=== PATIENT | female | born 1955 | race African-American/Black ===

== ENCOUNTER 2016-10-31 12:36 | Emergency (ER) | payer OTHER ==
[~2016-10-31] VITALS: Ht 162.6 cm; Wt 81.6 kg
[~2016-10-31 12:36] MED LIST: ALPRAZOLAM0.5 MG PO; AMLODIPINE BESY10 MG ORAL; ASPIR 8181 MG ORAL; AZITHROMYCIN250 MG ORAL; BACTRIM-DS1 EA ORAL; BENADRYL25 MG ORAL; BENAZEPRIL HCL20 MG ORAL; GLIMEPIRIDE2 MG ORAL; IBUPROFEN600 MG ORAL; LACTULOSE20 GM/301 ORAL; LEVAQUIN500 MG ORAL; METFORMIN HCL850 M1 ORAL; PHENERGAN6.25 MG/5 ORAL; PROAIR HFA8.5 GM INH; PROMETHAZINE-C118 M1 ORAL; ROBITUSSIN COU118 M4 PO; TENORMIN25 MG ORAL; XANAX0.5 MG ORAL; ZITHROMAX250 MG ORAL
[2016-10-31 13:05] VITALS: BP 123/78
[2016-10-31] MEDS ORDERED: FLONASE ALLERG9.9 ML NS (13:19)
[2016-10-31] MEDS ORDERED: CLARITIN-D 241 EACH PO (13:19)
[2016-10-31 13:26] VITALS: BP 123/78
--- NOTE | 2016-10-31 14:44 | Emergency Room Report ---
History of Present Illness General Chief Complaint: Upper Respiratory Illness Source: Patient Present Illness [facility] The patient is a 60 yo F presenting for cough and congestion x 1 week. The patient describes the cough as producing a white sputum. The patient admits to sneezing and watery eyes. The patient denies any fever, chills, SOB, CP, IBANEZ, N, V, abd pain. The patient denies sick contacts or recent travel. The patient states that she does have a history of allergies and this feels similar. The patient has been using nyquil which does not help. Allergies: Coded Allergies: No Known Allergies (Unverified , 01/02/15) Patient History Past Medical History: see triage record Pertinent Family History: none Reviewed Nursing Documentation: PMH: Agreed, PSxH: Agreed Nursing Documentation-PMH Past Medical History: No History, Except For Hx Cardiac Problems: No Hx Hypertension: Yes Hx Pacemaker: No Hx Asthma: Yes - Bronchitis Hx COPD: No Hx Diabetes: Yes Hx Cancer: No Hx Gastrointestinal Problems: No Hx Dialysis: No Hx Neurological Problems: No Hx Cerebrovascular Accident: No Hx Seizures: No Review of Systems All Other Systems: negative except mentioned in HPI Physical Exam Vital Signs Date Time Temp Pulse Resp B/P Pulse Ox O2 Delivery O2 Flow Rate FiO2 10/31/16 12:58 99.5 108 18 123/78 94 Room Air Sp02 EP Interpretation: reviewed, normal General Appearance: no apparent distress, alert, GCS 15, non-toxic Head: normocephalic, atraumatic Eyes: bilateral eye PERRL, bilateral eye normal inspection ENT: hearing grossly normal, normal pharynx, no angioedema, normal voice, uvula midline, moist mucus membranes, nasal congestion Neck: full range of motion, supple/symm/no masses Respiratory: chest non-tender, lungs clear, normal breath sounds, speaking full sentences Cardiovascular #1: regular rate, rhythm, no edema Musculoskeletal: back normal, gait/station normal, normal range of motion, non- tender Neurologic: alert, oriented x3, responsive, motor strength/tone normal, sensory intact, speech normal Psychiatric: judgement/insight normal, memory normal, mood/affect normal, no suicidal/homicidal ideation Skin: normal color, no rash, warm/dry, well hydrated Lymphatic: no adenopathy Medical Decision Making PA Attestation Dr. Cordova is my supervising physician. Patient management was discussed with my supervising physician Diagnostic Impression: Primary Impression: Rhinitis, allergic ER Course The patient is a 60 yo F presenting for cough and congestion x 1 week. DDx: allergic rhinitis, sinusitis, bronchitis, PNA, pharyngitis PE: afebrile. NAD HEENT: + bilat nasal congestion. Otherwise exam unremarkable. Lungs CTA bilat. The pt is ND'ed home with prescription for flonase and claritin. ER precautions given Last Vital Signs Date Time Temp Pulse Resp B/P Pulse Ox O2 Delivery O2 Flow Rate FiO2 10/31/16 12:58 99.5 108 18 123/78 94 Room Air Status: improved Disposition: HOME, SELF-CARE Condition: Improved Scripts Loratadine/Pseudoephedrine (CLARITIN-D 24 HOUR TABLET) 1 Each Tab.er.24h 1 TAB PO DAILY, #30 TAB Prov: RACH GERMAIN.A. 10/31/16 Fluticasone Propionate (Flonase Allergy Relief) 9.9 Ml Cement.susp 1 SPRAYS NS DAILY, #10 ML Prov: RACH GERMAIN.A. 10/31/16 Referrals: YENIFER DAIGLE (PCP) Patient Instructions: Allergies, Allergic Rhinitis Additional Instructions: I discussed my findings with the patient. All questions and concerns have been answered. Treatment and medication compliance have been addressed. I advised the patient that they need to follow up with PMD in 3-5 days. Return to ED if symptoms worsen, new symptoms arise, or if needed for any reason. Patient verbalized understanding of discharge instructions. RACH GERMAIN Oct 31, 2016 14:44
== END 2016-10-31 13:26 | disposition home or self-care (01) ==
LOC: EMR 13:17
DX: J30.9 Allergic rhinitis, unspecified (principal); I10 Essential (primary) hypertension; E11.9 Type 2 diabetes mellitus without complications
CPT/HCPCS: 99284

== ENCOUNTER 2016-11-17 14:52 | Emergency (ER) | payer OTHER ==
[~2016-11-17] VITALS: Ht 162.6 cm; Wt 81.6 kg
[~2016-11-17 14:52] MED LIST changes: +CLARITIN-D 241 EACH PO; +FLONASE ALLERG9.9 ML NS
[2016-11-17] MEDS ORDERED: ZITHROMAX250 MG ORAL (15:30)
[2016-11-17] MEDS ORDERED: PROMETHAZINE-D118 ML ORAL (15:30)
[2016-11-17 15:31] VITALS: BP 122/84
--- NOTE | 2016-11-17 15:46 | Emergency Room Report ---
History of Present Illness General Chief Complaint: Upper Respiratory Illness Source: Patient Present Illness [facility] The patient is a 60-year-old female presenting with sore throat, subjective fevers, and productive cough for the past 2 weeks. The patient was seen in this emergency department and diagnosed and treated for allergic rhinitis 2 weeks prior. The patient then developed sore throat and subjective fevers. The patient states that the treatment did not help. The patient denies any sick contacts or recent travel. Sore throat as described as an 8/10 dull ache and does not radiate from the throat. Pain worse with swallowing. The patient states the cough is keeping her up at night.Patient denies any other symptoms including headache, neck pain or stiffness, chest pain, shortness of breath, night sweats, hemoptysis Allergies: Coded Allergies: No Known Allergies (Unverified , 01/02/15) Patient History Past Medical History: see triage record Pertinent Family History: none Reviewed Nursing Documentation: PMH: Agreed, PSxH: Agreed Nursing Documentation-PMH Past Medical History: No History, Except For Hx Cardiac Problems: No Hx Hypertension: Yes Hx Pacemaker: No Hx Asthma: Yes - Bronchitis Hx COPD: No Hx Diabetes: Yes Hx Cancer: No Hx Gastrointestinal Problems: No Hx Dialysis: No Hx Neurological Problems: No Hx Cerebrovascular Accident: No Hx Seizures: No Review of Systems All Other Systems: negative except mentioned in HPI Physical Exam Vital Signs Date Time Temp Pulse Resp B/P Pulse Ox O2 Delivery O2 Flow Rate FiO2 11/17/16 15:11 99.0 100 16 122/84 95 Room Air Sp02 EP Interpretation: reviewed, normal General Appearance: no apparent distress, alert, GCS 15, non-toxic Head: normocephalic, atraumatic Eyes: bilateral eye PERRL, bilateral eye normal inspection ENT: hearing grossly normal, no angioedema, normal voice, uvula midline, tonsillar swelling, pharyngeal erythema Neck: full range of motion, supple/symm/no masses Respiratory: chest non-tender, lungs clear, normal breath sounds, no respiratory distress, no accessory muscle use, no wheezing, speaking full sentences Cardiovascular #1: regular rate, rhythm, no edema Genitourinary: normal inspection, no CVA tenderness Musculoskeletal: back normal, gait/station normal, normal range of motion, non- tender Neurologic: alert, oriented x3, responsive, motor strength/tone normal, sensory intact, speech normal Psychiatric: judgement/insight normal, memory normal, mood/affect normal, no suicidal/homicidal ideation Skin: normal color, no rash, warm/dry, well hydrated Lymphatic: no adenopathy Medical Decision Making PA Attestation Dr. Michaels is my supervising physician. Patient management was discussed with my supervising physician Diagnostic Impression: Primary Impression: Pharyngitis, acute ER Course The patient is a 60-year-old female presenting with sore throat, subjective fevers, and productive cough for the past 2 weeks Differential diagnosis include but not limited to pharyngitis, sinusitis, AOM, bronchitis, PNA Physical exam: Vitals within normal limits. Afebrile. No apparent distress HEENT exam: There is bilateral tonsillar edema, erythema. No exudate. Uvula midline. Moist mucous membranes. Lungs are clear to auscultation bilaterally Skin is warm and dry. No rash The patient will be discharged home with a prescription for azithromycin and cough medication and is given ER precautions. Patient will followup with primary care Last Vital Signs Date Time Temp Pulse Resp B/P Pulse Ox O2 Delivery O2 Flow Rate FiO2 11/17/16 15:31 99.0 16 122/84 95 Room Air 11/17/16 15:31 100 Status: improved Disposition: HOME, SELF-CARE Condition: Improved Scripts D-Methorphan Hb/Prometh Hcl* (PROMETHAZINE-DM SYRUP*) 118 Ml Syrup 5 ML ORAL Q6H Y for For Cough, #118 ML 0 Refills Prov: TERZIAN,RACH P.A. 11/17/16 Azithromycin* (ZITHROMAX*) 250 Mg Tablet 250 MG ORAL DAILY, #6 TAB 0 Refills Take two tables once daily for 1 day, then one tablet once daily for 4 days. Prov: TERZIAN,RACH P.A. 11/17/16 Patient Instructions: Upper Respiratory Infection, Adult Additional Instructions: I discussed my findings with the patient. All questions and concerns have been answered. Treatment and medication compliance have been addressed. I advised the patient that they need to follow up with PMD in 3-5 days. Return to ED if pain remains or worsens, cough worsens or remains, you notice blood in your sputum, you notice wheezing, you experience a fever, or if needed for any reason. Patient verbalized understanding of discharge instructions. RACH GERMAIN Nov 17, 2016 15:46
== END 2016-11-17 15:40 | disposition home or self-care (01) ==
LOC: EMR 15:37
DX: J02.9 Acute pharyngitis, unspecified (principal); I10 Essential (primary) hypertension; E11.9 Type 2 diabetes mellitus without complications
CPT/HCPCS: 99284

== ENCOUNTER 2016-12-28 11:23 | Emergency (ER) | payer OTHER ==
[~2016-12-28] VITALS: Ht 162.6 cm; Wt 81.6 kg
[~2016-12-28 11:23] MED LIST changes: +PROMETHAZINE-D118 ML ORAL
--- NOTE | 2016-12-28 12:22 | Emergency Room Report ---
History of Present Illness General Chief Complaint: Upper Respiratory Illness Source: Patient Present Illness [facility] The patient is a 61-year-old female presenting for one month of productive cough and fevers. The patient was seen in this emergency department at the onset of her symptoms and given a prescription for azithromycin. Patient states that this did initially help her symptoms have now returned. She denies any recent travel but does admit to a family member being diagnosed with pneumonia. The patient denies any other symptoms including N, V, IBANEZ, neck pain/ stiffness, rash, CP, SOB Allergies: Coded Allergies: No Known Allergies (Unverified , 01/02/15) Patient History Past Medical History: see triage record Pertinent Family History: none Social History: Reports: drug use - PCP Reviewed Nursing Documentation: PMH: Agreed, PSxH: Agreed Nursing Documentation-PMH Past Medical History: No Stated History Hx Cardiac Problems: No Hx Hypertension: Yes Hx Pacemaker: No Hx Asthma: Yes - Bronchitis Hx COPD: No Hx Diabetes: Yes Hx Cancer: No Hx Gastrointestinal Problems: No Hx Dialysis: No Hx Neurological Problems: No Hx Cerebrovascular Accident: No Hx Seizures: No Review of Systems All Other Systems: negative except mentioned in HPI Physical Exam Vital Signs Date Time Temp Pulse Resp B/P Pulse Ox O2 Delivery O2 Flow Rate FiO2 12/28/16 11:32 99.1 111 18 123/73 93 Room Air Sp02 EP Interpretation: reviewed, normal General Appearance: no apparent distress, alert, GCS 15, non-toxic Head: normocephalic, atraumatic Eyes: bilateral eye PERRL, bilateral eye normal inspection ENT: hearing grossly normal, normal pharynx, no angioedema, normal voice, uvula midline Respiratory: normal breath sounds, no accessory muscle use, crackles - LL lobe Cardiovascular #1: regular rate, rhythm, no edema Musculoskeletal: back normal, gait/station normal, normal range of motion, non- tender Neurologic: alert, oriented x3, responsive, motor strength/tone normal, sensory intact, normal gait, speech normal Psychiatric: judgement/insight normal, memory normal, mood/affect normal, no suicidal/homicidal ideation Skin: normal color, no rash, warm/dry, well hydrated Lymphatic: no adenopathy Medical Decision Making PA Attestation Dr. Lee is my supervising physician. Patient management was discussed with my supervising physician Diagnostic Impression: Primary Impression: Atypical pneumonia ER Course The patient is a 61-year-old female presenting for one month of productive cough and fevers. Differential diagnosis include but not limited to pharyngitis, sinusitis, AOM, bronchitis, PNA PE: afebrile. No tachypnea. No apparent distress. No TTP over maxillary or frontal sinuses. Lungs: LLL crackles. No accessory muscle use. No resp distress Heart: RRR, no abnormal heart sounds Ears: external auditory canal clear. Non erythematous. Bilat TM intact. Cone of light present bilat. No bulging of TM. No serous fluid seen. no nasal D/C Nor cervical lymphad No tonsillar exudate. Uvula midline.Oropharynx non erythematous The patient will be discharged home with a prescription for Levaquin, tylenol # 3 for cough, and prednisone. ER precautions given . Chest X-Ray Diagnostic Results EP Interpretation: Yes Findings: no consolidation, no effusion, no pneumothorax, no acute cardiopulmonary disease Number of Views: 1 PA Scribe Text I am acting as scribe for my supervising physician. My supervising physician's interpretation of the chest xrays are there is no consolidation, no effusion, no acute cardiopulmonary disease, no pneumothorax Last Vital Signs Date Time Temp Pulse Resp B/P Pulse Ox O2 Delivery O2 Flow Rate FiO2 12/28/16 11:59 111 18 Room Air 12/28/16 11:32 99.1 123/73 93 Status: improved Disposition: HOME, SELF-CARE Condition: Improved Scripts Levofloxacin* (LEVAQUIN*) 500 Mg Tablet 500 MG ORAL DAILY, #14 TAB Prov: TERZIAN,RACH P.A. 12/28/16 Prednisone* (PREDNISONE*) 20 Mg Tablet 40 MG ORAL DAILY for 5 Days, TAB Prov: TERZIAN,RACH P.A. 12/28/16 Acetaminophen With Codeine (T#3) (TYLENOL #3 TAB*) Y Tab 1 TAB ORAL Q6HR Y for For Pain, #15 TAB Prov: TERZIAN,RACH P.A. 12/28/16 TERZIAN,RACH P.A. Dec 28, 2016 12:22
[2016-12-28 13:00] VITALS: BP 123/73
[2016-12-28] MEDS ORDERED: PREDNISONE20 MG ORAL (13:03)
[2016-12-28] MEDS ORDERED: ACETAMINOPHEN-1 EAC1 ORAL (13:03)
[2016-12-28] MEDS ORDERED: LEVAQUIN500 MG ORAL (13:03)
[2016-12-28 13:15] VITALS: BP 123/73
--- NOTE | 2016-12-28 13:47 | Diagnostic Imaging Report ---
Indication: COUGH Technique: One view of the chest Comparison: none Findings: Lungs and pleural spaces are clear. Heart size is normal. Impression: No acute process
== END 2016-12-28 13:15 | disposition home or self-care (01) ==
LOC: EMR 12:20
DX: J18.9 Pneumonia, unspecified organism (principal); I10 Essential (primary) hypertension; E11.9 Type 2 diabetes mellitus without complications
CPT/HCPCS: 71010; 99284

== ENCOUNTER 2017-01-09 12:32 | Emergency (ER) | payer OTHER ==
[~2017-01-09] VITALS: Ht 162.6 cm; Wt 81.6 kg
[~2017-01-09 12:32] MED LIST changes: +ACETAMINOPHEN-1 EAC1 ORAL; +PREDNISONE20 MG ORAL
[2017-01-09 12:42] VITALS: BP 123/78
--- NOTE | 2017-01-09 13:29 | Emergency Room Report ---
History of Present Illness General Chief Complaint: Upper Respiratory Illness Source: Patient Present Illness HPI 61-year-old female presents emergency department complaining of cough with intermittent clear phlegm x3 days. Patient denies fevers chills nausea vomiting neck pain or stiffness. Patient states that her work is requiring her to be evaluated for her cough and to receive a return to work note. She denies abdominal pain, rashes, or recent travel. 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 Denies sore throat. Denies CP, Palpitations, SOB, Wheezing, LOC, AMS, dizziness, Changes in Vision, Sensation, paresthesias, or a sudden severe headache. Allergies: Coded Allergies: No Known Allergies (Unverified , 01/02/15) Patient History Past Medical History: see triage record Past Surgical History: none Pertinent Family History: none Social History: Reports: smoking Now: No Immunizations: UTD Reviewed Nursing Documentation: PMH: Agreed, PSxH: Agreed Nursing Documentation-PMH Past Medical History: No History, Except For Hx Cardiac Problems: No Hx Hypertension: Yes Hx Pacemaker: No Hx Asthma: Yes - Bronchitis Hx COPD: No Hx Diabetes: Yes Hx Cancer: No Hx Gastrointestinal Problems: No Hx Dialysis: No Hx Neurological Problems: No Hx Cerebrovascular Accident: No Hx Seizures: No Review of Systems All Other Systems: negative except mentioned in HPI Physical Exam Vital Signs Date Time Temp Pulse Resp B/P Pulse Ox O2 Delivery O2 Flow Rate FiO2 01/09/17 12:42 97.5 19 123/78 94 Room Air 01/09/17 12:42 102 Sp02 EP Interpretation: reviewed, normal, abnormal - mild tachycardia at 101- 102 bpm General Appearance: no apparent distress, alert, GCS 15, non-toxic Head: normocephalic, atraumatic Eyes: bilateral eye PERRL, bilateral eye normal inspection ENT: hearing grossly normal, normal pharynx, no angioedema, normal voice, TMs + canals normal, uvula midline, moist mucus membranes Neck: full range of motion, no meningismus, no bony tend, supple/symm/no masses Respiratory: chest non-tender, lungs clear, normal breath sounds, speaking full sentences Cardiovascular #1: regular rate, rhythm, no edema Musculoskeletal: back normal, gait/station normal, normal range of motion, non- tender Neurologic: alert, oriented x3, responsive, motor strength/tone normal, sensory intact, speech normal Psychiatric: judgement/insight normal, memory normal, mood/affect normal Skin: normal color, no rash, warm/dry, well hydrated Lymphatic: no adenopathy Medical Decision Making PA Attestation Dr. Vinson is my supervising Physician whom patient management has been discussed with. Diagnostic Impression: Primary Impression: Bronchitis Additional Impression: Cough in adult patient ER Course 61-year-old female presents emergency department complaining of cough with intermittent clear phlegm x3 days. Patient denies fevers chills nausea vomiting neck pain or stiffness. Patient states that her work is requiring her to be evaluated for her cough and to receive a return to work note. She denies abdominal pain, rashes, or recent travel. 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 Denies CP, Palpitations, SOB, Wheezing, LOC, AMS, dizziness, Changes in Vision, Sensation, paresthesias, or a sudden severe headache. Ddx considered but are not limited to URI, pneumonia, PE, strep pharyngitis, meningitis, bronchitis, COPD/ASTHMA Vital signs: Pt.is afebrile VS are WNL other than mild tachycardia at 101 BPM. H&PE are most consistent with bronchitis. ORDERS: none required at this time, the diagnosis is clinical ED INTERVENTIONS: None required at this time. DISCHARGE: At this time pt. is stable for d/c to home. Will provide printed patient care instructions, and any necessary prescriptions. Care plan and follow up instructions have been discussed with the patient prior to discharge. Last Vital Signs Date Time Temp Pulse Resp B/P Pulse Ox O2 Delivery O2 Flow Rate FiO2 01/09/17 12:45 100 16 Room Air 01/09/17 12:42 97.5 123/78 94 Disposition: HOME, SELF-CARE Condition: Stable Scripts Guaifenesin/Dextromethorphan (ROBITUSSIN COUGH-CHEST DM LIQ) 237 Ml Liquid 10 ML PO Q6HR, #118 ML Prov: Xiomara Bacon 01/09/17 Referrals: YENIFER DAIGLE (PCP) Departure Forms: Return to Work Return to Work Date: Jan 10, 2017 Work Restrictions: None Return to Full Activity: Jan 10, 2017 Patient Instructions: Cough, Adult Additional Instructions: Take medications as directed. Follow up with PCP in 3-5 days Return sooner to ED if new symptoms occur, or current symptoms become worse. - Please note that this Emergency Department Report was dictated using [employer] software, occasionally this can lead to erroneous entry secondary to interpretation by the dictation equipment. Xiomara Bacon Jan 09, 2017 13:29
[2017-01-09] MEDS ORDERED: ROBITUSSIN COU237 M1 PO (13:31)
[2017-01-09 13:45] VITALS: BP 133/82
== END 2017-01-09 13:50 | disposition home or self-care (01) ==
LOC: EMR 13:22
DX: J20.9 Acute bronchitis, unspecified (principal); I10 Essential (primary) hypertension; J45.909 Unspecified asthma, uncomplicated; E11.9 Type 2 diabetes mellitus without complications; R00.0 Tachycardia, unspecified
CPT/HCPCS: 99283

== ENCOUNTER 2017-05-05 22:40 | Emergency (ER) | payer SELFPAY ==
[~2017-05-05] VITALS: Ht 162.6 cm; Wt 72.6 kg
[~2017-05-05 22:40] MED LIST changes: +ROBITUSSIN COU237 M1 PO
[2017-05-05] MEDS ORDERED: VENTOLIN HFA18 GM INH (23:20)
[2017-05-05] MEDS ORDERED: ROBITUSSIN COU237 M1 PO (23:20)
[2017-05-05 23:38] VITALS: BP 125/75
[2017-05-05 23:39] VITALS: BP 132/78
--- NOTE | 2017-05-06 00:50 | Emergency Room Report ---
History of Present Illness General Chief Complaint: Medication Refill Source: Patient Present Illness HPI [id number] here for refill of albuterol pump and cough syrup ?COPD/asthma C/o dry cough for 2-3 days Denies fever/chills, chest pain, SOB No sick contacts URI symptoms Allergies: Coded Allergies: No Known Allergies (Unverified , 01/02/15) Patient History Past Medical History: other - COPD/asthma? Past Surgical History: none Pertinent Family History: none Social History: Reports: drug use Now: No Immunizations: UTD Reviewed Nursing Documentation: PMH: Agreed, PSxH: Agreed Nursing Documentation-PMH Hx Cardiac Problems: No Hx Hypertension: Yes Hx Pacemaker: No Hx Asthma: Yes - Bronchitis Hx COPD: No Hx Diabetes: Yes Hx Cancer: No Hx Gastrointestinal Problems: No Hx Dialysis: No Hx Neurological Problems: No Hx Cerebrovascular Accident: No Hx Seizures: No Review of Systems All Other Systems: negative except mentioned in HPI Physical Exam Vital Signs Date Time Temp Pulse Resp B/P Pulse Ox O2 Delivery O2 Flow Rate FiO2 05/05/17 23:09 98.4 100 18 125/75 96 Room Air Sp02 EP Interpretation: reviewed, normal General Appearance: normal inspection, well appearing, no apparent distress, alert, GCS 15, non-toxic, other - dry hacking cough Head: normocephalic, atraumatic Eyes: bilateral eye EOMI, bilateral eye PERRL ENT: normal ENT inspection, hearing grossly normal, normal voice Neck: normal inspection, full range of motion, supple, no bony tend Respiratory: normal inspection, lungs clear, normal breath sounds, no respiratory distress, no retraction, no accessory muscle use, no wheezing, speaking full sentences Cardiovascular #1: regular rate, rhythm, no edema Gastrointestinal: normal inspection, normal bowel sounds, non tender, soft, no guarding, no hernia Genitourinary: no CVA tenderness Musculoskeletal: normal inspection, back normal, normal range of motion, Emmanuelle' s Sign negative Neurologic: normal inspection, alert, oriented x3, responsive, cot assembler III-XII nml as tested, motor strength/tone normal, speech normal Psychiatric: normal inspection, judgement/insight normal, mood/affect normal Skin: normal inspection, normal color, no rash Medical Decision Making Diagnostic Impression: Primary Impression: Encounter for medication refill Additional Impression: Bronchitis ER Course Acute bronchitis VSS. Afebrile Lungs CTAB - no clinical signs of PNA Otherwise well-appearing Patient actually came to ER to accompany sister who fell/hurt leg, "Wanted to get checked out" Ran out of home albuterol/ cough syrup Rx provided PMD followup as needed Last Vital Signs Date Time Temp Pulse Resp B/P Pulse Ox O2 Delivery O2 Flow Rate FiO2 05/05/17 23:39 76 18 132/78 97 Room Air 05/05/17 23:38 98.4 Status: improved Disposition: HOME, SELF-CARE Condition: Improved Scripts Albuterol Sulfate (VENTOLIN HFA) 18 Gm Hfa.aer.ad 1 PUFF INH EVERY 6 HOURS, #18 GM 0 Refills Prov: IKE RAHMAN M.D. 05/05/17 Guaifenesin/Dextromethorphan (ROBITUSSIN COUGH-CHEST DM LIQ) 237 Ml Liquid 10 ML PO Q6HR, #118 ML Prov: IKE RAHMAN M.D. 05/05/17 Patient Instructions: Medicine Refill at the Emergency Department IKE RAHMAN M.D. May 06, 2017 00:50
== END 2017-05-05 23:46 | disposition home or self-care (01) ==
LOC: EMR 22:54
DX: Z76.0 Encounter for issue of repeat prescription (principal); J45.909 Unspecified asthma, uncomplicated; E11.9 Type 2 diabetes mellitus without complications; I10 Essential (primary) hypertension
CPT/HCPCS: 99284

== ENCOUNTER 2017-06-22 14:06 | Emergency (ER) | payer SELFPAY ==
[~2017-06-22] VITALS: Ht 162.6 cm; Wt 77.1 kg
[~2017-06-22 14:06] MED LIST changes: +VENTOLIN HFA18 GM INH
[2017-06-22 14:45] VITALS: BP 135/81
[2017-06-22 15:05] VITALS: BP 135/81
[2017-06-22] MEDS ORDERED: PROMETHAZI6.25 MG/1 ORAL (15:13)
[2017-06-22] MEDS ORDERED: PROAIR HFA8.5 GM INH (15:13)
[2017-06-22] MEDS ORDERED: METFORMIN HCL500 M1 ORAL (15:13)
[2017-06-22] MEDS ORDERED: ZITHROMAX250 MG ORAL (15:13)
--- NOTE | 2017-06-22 17:08 | Diagnostic Imaging Report ---
Indication: Cough Comparison: 12/28/16 A single view chest radiograph was obtained. Findings: Interstitial edema may be present. Pulmonary vascularity is prominent and heart size is prominent. Bones are remarkable. Impression: Mild CHF/interstitial edema suspected
--- NOTE | 2017-06-22 19:58 | Emergency Room Report ---
History of Present Illness General Chief Complaint: Upper Respiratory Illness Source: Patient Present Illness [facility] The patient is a 61-year-old female presenting for cough and metformin refill. She states that she has had cough for the past 2 days. She states that it produces a green sputum. She also admits to subjective fever and chills. She denies any pain. He states that she ran out of her diabetic medications yesterday and has been unable to get appointment with primary doctor. She denies any other symptoms including nausea, vomiting, shortness of breath, chest pain, abdominal pain, Allergies: Coded Allergies: No Known Allergies (Unverified , 01/02/15) Patient History Past Medical History: see triage record Pertinent Family History: none Reviewed Nursing Documentation: PMH: Agreed, PSxH: Agreed Nursing Documentation-PMH Past Medical History: No History, Except For Hx Cardiac Problems: No Hx Hypertension: Yes Hx Pacemaker: No Hx Asthma: Yes - Bronchitis Hx COPD: No Hx Diabetes: Yes Hx Cancer: No Hx Gastrointestinal Problems: No Hx Dialysis: No Hx Neurological Problems: No Hx Cerebrovascular Accident: No Hx Seizures: No Review of Systems All Other Systems: negative except mentioned in HPI Physical Exam Vital Signs Date Time Temp Pulse Resp B/P (MAP) Pulse Ox O2 Delivery O2 Flow Rate FiO2 06/22/17 14:09 98.1 106 18 157/98 96 Room Air Sp02 EP Interpretation: reviewed, normal General Appearance: no apparent distress, alert, GCS 15, non-toxic Head: normocephalic, atraumatic Eyes: bilateral eye normal inspection, bilateral eye PERRL ENT: hearing grossly normal, normal pharynx, no angioedema, normal voice Neck: full range of motion, supple/symm/no masses Respiratory: normal inspection, chest non-tender, no accessory muscle use, speaking full sentences, wheezing - RLL Cardiovascular #1: regular rate, rhythm, no edema Cardiovascular #2: 2+ carotid (R), 2+ carotid (L), 2+ radial (R), 2+ radial (L) , 2+ dorsalis pedis (R), 2+ dorsalis pedis (L) Genitourinary: normal inspection, no CVA tenderness Musculoskeletal: back normal, gait/station normal, normal range of motion, non- tender Neurologic: alert, oriented x3, responsive, motor strength/tone normal, sensory intact, speech normal Psychiatric: judgement/insight normal, memory normal, mood/affect normal, no suicidal/homicidal ideation Skin: normal color, no rash, warm/dry, well hydrated Lymphatic: no adenopathy Medical Decision Making PA Attestation Dr. Hinton is my supervising physician. Patient management was discussed with my supervising physician Diagnostic Impression: Primary Impression: Atypical pneumonia Additional Impression: Diabetes mellitus Qualified Codes: E11.8 - Type 2 diabetes mellitus with unspecified complications ER Course The patient is a 61-year-old female presenting for cough and metformin refill Differential diagnosis include but not limited to pharyngitis, sinusitis, bronchitis, PNA PE: afebrile. NAD RRR Lungs: Wheezing to RLL. No resp distress Oropharynx is unremarkable. No lymphadenopathy Chest x-ray shows interstitial edema. No pleural effusion The patient is given a refill of metformin and will also be treated for atypical pneumonia due to symptoms. She is to followup with her primary doctor as soon as possible. ER precautions are given Chest X-Ray Diagnostic Results Chest X-Ray Diagnostic Results : Chest X-Ray Ordered: Yes # of Views/Limited/Complete: 1 View Indication: Other - cough EP Interpretation: Yes Interpretation: no effusion, no pneumothorax, other - edema Impression: Other - interstitial edema Electronically Signed by: Eugene Germain PA-C PA Scribe Text My and my supervising physician's interpretation of the chest xrays are there appears to be interstitial edema. Last Vital Signs Date Time Temp Pulse Resp B/P (MAP) Pulse Ox O2 Delivery O2 Flow Rate FiO2 06/22/17 15:05 99.0 104 18 135/81 99 Room Air Status: improved Disposition: HOME, SELF-CARE Condition: Improved Scripts Azithromycin* (ZITHROMAX*) 250 Mg Tablet 250 MG ORAL DAILY, #6 TAB 0 Refills Take two tables once daily for 1 day, then one tablet once daily for 4 days. Prov: YASMANIZIAN,EUGENE P.A. 06/22/17 Promethazine Hcl (PROMETHAZINE HCL*) 6.25 Mg/5 Ml Syrup 5 ML ORAL Q6H, #120 ML 0 Refills Prov: TERZIAN,EUGENE P.A. 06/22/17 Metformin Hcl* (METFORMIN HCL*) 500 Mg Tablet 500 MG ORAL TWICE A DAY, #30 TAB Prov: TERZIAN,EUGENE P.A. 06/22/17 Albuterol Sulfate* (PROAIR HFA*) 8.5 Gm Hfa.aer.ad 2 PUFFS INH Q6H, #8.5 GM 0 Refills Prov: EUGENE GERMAIN 06/22/17 Referrals: YENIFER DAIGLE (PCP) Patient Instructions: Type 2 Diabetes Mellitus, Adult, Cough, Adult, Community- Acquired Pneumonia, Adult Additional Instructions: I discussed my findings with the patient. All questions and concerns have been answered. Treatment and medication compliance have been addressed. I advised the patient that they need to follow up with PMD in 3-5 days. Return to ED if symptoms worsen, new symptoms arise, or if needed for any reason. Patient verbalized understanding of discharge instructions. EUGENE GERMAIN Jun 22, 2017 19:58
== END 2017-06-22 15:05 | disposition home or self-care (01) ==
LOC: EMR 14:45
DX: J18.9 Pneumonia, unspecified organism (principal); E11.9 Type 2 diabetes mellitus without complications; I10 Essential (primary) hypertension; J44.9 Chronic obstructive pulmonary disease, unspecified
CPT/HCPCS: 71010; 99284

== ENCOUNTER 2017-07-30 19:25 | Emergency (ER) | payer MEDICAID ==
[~2017-07-30] VITALS: Ht 162.6 cm; Wt 84.8 kg
[~2017-07-30 19:25] MED LIST changes: +METFORMIN HCL500 M1 ORAL; +PROMETHAZI6.25 MG/1 ORAL
[2017-07-30 19:30] VITALS: BP 155/109
[2017-07-30] MEDS ORDERED: Azithromycin 500 MG in NS 275 ML IV ONE (19:45)
[2017-07-30] MEDS ORDERED: Solu-MEDROL 125mg Inj IVP ONE (19:45)
[2017-07-30] MEDS ORDERED: Ipratropium 0.02% Inh Soln 2.5ml UD HHN ONE (19:45)
[2017-07-30] MEDS ORDERED: Azithromycin 500mg Inj IV ONE (19:58)
[2017-07-30 20:14] LABS: BASOPHILS % (AUTO) 1.1 % (0.0-2.0); EOSINOPHILS % (AUTO) 0.9 % (0.0-3.0); LYMPHOCYTES % (AUTO) 31.3 % (20.0-45.0); MEAN CORPUSCULAR HEMOGLOBIN 30.9 PG (27.0-31.0); MEAN CORPUSCULAR HGB CONC 31.3 G/DL (32.0-36.0); MEAN CORPUSCULAR VOLUME 99 FL (80-99); MEAN PLATELET VOLUME 7.1 FL (6.5-10.1); MONOCYTES % (AUTO) 5.9 % (1.0-10.0); NEUTROPHILS % (AUTO) 60.7 % (45.0-75.0); PLATELET COUNT 280 K/UL (150-450); RED BLOOD COUNT 5.21 M/UL (4.20-5.40); WHITE BLOOD COUNT 9.2 K/UL (4.8-10.8)
[2017-07-30] MEDS: Albuterol ud Inhalation HHN SCH ×2 (20:14→21:08)
[2017-07-30 20:21] LABS: PROTHROMBIN TIME 10.7 SEC (9.30-11.50)
[2017-07-30 20:26] LABS: ANION GAP 10 mmol/L (5-15); CALCIUM 8.6 MG/DL (8.5-10.1); CARBON DIOXIDE 24 MMOL/L (21-32); CHLORIDE 108 MMOL/L (98-107); GLOMERULAR FILTRATION RATE > 60 mL/min (>60); POTASSIUM 4.2 MMOL/L (3.5-5.1); SODIUM 142 MMOL/L (136-145)
--- NOTE | 2017-07-30 20:29 | Emergency Room Report ---
History of Present Illness General Chief Complaint: Dyspnea/Respdistress Source: Patient Present Illness HPI Patient presents with several days of cough and shortness of breath. She feels she is worse because of breathing chemicals her sister has used to clean. She does smoke. No fever. Phlegm is moderately productive with green color. Some discomfort (mild - reported 0/10) in chest with cough. She hears herself wheezing and has run out of her inhaler. She doesn't recognize "prednisone" and is uncertain if she ever has taken. According to our records she has had some CHF in the past. Not taking diuretics. Never intubated and this is not her worst attack. She has been treated for pneumonia and atypical pneumonia twice this year ( azithro and levaquin). She has anxiety and depression over recent move into her sister's home. No SI. No rashes, dysuria, NVD, joint pain, headache. She has diabetes on oral medication. No polies. Although she has a history of hypertension, no medications are seen or reported. Allergies: Coded Allergies: No Known Allergies (Unverified , 01/02/15) Patient History Past Medical History: see triage record Social History: Reports: smoking Social History Narrative at home Last Menstrual Period: None Now: No Reviewed Nursing Documentation: PMH: Agreed, PSxH: Agreed Nursing Documentation-PMH Hx Cardiac Problems: No Hx Hypertension: Yes Hx Pacemaker: No Hx Asthma: Yes - Bronchitis Hx COPD: No Hx Diabetes: Yes Hx Cancer: No Hx Gastrointestinal Problems: No Hx Dialysis: No Hx Neurological Problems: No Hx Cerebrovascular Accident: No Hx Seizures: No Review of Systems All Other Systems: negative except mentioned in HPI Physical Exam Vital Signs Date Time Temp Pulse Resp B/P (MAP) Pulse Ox O2 Delivery O2 Flow Rate FiO2 07/30/17 19:26 97.9 114 22 155/109 96 Room Air Sp02 EP Interpretation: reviewed, normal General Appearance: well appearing, no apparent distress, GCS 15 Head: normocephalic Eyes: bilateral eye normal inspection, bilateral eye PERRL ENT: moist mucus membranes Neck: supple Respiratory: lungs clear, normal breath sounds Cardiovascular #1: no edema, tachycardia Cardiovascular #2: 2+ radial (R) Gastrointestinal: normal inspection, normal bowel sounds, non tender, no mass, non-distended, overweight Musculoskeletal: back normal, gait/station normal, normal range of motion, no calf tenderness Neurologic: alert, oriented x3, grossly normal Psychiatric: depressed affect, anxious Skin: normal inspection, warm/dry Medical Decision Making Diagnostic Impression: Primary Impression: COPD exacerbation Additional Impressions: Polycythemia Tobacco abuse ER Course Patient presents with cough and wheezing. Ddx: asthma, COPD, bronchitis, pneumonia, CHF, PE, AMI others. Urgent evaluation with EKG, CXR, labs. Treatment with solumedron and breathing treatments. Patient focus on chemical exposure but also smokes. EKG without injury. CXR with in cor and vas congestion (mild) poor inspiration - this was compared to films 06/22/17 and slightly less interstitial srinivasan. Labs with normal WBC, elevated H/H, slightly elevated BNP, neg troponin. No prior labs on file. Antibiotics are begun as there is purulent sputum in asthmatic. Mixed picture with CXR and BNP, but this event appears more related to COPD and infection. Question whether component of CHF might contribute to symptoms. She is improved and this evaluation can be undertaken as outpatient. Consider echocardiogram. Without pain, this would be an atypical presentation for PE - also without tachycardia. If not improving, consider inpatient evaluation. Patient is improved. Quite concerned over elevated H/H - I gave labs for review with PMD. No medical emergency at this time. Anxiety and stress are components of this presentation. Suggested that she follow up for help with living situation. Patient stable for outpatient observation and treatment. Laboratory Tests Test 07/30/17 19:50 White Blood Count 9.2 K/UL (4.8-10.8) Red Blood Count 5.21 M/UL (4.20-5.40) Hemoglobin 16.1 G/DL (12.0-16.0) H Hematocrit 51.5 % (37.0-47.0) H Mean Corpuscular Volume 99 FL (80-99) Mean Corpuscular Hemoglobin 30.9 PG (27.0-31.0) Mean Corpuscular Hemoglobin Concent 31.3 G/DL (32.0-36.0) L Red Cell Distribution Width 15.0 % (11.6-14.8) H Platelet Count 280 K/UL (150-450) Mean Platelet Volume 7.1 FL (6.5-10.1) Neutrophils (%) (Auto) 60.7 % (45.0-75.0) Lymphocytes (%) (Auto) 31.3 % (20.0-45.0) Monocytes (%) (Auto) 5.9 % (1.0-10.0) Eosinophils (%) (Auto) 0.9 % (0.0-3.0) Basophils (%) (Auto) 1.1 % (0.0-2.0) Prothrombin Time 10.7 SEC (9.30-11.50) Prothrombin Time INR 1.0 (0.9-1.1) PTT 26 SEC (23-33) Sodium Level 142 MMOL/L (136-145) Potassium Level 4.2 MMOL/L (3.5-5.1) Chloride Level 108 MMOL/L (98-107) H Carbon Dioxide Level 24 MMOL/L (21-32) Anion Gap 10 mmol/L (5-15) Blood Urea Nitrogen 16 mg/dL (7-18) Creatinine 1.0 MG/DL (0.55-1.30) Estimate Glomerular Filtration Rate > 60 mL/min (>60) Glucose Level 113 MG/DL (74-106) H Calcium Level 8.6 MG/DL (8.5-10.1) Total Bilirubin 0.4 MG/DL (0.2-1.0) Aspartate Amino Transferase (AST) 78 U/L (15-37) H Alanine Aminotransferase (ALT) 112 U/L (12-78) H Alkaline Phosphatase 88 U/L (46-116) Total Creatine Kinase 156 U/L (26-308) Troponin I 0.037 ng/mL (0.000-0.056) Pro-B-Type Natriuretic Peptide 3192 pg/mL (0-125) H Total Protein 8.0 G/DL (6.4-8.2) Albumin 3.5 G/DL (3.4-5.0) Globulin 4.5 g/dL Albumin/Globulin Ratio 0.8 (1.0-2.7) L EKG Diagnostic Results Rate: tachycardiac ST Segments: no acute changes - biatrial enlargement LAD, pulmonary disease pattern Rhythm Strip Diag. Results EP Interpretation: yes Rhythm: no PVC's, no ectopy, other - ST Chest X-Ray Diagnostic Results Chest X-Ray Diagnostic Results : Chest X-Ray Ordered: Yes # of Views/Limited/Complete: 1 View Indication: Shortness of Breath Interpretation: no effusion, no pneumothorax, other - cardiomegally, mild CHF Impression: Other Electronically Signed by: Electronically signed by Chad Michaels MD Last Vital Signs Date Time Temp Pulse Resp B/P (MAP) Pulse Ox O2 Delivery O2 Flow Rate FiO2 07/30/17 22:39 76 22 137/92 96 07/30/17 21:08 Room Air 07/30/17 19:30 97.9 Status: improved Disposition: HOME, SELF-CARE Condition: Improved Scripts Prednisone* (PREDNISONE*) 20 Mg Tablet 20 MG ORAL DAILY, #5 TAB Prov: Chad Michaels M.D. 07/30/17 Albuterol Sulfate* (ALBUTEROL SULFATE MDI*) 8.5 Gm Hfa.aer.ad 2 PUFF INH Q6H, #1 EA 1 Refill Prov: Chad Michaels M.D. 07/30/17 Levofloxacin* (LEVAQUIN*) 500 Mg Tablet 500 MG ORAL DAILY, #7 TAB Prov: Chad Michaels M.D. 07/30/17 Chad Michaels M.D. Jul 30, 2017 20:29
[2017-07-30 20:36] LABS: ALANINE AMINOTRANSFERASE 112 U/L (12-78); ALBUMIN/GLOBULIN RATIO 0.8 (1.0-2.7); ASPARTATE AMINO TRANSFERASE 78 U/L (15-37)
[2017-07-30] MEDS ORDERED: ALBUTEROL SULF8.5 GM INH (21:48)
[2017-07-30] MEDS ORDERED: LEVAQUIN500 MG ORAL (21:48)
[2017-07-30] MEDS ORDERED: PREDNISONE20 MG ORAL (21:48)
[2017-07-30 22:39] VITALS: BP 137/92
--- NOTE | 2017-07-31 11:37 | Diagnostic Imaging Report ---
Indication: DYSPNEA Technique: One view of the chest Comparison: 06/22/2017 Findings: Less optimal inspiration currently. The heart is enlarged. Again demonstrated is equivocal mild interstitial congestive change. The pleural spaces are clear. Impression: Cardiomegaly. Equivocal mild interstitial congestion, similar to previous study of 02/04/70
--- NOTE | 2017-08-02 08:40 | Cardiology Report ---
APPROVED REPORT EKG Measurement Heart [id number] Sinus tachycardia Biatrial enlargement Left axis deviation Pulmonary disease pattern Abnormal ECG
== END 2017-07-30 22:03 | disposition home or self-care (01) ==
LOC: EMR 20:47
DX: J44.1 Chronic obstructive pulmonary disease with (acute) exacerbation (principal); D75.1 Secondary polycythemia; Z72.0 Tobacco use; I10 Essential (primary) hypertension
CPT/HCPCS: 36415; 71010; 80053; 82550; 83880; 84484; 85025; 85610; 85730; 93005; 94640; 94664; 96361; 96365; 96375; 99284; J0456; J2930; J7050

== ENCOUNTER 2017-08-24 18:28 | Emergency (ER) | payer MEDICAID ==
[~2017-08-24] VITALS: Ht 162.6 cm; Wt 79.8 kg
[~2017-08-24 18:28] MED LIST changes: +ALBUTEROL SULF8.5 GM INH
[2017-08-24 18:48] VITALS: BP 123/73
[2017-08-24] MEDS ORDERED: Albuterol ud Inhalation HHN ONE (20:00)
[2017-08-24] MEDS ORDERED: Ipratropium 0.02% Inh Soln 2.5ml UD HHN ONE (20:00)
[2017-08-24] MEDS ORDERED: PROAIR HFA8.5 GM INH (20:36)
[2017-08-24] MEDS ORDERED: PROMETHAZINE-C118 M1 ORAL (20:36)
[2017-08-24 20:56] VITALS: BP 126/74
--- NOTE | 2017-08-24 21:50 | Emergency Room Report ---
History of Present Illness General Chief Complaint: Upper Respiratory Illness Source: Patient Present Illness [facility] The patient is a 61-year-old female with a history of bronchitis and asthma presenting for cough. Symptoms began approximately 1 month prior. The cough is described as dry. She denies any known sick contacts recent travel. She denies fever or chills. Pain is a 5/10 dull ache to the chest and occurs with coughing only. She denies any other symptoms Allergies: Coded Allergies: No Known Allergies (Unverified , 01/02/15) Patient History Past Medical History: see triage record Pertinent Family History: none Reviewed Nursing Documentation: PMH: Agreed, PSxH: Agreed Nursing Documentation-PMH Hx Cardiac Problems: No Hx Hypertension: Yes Hx Pacemaker: No Hx Asthma: Yes - Bronchitis Hx COPD: No Hx Diabetes: Yes Hx Cancer: No Hx Gastrointestinal Problems: No Hx Dialysis: No Hx Neurological Problems: No Hx Cerebrovascular Accident: No Hx Seizures: No Review of Systems All Other Systems: negative except mentioned in HPI Physical Exam Vital Signs Date Time Temp Pulse Resp B/P (MAP) Pulse Ox O2 Delivery O2 Flow Rate FiO2 08/24/17 18:40 97.5 104 14 123/73 95 08/24/17 18:48 Room Air 08/24/17 20:22 21 Sp02 EP Interpretation: reviewed, normal General Appearance: no apparent distress, alert, GCS 15, non-toxic Head: normocephalic, atraumatic Eyes: bilateral eye normal inspection, bilateral eye PERRL ENT: hearing grossly normal, normal pharynx, no angioedema, normal voice Neck: full range of motion, supple/symm/no masses Respiratory: chest non-tender, no rhonchi - bilat, speaking full sentences, wheezing - bilat Cardiovascular #1: regular rate, rhythm, no edema Genitourinary: normal inspection, no CVA tenderness Musculoskeletal: back normal, gait/station normal, normal range of motion, non- tender Neurologic: alert, oriented x3, responsive, motor strength/tone normal, sensory intact, speech normal Psychiatric: judgement/insight normal, memory normal, mood/affect normal, no suicidal/homicidal ideation Skin: normal color, no rash, warm/dry, well hydrated Medical Decision Making PA Attestation Dr. Cordova is my supervising physician. Patient management was discussed with my supervising physician Diagnostic Impression: Primary Impression: Bronchitis ER Course The patient is a 61-year-old female with a history of bronchitis and asthma presenting for cough Differential diagnosis include but not limited to pharyngitis, sinusitis, AOM, bronchitis, PNA PE: afebrile. No tachypnea. No apparent distress. No TTP over maxillary or frontal sinuses. Lungs: diffuse wheezing. No accessory muscle use. No resp distress Heart: RRR, no abnormal heart sounds Ears: external auditory canal clear. Non erythematous. Bilat TM intact. Cone of light present bilat. No bulging of TM. No serous fluid seen. no nasal D/C Nor cervical lymphad No tonsillar exudate. Uvula midline.Oropharynx non erythematous the patient is given a breathing treatment and felt significantly better. Lung sounds have improved The patient will be discharged home with a prescription for Albuterol and cough medication. She will follow up with her primary doctor. ER precautions given Chest X-Ray Diagnostic Results Chest X-Ray Diagnostic Results : Chest X-Ray Ordered: Yes # of Views/Limited/Complete: 1 View Indication: Other - cough EP Interpretation: Yes JUAN DANIEL Xray: Interpretation reviewed, by supervising MD, and agrees with findings. Interpretation: no consolidation, no effusion, no pneumothorax, other - cardiomegaly Impression: No acute disease Electronically Signed by: Eugene Germain PA-C Last Vital Signs Date Time Temp Pulse Resp B/P (MAP) Pulse Ox O2 Delivery O2 Flow Rate FiO2 08/24/17 20:56 97.5 74 20 126/74 99 Room Air 21 Status: improved Disposition: HOME, SELF-CARE Condition: Improved Scripts Codeine/Promethazine Hcl* (PROMETHAZINE-CODEINE SYRUP*) 118 Ml Syrup 5 ML ORAL Q6H Y for For Cough, #118 ML 0 Refills Prov: TERZIAN,EUGENE P.A. 08/24/17 Albuterol Sulfate* (PROAIR HFA*) 8.5 Gm Hfa.aer.ad 2 PUFFS INH Q6H, #8.5 GM 0 Refills Prov: TERZIAN,EUGENE P.A. 08/24/17 Patient Instructions: Acute Bronchitis Additional Instructions: I discussed my findings with the patient. All questions and concerns have been answered. Treatment and medication compliance have been addressed. I advised the patient that they need to follow up with PMD in 3-5 days. Return to ED if symptoms worsen, new symptoms arise, or if needed for any reason. Patient verbalized understanding of discharge instructions. EUGENE GERMAIN Aug 24, 2017 21:50
--- NOTE | 2017-08-25 14:58 | Diagnostic Imaging Report ---
Indication: COUGH Technique: One view of the chest Comparison: 07/30/17 Findings: The heart is enlarged but stable in size. Questionable mild interstitial edema. There is no large pleural effusion. No definite pneumothorax. No definite focal consolidation. No acute osseous abnormalities seen. Impression: Cardiomegaly. Question mild interstitial edema. No new focal consolidation.
== END 2017-08-24 20:52 | disposition home or self-care (01) ==
LOC: EMR 19:20
DX: J45.909 Unspecified asthma, uncomplicated (principal); E11.9 Type 2 diabetes mellitus without complications; I10 Essential (primary) hypertension
CPT/HCPCS: 71010; 94640; 94664; 99284

== ENCOUNTER 2017-09-08 08:42 | Inpatient (IN) | payer MEDICAID ==
[~2017-09-08] VITALS: Ht 162.6 cm; Wt 88.5 kg
[2017-09-08 09:26] VITALS: BP 146/79
[2017-09-08] MEDS ORDERED: Ipratropium 0.02% Inh Soln 2.5ml UD HHN ONE (09:30)
[2017-09-08] MEDS ORDERED: Solu-MEDROL 125mg Inj IVP ONE (09:30)
[2017-09-08 09:46] LABS: ABG PCO2 30.8 mmHg (35.0-45.0)
[2017-09-08 09:47] LABS: ABG ALLEN TEST POSITIVE; ABG BASE EXCESS -2.2
[2017-09-08] MEDS: Albuterol ud Inhalation HHN SCH ×2 (09:57→10:09)
[2017-09-08 10:03] LABS: MEAN CORPUSCULAR HEMOGLOBIN 30.2 PG (27.0-31.0); MEAN CORPUSCULAR HGB CONC 30.5 G/DL (32.0-36.0); MEAN CORPUSCULAR VOLUME 99 FL (80-99); MEAN PLATELET VOLUME 6.5 FL (6.5-10.1); PLATELET COUNT 271 K/UL (150-450); RED CELL DISTRIBUTION WIDTH 15.6 % (11.6-14.8)
[2017-09-08 10:04] LABS: WHITE BLOOD COUNT 23.3 K/UL (4.8-10.8)
[2017-09-08 10:05] LABS: APPEARANCE,URINE CLEAR; KETONES,URINE NEGATIVE (NEGATIVE); LEUKOCYTE ESTERASE ,URINE 2+ (NEGATIVE); NITRITE,URINE POSITIVE (NEGATIVE); PH,URINE 5 (4.5-8.0); PROTEIN,URINE 3+ (NEGATIVE); UROBILINOGEN,URINE 8 MG/DL (0.0-1.0)
--- NOTE | 2017-09-08 10:05 | Emergency Room Report ---
History of Present Illness General Chief Complaint: Upper Respiratory Illness Source: Patient Present Illness HPI 61-year-old female, history of COPD, current smoker, p/w cough for 4 days. Pt states cough is productive, with clear non bloody sputum. + SOB at rest and on exertion. Denies fever chills or chest pain. Denies runny nose or myalgias. No sick contacts or recent travel. Patient states that she has been using her inhaler twice a day, minimal relief, states that her living situation is not good right now as she cannot get any rest as her niece has a new baby that keeps her up all night Allergies: Coded Allergies: No Known Allergies (Unverified , 01/02/15) Patient History Past Medical History: see triage record Past Surgical History: none Pertinent Family History: none Now: No Reviewed Nursing Documentation: PMH: Agreed, PSxH: Agreed Nursing Documentation-PMH Past Medical History: No History, Except For Hx Cardiac Problems: No Hx Hypertension: Yes Hx Pacemaker: No Hx Asthma: Yes - Bronchitis Hx COPD: No Hx Diabetes: Yes Hx Cancer: No Hx Gastrointestinal Problems: No Hx Dialysis: No Hx Neurological Problems: No Hx Cerebrovascular Accident: No Hx Seizures: No Review of Systems All Other Systems: negative except mentioned in HPI Physical Exam Vital Signs Date Time Temp Pulse Resp B/P (MAP) Pulse Ox O2 Delivery O2 Flow Rate FiO2 09/08/17 08:44 97.7 115 30 146/79 91 Room Air Sp02 EP Interpretation: reviewed, normal General Appearance: alert, GCS 15, moderate distress, other - sob but speaking in complete sentences Head: normocephalic, atraumatic Eyes: bilateral eye normal inspection, bilateral eye PERRL, bilateral eye EOMI ENT: normal ENT inspection, normal pharynx, normal voice, moist mucus membranes Neck: normal inspection, full range of motion, supple Respiratory: other - +tachypneic, wheezing b/l Cardiovascular #1: normal inspection, regular rate, rhythm, normal capillary refill Cardiovascular #2: 2+ radial (R), 2+ radial (L) Gastrointestinal: normal inspection, non tender, soft, non-distended, no guarding Musculoskeletal: normal inspection, back normal, normal range of motion, non- tender Neurologic: normal inspection, alert, oriented x3, responsive, motor strength/ tone normal, sensory intact, normal gait, speech normal Psychiatric: normal inspection, judgement/insight normal, memory normal Skin: normal inspection, normal color, no rash, warm/dry, well hydrated, normal turgor Procedures Critical Care Time Critical Care Time 40 minutes of CC time 61-year-old female, with COPD exacerbation VS: Tachycardia, tachypnea, hypoxic = PLAN: IV access, labs, lactate, troponin, Blood/Urine Cx, Abx, IVF Anticipate admission to Tele vs. ERIN CC time also includes review of labs, review of EMR, discussion with family and paperwork from SNF, d/w hospitalist CC could include dosing of pressors, additional Abx CC time does not include procedures Medical Decision Making Diagnostic Impression: Primary Impression: COPD exacerbation Additional Impressions: UTI (urinary tract infection) Severe sepsis ER Course 61-year-old female with pmhx of COPD p/w SOB for 4-5 days. DDX: COPD exacerbation, ACS, pneumonia Plan: IV access, cash posting specialist, O2 nasal cannula, EKG, CXR obtain basic labs including blood gas, troponin, Duonebs, steroids ER Course: Patient's respiratory status has been closely monitored in the ED. Patient has been treated with combivent x 3, steroids, antibiotics. Repeat lung auscultation reveals persistent wheezing. Patient with UTI on lab work, Levaquin was given both to cover both pneumonia and UTI Sepsis Re-examination Time: 11:31am VS: Temp 98 HR 100 BP 146/79 RR 20 CVS: RRR Respiratory: Mild wheezing bilaterally Peripheral pulses: 2+ radial Capillary refill: <2 seconds Skin exam: warm, dry, no rash, not mottled Disposition: Patient will be admitted to telemetry Patient requires close monitoring of respiratory status, and nebulizer treatment , IV abx D/W hospitalist.Dr Oscar who has accepted pt for admission Please note that this Emergency Department Report was dictated using [employer] video repairer technology software, occasionally this can lead to erroneous entry secondary to interpretation by the dictation equipment. EKG Diagnostic Results EP Interpretation: Yes Rate: Tachycardic Rhythm: NSR ST Segments: No acute ST-T changes ASA given to patient: no Rhythm Strip EP Interpretation: Yes Rate: 100 Rhythm: NSR, no PVCs, no ectopy Chest X-ray CXR: Ordered: Yes 1 view Indication: Shortness of breath EP interpretation: Yes Interpretation: Cardiomegaly, mild interstitial fluid, cannot rule out underlying infiltrate Impression: Cardiomegaly, mild interstitial fluid Electronically signed by Christian Weeks MD Laboratory Tests Test 09/08/17 09:28 09/08/17 09:50 09/08/17 10:05 Arterial Blood pH 7.440 (7.350-7.450) Arterial Blood Partial Pressure CO2 30.8 mmHg (35.0-45.0) L Arterial Blood Partial Pressure O2 70.8 mmHg (75.0-100.0) L Arterial Blood HCO3 20.7 mmol/L (22.0-26.0) L Arterial Blood Oxygen Saturation 94.0 % (92.0-98.0) Arterial Blood Base Excess -2.2 [place] Test Positive White Blood Count 23.3 K/UL (4.8-10.8) *H Red Blood Count 5.00 M/UL (4.20-5.40) Hemoglobin 15.1 G/DL (12.0-16.0) Hematocrit 49.4 % (37.0-47.0) H Mean Corpuscular Volume 99 FL (80-99) Mean Corpuscular Hemoglobin 30.2 PG (27.0-31.0) Mean Corpuscular Hemoglobin Concent 30.5 G/DL (32.0-36.0) L Red Cell Distribution Width 15.6 % (11.6-14.8) H Platelet Count 271 K/UL (150-450) Mean Platelet Volume 6.5 FL (6.5-10.1) Neutrophils (%) (Auto) % (45.0-75.0) Lymphocytes (%) (Auto) % (20.0-45.0) Monocytes (%) (Auto) % (1.0-10.0) Eosinophils (%) (Auto) % (0.0-3.0) Basophils (%) (Auto) % (0.0-2.0) Differential Total Cells Counted 100 Neutrophils % (Manual) 86 % (45-75) H Lymphocytes % (Manual) 3 % (20-45) L Monocytes % (Manual) 8 % (1-10) Eosinophils % (Manual) 0 % (0-3) Basophils % (Manual) 0 % (0-2) Band Neutrophils 3 % (0-8) Platelet Estimate Adequate Platelet Morphology Normal Hypochromasia 1+ Anisocytosis 1+ Urine Color Yellow Urine Appearance Clear Urine pH 5 (4.5-8.0) Urine Specific [place] 1.020 (1.005-1.035) Urine Protein 3+ (NEGATIVE) H Urine Glucose (UA) Negative (NEGATIVE) Urine Ketones Negative (NEGATIVE) Urine Occult Blood 3+ (NEGATIVE) H Urine Nitrite Positive (NEGATIVE) H Urine Bilirubin 1+ (NEGATIVE) H Urine Ictotest Negative Urine Urobilinogen 8 MG/DL (0.0-1.0) H Urine Leukocyte Esterase 2+ (NEGATIVE) H Urine RBC 2-4 /HPF (0 - 2) H Urine WBC 10-15 /HPF (0 - 2) H Urine Squamous Epithelial Cells Few /LPF (NONE/OCC) Urine Bacteria Few /HPF (NONE) Sodium Level 143 MMOL/L (136-145) Potassium Level 4.1 MMOL/L (3.5-5.1) Chloride Level 112 MMOL/L (98-107) H Carbon Dioxide Level 21 MMOL/L (21-32) Anion Gap 10 mmol/L (5-15) Blood Urea Nitrogen 10 mg/dL (7-18) Creatinine 0.7 MG/DL (0.55-1.30) Estimate Glomerular Filtration Rate > 60 mL/min (>60) Glucose Level 136 MG/DL (74-106) H Calcium Level 5.6 MG/DL (8.5-10.1) *L Total Bilirubin 1.3 MG/DL (0.2-1.0) H Direct Bilirubin 0.2 MG/DL (0.0-0.3) Aspartate Amino Transferase (AST) 34 U/L (15-37) Alanine Aminotransferase (ALT) 15 U/L (12-78) Alkaline Phosphatase 89 U/L (46-116) Pro-B-Type Natriuretic Peptide 6499 pg/mL (0-125) H Total Protein 5.8 G/DL (6.4-8.2) L Albumin 1.7 G/DL (3.4-5.0) L Globulin 4.1 g/dL Albumin/Globulin Ratio 0.4 (1.0-2.7) L Lactic Acid Level 2.40 mmol/L (0.66-2.22) H Last Vital Signs Date Time Temp Pulse Resp B/P (MAP) Pulse Ox O2 Delivery O2 Flow Rate FiO2 09/08/17 09:26 98.0 25 146/79 94 Room Air 09/08/17 09:07 108 Disposition: ADMITTED INPATIENT Condition: Serious Referrals: NOT CHOSEN IPA/,REFERRING (PCP) Christian Weeks M.D. Sep 08, 2017 10:05
[2017-09-08 10:15] LABS: BACTERIA,URINE FEW /HPF; ICTOTEST NEGATIVE; SQUAMOUS EPITHELIAL CELL,UR FEW /LPF (NONE/OCC)
[2017-09-08 10:21] LABS: ALANINE AMINOTRANSFERASE 15 U/L (12-78); ALBUMIN/GLOBULIN RATIO 0.4 (1.0-2.7); ANION GAP 10 mmol/L (5-15); ASPARTATE AMINO TRANSFERASE 34 U/L (15-37); CARBON DIOXIDE 21 MMOL/L (21-32); CHLORIDE 112 MMOL/L (98-107); CREATININE 0.7 MG/DL (0.55-1.30); GLOMERULAR FILTRATION RATE > 60 mL/min (>60); POTASSIUM 4.1 MMOL/L (3.5-5.1); SODIUM 143 MMOL/L (136-145); TOTAL PROTEIN 5.8 G/DL (6.4-8.2)
[2017-09-08 10:23] LABS: CALCIUM 5.6 MG/DL (8.5-10.1)
[2017-09-08 10:24] LABS: BILIRUBIN,DIRECT 0.2 MG/DL (0.0-0.3)
[2017-09-08 10:25] LABS: ANISOCYTOSIS 1+; BAND NEUTROPHILS % (MANUAL) 3 % (0-8); BASOPHILS % (MANUAL) 0 % (0-2); EOSINOPHILS % (MANUAL) 0 % (0-3); HYPOCHROMASIA 1+; LYMPHOCYTES % (MANUAL) 3 % (20-45); NEUTROPHILS % (MANUAL) 86 % (45-75); PLATELET ESTIMATE ADEQUATE; PLATELET MORPHOLOGY NORMAL; TOTAL CELLS COUNTED 100
[2017-09-08 10:30] VITALS: BP 122/79
[2017-09-08 11:00] LABS: REFLEX LACTIC ACID YES OR NO YES
[2017-09-08 11:38] VITALS: BP 140/87
[2017-09-08] MEDS ORDERED: Calcium Gluconate 1gm/10ml vial IVP ONE (12:45)
[2017-09-08] MEDS ORDERED: Albuterol/Ipratropium 3ml neb HHN PRN (13:00)
[2017-09-08 13:02] VITALS: BP 141/88
--- NOTE | 2017-09-08 13:37 | Nephrology Progress Note ---
Assessment/Plan Problem List: (1) Chest pain (2) ACS (acute coronary syndrome) (3) Leukocytosis (4) HTN (hypertension) (5) CHF (congestive heart failure) (6) Anxiety (7) UTI (urinary tract infection) (8) COPD exacerbation (9) Severe sepsis (10) Diabetes mellitus Plan H&P dictated # [id number] Subjective Constitutional: Denies: no symptoms, chills, diaphoresis, fever, malaise, weakness, other HEENT: Denies: no symptoms, eye pain, blurred vision, tearing, double vision, ear pain, ear discharge, nose pain, nose congestion, throat pain, throat swelling, mouth pain, mouth swelling, other Genitourinary: Denies: no symptoms, burning, discharge, frequency, flank pain, hematuria, incontinence, pain, urgency, other Neurologic/Psychiatric: Denies: no symptoms, anxiety, depressed, emotional problems, headache, numbness, paresthesia, pre-existing deficit, seizure, tingling, tremors, weakness, other Objective Objective Last 24 Hour Vital Signs Date Time Temp Pulse Resp B/P (MAP) Pulse Ox O2 Delivery O2 Flow Rate FiO2 09/08/17 13:02 105 25 141/88 95 Nasal Cannula 2.0 09/08/17 11:38 98.0 106 22 140/87 94 Nasal Cannula 2.0 28 09/08/17 10:30 98.0 94 24 122/79 95 Nasal Cannula 2.0 28 09/08/17 10:12 110 26 99 Nasal Cannula 2.0 28 09/08/17 10:00 115 24 Nasal Cannula 2.0 28 09/08/17 10:00 115 24 93 Nasal Cannula 2.0 28 09/08/17 09:26 98.0 25 146/79 94 Room Air 09/08/17 09:07 108 25 Room Air 09/08/17 08:44 97.7 115 30 146/79 91 Room Air Laboratory Tests 09/08/17 09:28: Arterial Blood pH 7.440, Arterial Blood Partial Pressure CO2 30.8L, Arterial Blood Partial Pressure O2 70.8L, Arterial Blood HCO3 20.7L, Arterial Blood Oxygen Saturation 94.0, Arterial Blood Base Excess -2.2, Tobias Test Positive 09/08/17 09:50: White Blood Count 23.3*H, Red Blood Count 5.00, Hemoglobin 15.1, Hematocrit 49.4H, Mean Corpuscular Volume 99, Mean Corpuscular Hemoglobin 30.2, Mean Corpuscular Hemoglobin Concent 30.5L, Red Cell Distribution Width 15.6H, Platelet Count 271, Mean Platelet Volume 6.5, Neutrophils (%) (Auto) , Lymphocytes (%) (Auto) , Monocytes (%) (Auto) , Eosinophils (%) (Auto) , Basophils (%) (Auto) , Differential Total Cells Counted 100, Neutrophils % ( Manual) 86H, Lymphocytes % (Manual) 3L, Monocytes % (Manual) 8, Eosinophils % ( Manual) 0, Basophils % (Manual) 0, Band Neutrophils 3, Platelet Estimate Adequate, Platelet Morphology Normal, Hypochromasia 1+, Anisocytosis 1+, Urine Color Yellow, Urine Appearance Clear, Urine pH 5, Urine Specific [place] 1.020, Urine Protein 3+H, Urine Glucose (UA) Negative, Urine Ketones Negative, Urine Occult Blood 3+H, Urine Nitrite PositiveH, Urine Bilirubin 1+H, Urine Ictotest Negative, Urine Urobilinogen 8H, Urine Leukocyte Esterase 2+H, Urine RBC 2-4H, Urine WBC 10-15H, Urine Squamous Epithelial Cells Few, Urine Bacteria Few, Sodium Level 143, Potassium Level 4.1, Chloride Level 112H, Carbon Dioxide Level 21, Anion Gap 10, Blood Urea Nitrogen 10, Creatinine 0.7, Estimat Glomerular Filtration Rate > 60, Glucose Level 136H, Calcium Level 5.6*L, Total Bilirubin 1.3H, Direct Bilirubin 0.2, Aspartate Amino Transf (AST/SGOT) 34, Alanine Aminotransferase (ALT/SGPT) 15, Alkaline Phosphatase 89, Pro-B-Type Natriuretic Peptide 6499H, Total Protein 5.8L, Albumin 1.7L, Globulin 4.1, Albumin/Globulin Ratio 0.4L 09/08/17 10:05: Lactic Acid Level 2.40H 09/08/17 11:54: Lactic Acid Level 1.80 Height (Feet): 5 Height (Inches): 4.00 Weight (Pounds): 180 General Appearance: mild distress EENT: normal ENT inspection Neck: normal alignment Cardiovascular: normal rate Respiratory/Chest: decreased breath sounds Abdomen: non tender, soft, no organomegaly Extremities: non-tender, trace edema Neurologic: alert, oriented x 3, responsive, normal mood/affect Pao Healy N.P. Sep 08, 2017 13:37
--- NOTE | 2017-09-08 15:12 | Infectious Diseases Prog Note ---
Assessment/Plan Problems: (1) Pneumonia Assessment & Plan: will send sputum culture and start vancomycin with cefepime empirically (2) UTI (urinary tract infection) Assessment & Plan: will send urine culture and start cefepime empirically (3) COPD exacerbation Assessment & Plan: continue antibiotics, inhalers and oxygen as needed (4) Severe sepsis Assessment & Plan: due to the above, will send blood culture and start vancomycin with cefepime (5) Diabetes mellitus Assessment & Plan: recommend tight glycemic control to keep blood glucose between 80-120 Subjective Allergies: Coded Allergies: No Known Allergies (Unverified , 01/02/15) Objective Vital Signs Last 24 Hour Vital Signs Date Time Temp Pulse Resp B/P (MAP) Pulse Ox O2 Delivery O2 Flow Rate FiO2 09/08/17 13:20 98.0 105 25 141/88 95 Nasal Cannula 2.0 09/08/17 13:02 105 25 141/88 95 Nasal Cannula 2.0 09/08/17 11:38 98.0 106 22 140/87 94 Nasal Cannula 2.0 28 09/08/17 10:30 98.0 94 24 122/79 95 Nasal Cannula 2.0 28 09/08/17 10:12 110 26 99 Nasal Cannula 2.0 28 09/08/17 10:00 115 24 Nasal Cannula 2.0 28 09/08/17 10:00 115 24 93 Nasal Cannula 2.0 28 09/08/17 09:26 98.0 25 146/79 94 Room Air 09/08/17 09:07 108 25 Room Air 09/08/17 08:44 97.7 115 30 146/79 91 Room Air Height (Feet): 5 Height (Inches): 4.00 Weight (Pounds): 180 Laboratory Tests Test 09/08/17 09:28 09/08/17 09:50 09/08/17 10:05 09/08/17 11:54 Arterial Blood pH 7.440 (7.350-7.450) Arterial Blood Partial Pressure CO2 30.8 mmHg (35.0-45.0) L Arterial Blood Partial Pressure O2 70.8 mmHg (75.0-100.0) L Arterial Blood HCO3 20.7 mmol/L (22.0-26.0) L Arterial Blood Oxygen Saturation 94.0 % (92.0-98.0) Arterial Blood Base Excess -2.2 [place] Test Positive White Blood Count 23.3 K/UL (4.8-10.8) *H Red Blood Count 5.00 M/UL (4.20-5.40) Hemoglobin 15.1 G/DL (12.0-16.0) Hematocrit 49.4 % (37.0-47.0) H Mean Corpuscular Volume 99 FL (80-99) Mean Corpuscular Hemoglobin 30.2 PG (27.0-31.0) Mean Corpuscular Hemoglobin Concent 30.5 G/DL (32.0-36.0) L Red Cell Distribution Width 15.6 % (11.6-14.8) H Platelet Count 271 K/UL (150-450) Mean Platelet Volume 6.5 FL (6.5-10.1) Neutrophils (%) (Auto) % (45.0-75.0) Lymphocytes (%) (Auto) % (20.0-45.0) Monocytes (%) (Auto) % (1.0-10.0) Eosinophils (%) (Auto) % (0.0-3.0) Basophils (%) (Auto) % (0.0-2.0) Differential Total Cells Counted 100 Neutrophils % (Manual) 86 % (45-75) H Lymphocytes % (Manual) 3 % (20-45) L Monocytes % (Manual) 8 % (1-10) Eosinophils % (Manual) 0 % (0-3) Basophils % (Manual) 0 % (0-2) Band Neutrophils 3 % (0-8) Platelet Estimate Adequate Platelet Morphology Normal Hypochromasia 1+ Anisocytosis 1+ Urine Color Yellow Urine Appearance Clear Urine pH 5 (4.5-8.0) Urine Specific [place] 1.020 (1.005-1.035) Urine Protein 3+ (NEGATIVE) H Urine Glucose (UA) Negative (NEGATIVE) Urine Ketones Negative (NEGATIVE) Urine Occult Blood 3+ (NEGATIVE) H Urine Nitrite Positive (NEGATIVE) H Urine Bilirubin 1+ (NEGATIVE) H Urine Ictotest Negative Urine Urobilinogen 8 MG/DL (0.0-1.0) H Urine Leukocyte Esterase 2+ (NEGATIVE) H Urine RBC 2-4 /HPF (0 - 2) H Urine WBC 10-15 /HPF (0 - 2) H Urine Squamous Epithelial Cells Few /LPF (NONE/OCC) Urine Bacteria Few /HPF (NONE) Sodium Level 143 MMOL/L (136-145) Potassium Level 4.1 MMOL/L (3.5-5.1) Chloride Level 112 MMOL/L (98-107) H Carbon Dioxide Level 21 MMOL/L (21-32) Anion Gap 10 mmol/L (5-15) Blood Urea Nitrogen 10 mg/dL (7-18) Creatinine 0.7 MG/DL (0.55-1.30) Estimat Glomerular Filtration Rate > 60 mL/min (>60) Glucose Level 136 MG/DL (74-106) H Calcium Level 5.6 MG/DL (8.5-10.1) *L Total Bilirubin 1.3 MG/DL (0.2-1.0) H Direct Bilirubin 0.2 MG/DL (0.0-0.3) Aspartate Amino Transf (AST/SGOT) 34 U/L (15-37) Alanine Aminotransferase (ALT/SGPT) 15 U/L (12-78) Alkaline Phosphatase 89 U/L (46-116) Pro-B-Type Natriuretic Peptide 6499 pg/mL (0-125) H Total Protein 5.8 G/DL (6.4-8.2) L Albumin 1.7 G/DL (3.4-5.0) L Globulin 4.1 g/dL Albumin/Globulin Ratio 0.4 (1.0-2.7) L Lactic Acid Level 2.40 mmol/L (0.66-2.22) H 1.80 mmol/L (0.66-2.22) Current Medications Medications (Trade) Dose Ordered Sig/Debbie Route PRN Reason Start Time Stop Time Status Last Admin Dose Admin Acetaminophen (Tylenol) 650 mg Q4H PRN ORAL Mild Pain (Pain Scale 1-3) 09/08/17 13:00 10/08/17 12:59 Albuterol/ Ipratropium (Albuterol/ Ipratropium) 3 ml Q2H PRN HHN Shortness of Breath 09/08/17 13:00 09/13/17 12:59 Albuterol/ Ipratropium (Albuterol/ Ipratropium) 3 ml Q4HRT HHN 09/08/17 14:00 09/13/17 13:59 Aspirin (ASA) 81 mg DAILY ORAL 09/09/17 09:00 10/09/17 08:59 Calcium Carbonate (Calcium Carbonate) 650 mg THREE TIMES A DAY ORAL 09/08/17 18:00 10/08/17 17:59 Dextrose (Dextrose 50%) STAT PRN IV Hypoglycemia 09/08/17 13:00 10/08/17 12:59 Dextrose (Dextrose 50%) STAT PRN IV Hypoglycemia 09/08/17 13:15 10/08/17 13:14 Heparin Sodium (Porcine) (Heparin 5000 units/ml) 5,000 units EVERY 12 HOURS SUBQ 09/08/17 21:00 10/08/17 20:59 Insulin Aspart (NovoLOG) BEFORE MEALS AND HS SUBQ 09/08/17 16:30 10/08/17 16:29 Ondansetron HCl (Zofran) 4 mg Q6H PRN IVP Nausea & Vomiting 09/08/17 13:00 10/08/17 12:59 Pantoprazole (Protonix) 40 mg DAILY ORAL 09/09/17 09:00 10/09/17 08:59 Billy Roblero M.D. Sep 08, 2017 15:12
[2017-09-08] MEDS: Albuterol/Ipratropium 3ml neb HHN SCH ×3 (15:40→23:48)
--- NOTE | 2017-09-08 16:21 | Diagnostic Imaging Report ---
Indication: Shortness of breath Technique: XRAY Chest 1v Comparison: 08/24/2017 Findings: Stable cardiomegaly. There is persistent interstitial opacification/edema, worsened compared to the prior exam. There is patchy, predominantly perihilar airspace opacities. No large pleural effusion. No pneumothorax. No acute osseous abnormality seen. Impression: Cardiomegaly and interstitial edema with patchy perihilar airspace opacities is likely representing areas of alveolar edema. Superimposed pneumonia should be excluded clinically.
[2017-09-08] MEDS ORDERED: Vancomycin 1.5 GM/D5W 250ML IVPB ONE (17:00)
--- NOTE | 2017-09-08 17:01 | HX and Phyl Repo 2 Sig ---
DATE OF ADMISSION: 09/08/2017 INTERNAL MEDICINE HISTORY AND PHYSICAL HISTORY OF PRESENT ILLNESS: The patient is a 61-year-old female with a past medical history significant for diabetes type 2, hypertension, and chronic obstructive pulmonary disease, who presented to the emergency room with worsening shortness of breath. According to the patient about three days ago, she started experiencing some shortness of breath, which worsened and was only relieved with rest. She stated that she had to use the inhaler more often than usual, but did not relieve her shortness of breath, which prompted her visit to the emergency room. She also complains about some left-sided chest pain, which is worse with deep breathing. She denies any fever or chills. She stated that she had coughed up sputum, which is whitish in color. She was admitted about a month ago according to her at this hospital for the same problem and she was asked to see a doctor outpatient, but she has not seen anybody since then. She stated that she stopped taking her blood pressure medication because she was told that her blood pressure is no longer high. She is lying in bed at this time in no apparent distress. PAST MEDICAL HISTORY: Significant for diabetes, hypertension, and chronic obstructive pulmonary disease. MEDICATIONS: Albuterol handheld inhaler 2 puffs q.6 hours p.r.n., promethazine with codeine 5 mL p.o. q.6 hours p.r.n., metformin 850 mg p.o. b.i.d., and prednisone 20 mg p.o. daily. ALLERGIES: She has no known allergies. SOCIAL HISTORY: She stated that she lives at home with her sister. She is a current every day smoker. Denies illicit drug use. Denies alcohol use as well. REVIEW OF SYSTEMS: A full 12-point review of system was reviewed with the patient and positives as stated in the history of present illness. PHYSICAL EXAMINATION: GENERAL: This is an obese female, in no apparent distress. VITAL SIGNS: Blood pressure 141/88, heart rate is 105, respiratory rate 25, temp is 98.0, and O2 sat is 95% on 2 liters. HEENT: Head is normocephalic and atraumatic. Pupils are equal, round, and reactive to light and accommodation. NECK: Supple. No jugular venous distention noted. LUNGS: Diminished bilaterally. No crackles or wheezing noted at this time. CARDIOVASCULAR: Regular. ABDOMEN: Soft, nontender, and nondistended. Positive bowel sounds in all 4 quadrants. EXTREMITIES: Trace edema noted in bilateral lower extremities. No cyanosis. No clubbing. NEUROLOGIC: The patient is awake, alert, and oriented x3 with no focal deficits. LABORATORY DATA: CBC, white count 23.3, hemoglobin 15.1, hematocrit 49.4, and a platelet count of 271,000. BMP, sodium 143, potassium 4.1, chloride 112, bicarbonate 21, BUN 10, and creatinine 0.7. Blood glucose is 136. Calcium is low at 5.6. Total bilirubin is 1.3. BNP is 6499. RADIOLOGIC FINDINGS: Chest x-ray done on 08/24/2017 shows the heart is enlarged, but stable in size, questionable mild interstitial edema. There is no large pleural effusion. No definite pneumothorax. No definite focal consolidation. No acute osseous abnormality is seen. Impression, cardiomegaly. Question mild interstitial edema. No new focal consolidation. ASSESSMENT: 1. Chronic obstructive pulmonary disease exacerbation. 2. Urinary tract infection. 3. Leukocytosis. 4. Chest pain, rule out acute coronary syndrome. 5. Hypertension. 6. Diabetes. 7. Shortness of breath. 8. Weakness, generalized. PLAN: We will obtain Cardiology, Pulmonary, and Infectious Disease consult on this patient. Check glycemic control. Start Accu-Chek before meals and at bedtime with low-dose insulin sliding scale coverage. Pain management as needed. DuoNeb q.4 hours and p.r.n. We will obtain cardiac enzyme levels. The patient is to remain on telemetry floor while admitted. We will add antitussives to treatment plan. Fluid restrictions as well. We will monitor electrolytes and correct as needed. We will continue home medications as well. We will follow up with recommendations from consults and monitor the patient's overall response to treatment. Nba Oscar M.D. Pao Healy DR: MATTIE JOB#: [id number] CC:
[2017-09-08] MEDS: NovoLOG Insulin Flexpen SUBQ SCH ×2 (17:43→21:00)
[2017-09-08] MEDS: Cefepime HCl 2 GM in D5W 55 ML IVPB SCH (17:51)
[2017-09-08] MEDS: Calcium Carbonate 650mg Tab ORAL SCH (18:22)
[2017-09-08] MEDS: Vancomycin 1250mg/D5W 250ml IVPB SCH ×2 (18:28→18:29)
[2017-09-08 20:00] VITALS: BP 134/87
[2017-09-08] MEDS: Heparin 5000 units/ml inj SUBQ SCH (21:00)
[2017-09-09] VITALS (7 sets, daily range): BP systolic 117–132; BP diastolic 65–88
[2017-09-09] MEDS: Albuterol/Ipratropium 3ml neb HHN SCH ×6 (03:41→22:57)
[2017-09-09] MEDS: NovoLOG Insulin Flexpen SUBQ SCH ×4 (06:38→23:02)
[2017-09-09 07:44] LABS: MEAN CORPUSCULAR HEMOGLOBIN 31.2 PG (27.0-31.0); MEAN CORPUSCULAR HGB CONC 31.2 G/DL (32.0-36.0); MEAN CORPUSCULAR VOLUME 100 FL (80-99); MEAN PLATELET VOLUME 6.1 FL (6.5-10.1); PLATELET COUNT 224 K/UL (150-450); RED BLOOD COUNT 4.79 M/UL (4.20-5.40); RED CELL DISTRIBUTION WIDTH 16.2 % (11.6-14.8)
[2017-09-09 08:08] LABS: WHITE BLOOD COUNT 27.2 K/UL (4.8-10.8)
[2017-09-09 08:28] LABS: ANION GAP 7 mmol/L (5-15); CARBON DIOXIDE 28 MMOL/L (21-32); CHLORIDE 105 MMOL/L (98-107); CHOLESTEROL 87 MG/DL (< 200); CHOLESTEROL/HDL RATIO 3.8 (3.3-4.4); CREATININE 1.1 MG/DL (0.55-1.30); GLOMERULAR FILTRATION RATE > 60 mL/min (>60); POTASSIUM 4.5 MMOL/L (3.5-5.1); SODIUM 140 MMOL/L (136-145); THYROID STIMULATING HORMONE 1.561 uiU/mL (0.358-3.740)
[2017-09-09 09:37] LABS: ABG PCO2 39.3 mmHg (35.0-45.0)
[2017-09-09 09:38] LABS: ABG BASE EXCESS -0.6
[2017-09-09] MEDS: Cefepime HCl 2 GM in D5W 55 ML IVPB SCH ×2 (09:53→21:17)
[2017-09-09] MEDS: Aspirin Baby 81mg ORAL SCH (09:53)
[2017-09-09] MEDS: Calcium Carbonate 650mg Tab ORAL SCH ×3 (09:53→17:28)
[2017-09-09] MEDS: Heparin 5000 units/ml inj SUBQ SCH ×2 (09:54→21:19)
[2017-09-09 10:04] LABS: BAND NEUTROPHILS % (MANUAL) 0 % (0-8); BASOPHILS % (MANUAL) 0 % (0-2); EOSINOPHILS % (MANUAL) 1 % (0-3); LYMPHOCYTES % (MANUAL) 3 % (20-45); NEUTROPHILS % (MANUAL) 92 % (45-75); PLATELET ESTIMATE ADEQUATE; PLATELET MORPHOLOGY NORMAL; TOTAL CELLS COUNTED 100
--- NOTE | 2017-09-09 12:18 | Consultation ---
Consult Note Consult Note PULMONARY CONSULTATION HISTORY OF PRESENT ILLNESS: The patient is a 61-year-old female with a past medical history significant for diabetes type 2, hypertension, and chronic obstructive pulmonary disease, who presented to the emergency room with worsening shortness of breath. According to the patient about three days ago, she started experiencing some shortness of breath, which worsened and was only relieved with rest. She stated that she had to use the inhaler more often than usual, but did not relieve her shortness of breath, which prompted her visit to the emergency room. She also complains about some left-sided chest pain, which is worse with deep breathing. She denies any fever or chills. She stated that she had coughed up sputum, which is whitish in color. She was admitted about a month ago according to her at this hospital for the same problem and she was asked to see a doctor outpatient, but she has not seen anybody since then. She stated that she stopped taking her blood pressure medication because she was told that her blood pressure is no longer high. She is lying in bed at this time in no apparent distress. PAST MEDICAL HISTORY: Significant for diabetes, hypertension, and chronic obstructive pulmonary disease. MEDICATIONS: Albuterol handheld inhaler 2 puffs q.6 hours p.r.n., promethazine with codeine 5 mL p.o. q.6 hours p.r.n., metformin 850 mg p.o. b.i.d., and prednisone 20 mg p.o. daily. ALLERGIES: She has no known allergies. SOCIAL HISTORY: She stated that she lives at home with her sister. She is a current every day smoker. Denies illicit drug use. Denies alcohol use as well. REVIEW OF SYSTEMS: A full 12-point review of system was reviewed with the patient and positives as stated in the history of present illness. PHYSICAL EXAMINATION: GENERAL: This is an obese female, in no apparent distress. VITAL SIGNS: Blood pressure 141/88, heart rate is 105, respiratory rate 25, temp is 98.0, and O2 sat is 95% on 2 liters. HEENT: Head is normocephalic and atraumatic. Pupils are equal, round, and reactive to light and accommodation. NECK: Supple. No jugular venous distention noted. LUNGS: Diminished bilaterally. No crackles or wheezing noted at this time. CARDIOVASCULAR: Regular. ABDOMEN: Soft, nontender, and nondistended. Positive bowel sounds in all 4 quadrants. EXTREMITIES: Trace edema noted in bilateral lower extremities. No cyanosis. No clubbing. NEUROLOGIC: The patient is awake, alert, and oriented x3 with no focal deficits. LABORATORY DATA: CBC, white count 23.3, hemoglobin 15.1, hematocrit 49.4, and a platelet count of 271,000. BMP, sodium 143, potassium 4.1, chloride 112, bicarbonate 21, BUN 10, and creatinine 0.7. Blood glucose is 136. Calcium is low at 5.6. Total bilirubin is 1.3. BNP is 6499. RADIOLOGIC FINDINGS: Chest x-ray done on 08/24/2017 shows the heart is enlarged, but stable in size, questionable mild interstitial edema. There is no large pleural effusion. No definite pneumothorax. No definite focal consolidation. No acute osseous abnormality is seen. Impression, cardiomegaly. Question mild interstitial edema. No new focal consolidation. ASSESSMENT: 1. Chronic obstructive pulmonary disease exacerbation. 2. Urinary tract infection. 3. Leukocytosis. 4. Chest pain, rule out acute coronary syndrome. 5. Hypertension. 6. Diabetes. 7. Shortness of breath. 8. Weakness, generalized. PLAN: Start DuoNeb q.4 hours and p.r.n. The patient is to remain on telemetry floor while admitted. Start steroids and antibiotics. O2 Teofilo Aparicio Omar Syed MD Sep 09, 2017 12:18
--- NOTE | 2017-09-09 13:24 | Infectious Diseases Prog Note ---
Assessment/Plan Problems: (1) Pneumonia Assessment & Plan: will add Zithromax to cover atypical organisms , pending sputum culture , continue vancomycin with cefepime empirically (2) UTI (urinary tract infection) Assessment & Plan: on cefepime empirically pending culture result (3) COPD exacerbation Assessment & Plan: continue antibiotics, inhalers and oxygen as needed (4) Severe sepsis Assessment & Plan: due to the above, with elevated WBC today , suspect due to steroids, will continue vancomycin with cefepime for now pending culture results , recommend to taper steroids (5) Diabetes mellitus Assessment & Plan: recommend tight glycemic control to keep blood glucose between 80-120 Subjective Constitutional: Reports: fatigue HEENT: Reports: no symptoms Respiratory: Reports: productive cough, other - wheezing Breasts: Reports: no symptoms Cardiovascular: Reports: no symptoms Gastrointestinal/Abdominal: Reports: no symptoms Genitourinary: Reports: no symptoms Neurologic: Reports: no symptoms Psychiatric: Reports: no symptoms Skin: Reports: no symptoms Endocrine: Reports: no symptoms Hematologic: Reports: no symptoms Musculoskeletal: Reports: no symptoms Allergies: Coded Allergies: No Known Allergies (Unverified , 01/02/15) Objective Vital Signs Last 24 Hour Vital Signs Date Time Temp Pulse Resp B/P (MAP) Pulse Ox O2 Delivery O2 Flow Rate FiO2 09/09/17 12:00 107 09/09/17 11:41 28 09/09/17 11:41 92 20 97 Nasal Cannula 2.0 09/09/17 11:28 90 18 95 Nasal Cannula 2.0 28 09/09/17 11:27 96.8 105 20 117/65 92 Nasal Cannula 2.0 09/09/17 08:00 103 09/09/17 07:06 92 20 Nasal Cannula 2.0 28 09/09/17 07:06 93 20 97 Nasal Cannula 2.0 28 09/09/17 07:06 28 09/09/17 06:56 92 18 94 Nasal Cannula 2.0 09/09/17 04:16 97.0 96 20 126/78 98 09/09/17 04:00 93 09/09/17 03:48 98 20 99 Nasal Cannula 2.0 28 09/09/17 03:42 28 09/09/17 03:41 98 20 99 Nasal Cannula 2.0 09/09/17 00:00 105 09/09/17 00:00 97.7 103 20 125/87 93 09/08/17 23:55 102 23 96 Nasal Cannula 2.0 28 09/08/17 23:50 28 09/08/17 23:50 102 23 96 Nasal Cannula 2.0 28 09/08/17 20:11 105 23 96 Nasal Cannula 2.0 28 09/08/17 20:05 103 23 95 Nasal Cannula 2.0 28 09/08/17 20:00 105 09/08/17 20:00 103 23 Nasal Cannula 2.0 28 09/08/17 20:00 97.7 110 20 134/87 95 Height (Feet): 5 Height (Inches): 4.00 Weight (Pounds): 180 General Appearance: WD/WN, no acute distress HEENT: normocephalic, atraumatic, anicteric, mucous membranes moist, PERRL, EOMI, pharynx normal, supple, no JVD Respiratory/Chest: chest wall non-tender, no respiratory distress, no accessory muscle use, decreased breath sounds, crackles/rales, expiratory wheezing, inspiratory wheezing Cardiovascular: normal peripheral pulses, normal rate, regular rhythm, no gallop/murmur, no JVD Abdomen: normal bowel sounds, soft, non tender, no organomegaly, non distended , no mass, no scars Extremities: no cyanosis, no clubbing Skin: no rash, no lesions, no ulcers Neurologic/Psychiatric: alert, oriented x 3, responsive Lymphatic: no neck adenopathy, no groin adenopathy Microbiology Date/Time Source Procedure Growth Status 09/08/17 10:15 Blood Blood Culture - Preliminary NO GROWTH AFTER 24 HOURS Resulted 09/08/17 10:15 Blood Blood Culture - Preliminary NO GROWTH AFTER 24 HOURS Resulted 09/08/17 09:50 Urine,Clean Catch Urine Culture - Preliminary NO GROWTH AFTER 24 HOURS Resulted Laboratory Tests Test 09/09/17 04:00 09/09/17 07:10 Arterial Blood pH 7.403 (7.350-7.450) Arterial Blood Partial Pressure CO2 39.3 mmHg (35.0-45.0) Arterial Blood Partial Pressure O2 75.0 mmHg (75.0-100.0) Arterial Blood HCO3 24.0 mmol/L (22.0-26.0) Arterial Blood Oxygen Saturation 94.6 % (92.0-98.0) Arterial Blood Base Excess -0.6 Tobias Test Pending White Blood Count 27.2 K/UL (4.8-10.8) *H Red Blood Count 4.79 M/UL (4.20-5.40) Hemoglobin 14.9 G/DL (12.0-16.0) Hematocrit 47.9 % (37.0-47.0) H Mean Corpuscular Volume 100 FL (80-99) H Mean Corpuscular Hemoglobin 31.2 PG (27.0-31.0) H Mean Corpuscular Hemoglobin Concent 31.2 G/DL (32.0-36.0) L Red Cell Distribution Width 16.2 % (11.6-14.8) H Platelet Count 224 K/UL (150-450) Mean Platelet Volume 6.1 FL (6.5-10.1) L Neutrophils (%) (Auto) % (45.0-75.0) Lymphocytes (%) (Auto) % (20.0-45.0) Monocytes (%) (Auto) % (1.0-10.0) Eosinophils (%) (Auto) % (0.0-3.0) Basophils (%) (Auto) % (0.0-2.0) Differential Total Cells Counted 100 Neutrophils % (Manual) 92 % (45-75) H Lymphocytes % (Manual) 3 % (20-45) L Monocytes % (Manual) 4 % (1-10) Eosinophils % (Manual) 1 % (0-3) Basophils % (Manual) 0 % (0-2) Band Neutrophils 0 % (0-8) Platelet Estimate Adequate Platelet Morphology Normal Red Blood Cell Morphology Normal Sodium Level 140 MMOL/L (136-145) Potassium Level 4.5 MMOL/L (3.5-5.1) Chloride Level 105 MMOL/L (98-107) Carbon Dioxide Level 28 MMOL/L (21-32) Anion Gap 7 mmol/L (5-15) Blood Urea Nitrogen 17 mg/dL (7-18) Creatinine 1.1 MG/DL (0.55-1.30) # Estimat Glomerular Filtration Rate > 60 mL/min (>60) Glucose Level 285 MG/DL (74-106) #H Hemoglobin A1c 6.8 % (4.3-6.0) H Calcium Level 8.0 MG/DL (8.5-10.1) #L Triglycerides Level 63 MG/DL (30-150) Cholesterol Level 87 MG/DL (< 200) LDL Cholesterol 54 mg/dL (<100) HDL Cholesterol 23 MG/DL (40-60) L Cholesterol/HDL Ratio 3.8 (3.3-4.4) Thyroid Stimulating Hormone (TSH) 1.561 uiU/mL (0.358-3.740) Current Medications Medications (Trade) Dose Ordered Sig/Debbie Route PRN Reason Start Time Stop Time Status Last Admin Dose Admin Acetaminophen (Tylenol) 650 mg Q4H PRN ORAL Mild Pain (Pain Scale 1-3) 09/08/17 13:00 10/08/17 12:59 09/09/17 00:03 Albuterol/ Ipratropium (Albuterol/ Ipratropium) 3 ml Q2H PRN HHN Shortness of Breath 09/08/17 13:00 09/13/17 12:59 Albuterol/ Ipratropium (Albuterol/ Ipratropium) 3 ml Q4HRT HHN 09/08/17 14:00 09/13/17 13:59 09/09/17 11:27 Aspirin (ASA) 81 mg DAILY ORAL 09/09/17 09:00 10/09/17 08:59 09/09/17 09:53 Calcium Carbonate (Calcium Carbonate) 650 mg THREE TIMES A DAY ORAL 09/08/17 18:00 10/08/17 17:59 09/09/17 12:01 Cefepime HCl 2 gm/ Dextrose 55 ml @ 110 mls/hr EVERY 12 HOURS IVPB 09/08/17 16:30 09/15/17 16:29 09/09/17 09:53 Dextrose (Dextrose 50%) STAT PRN IV Hypoglycemia 09/08/17 13:00 10/08/17 12:59 Dextrose (Dextrose 50%) STAT PRN IV Hypoglycemia 09/08/17 13:15 10/08/17 13:14 Heparin Sodium (Porcine) (Heparin 5000 units/ml) 5,000 units EVERY 12 HOURS SUBQ 09/08/17 21:00 10/08/17 20:59 09/09/17 09:54 Insulin Aspart (NovoLOG) BEFORE MEALS AND HS SUBQ 09/08/17 16:30 10/08/17 16:29 09/09/17 11:58 Methylprednisolone Sodium Succinate (Solu-MEDROL) 40 mg EVERY 6 HOURS IVP 09/09/17 18:00 10/09/17 17:59 Ondansetron HCl (Zofran) 4 mg Q6H PRN IVP Nausea & Vomiting 09/08/17 13:00 10/08/17 12:59 Pantoprazole (Protonix) 40 mg DAILY ORAL 09/09/17 09:00 10/09/17 08:59 09/09/17 09:52 Vancomycin HCl (Vanco rx to dose) 1 ea DAILY PRN MISC Per rx protocol 09/08/17 15:15 10/08/17 15:14 Vancomycin HCl/ Dextrose 250 ml @ 166.667 mls/hr Q12HR@0500,1700 IVPB 09/09/17 05:00 09/14/17 04:59 09/08/17 18:29 Billy Roblero M.D. Sep 09, 2017 13:24
[2017-09-09] MEDS: Azithromycin 250mg tab ORAL SCH (14:08)
[2017-09-09] MEDS: Solu-MEDROL 40mg Inj IVP SCH ×2 (17:28→23:26)
[2017-09-09] MEDS: Vancomycin 1250mg/D5W 250ml IVPB SCH (17:39)
--- NOTE | 2017-09-09 17:45 | Consultation ---
DATE OF CONSULTATION: 09/09/2017 INFECTIOUS DISEASES CONSULTATION CONSULTING PHYSICIAN: Billy Roblero M.D. REQUESTING PHYSICIAN: Nba Oscar M.D. REASON FOR CONSULTATION: Pneumonia, UTI with COPD exacerbation and sepsis in diabetic patient, recommendation for antibiotics treatment and management. HISTORY OF PRESENT ILLNESS: The patient is a 61-year-old female with history of COPD, diabetes, and bronchitis, presented to [facility] with worsening cough and shortness of breath. Her cough has been productive and sometimes tinged with blood. She also had significant wheezing and shortness of breath at rest and on exertion. Denied any chest pain, fever or chills, nausea or vomiting. Denied any sore throat or runny nose. No recent travel or sick contact. The patient has been using her inhalers at home twice a day with minimal relief, and she attributes it to her living situation. The patient was saturating 99% on room air in the emergency room. She was found to have significant leukocytosis with white count of 23.3. Urinalysis showed evidence of infection. Chest x-ray showed interstitial edema with patchy perihilar airspace opacity representing alveolar edema versus superimposed pneumonia. So, Infectious Diseases consultation was requested for further evaluation and management. PAST MEDICAL HISTORY: Significant for diabetes, COPD, and bronchitis. PAST SURGICAL HISTORY: Negative. MEDICATIONS: She received methylprednisolone in the emergency room and levofloxacin. ALLERGIES: She has no known drug allergy. SOCIAL HISTORY: The patient lives currently with her niece. She still currently a smoker, smokes half to one packet per day for many years. Denies using any drugs or alcohol. FAMILY HISTORY: Negative and noncontributory. REVIEW OF SYSTEMS: A 14-point system reviewed, all negative apart from the one I mentioned above in my H and P. PHYSICAL EXAMINATION: VITAL SIGNS: Temperature 97.7 degrees, pulse 103, respirations 23, blood pressure 134/87, and saturation 95% on 2 liters nasal cannula. GENERAL: A middle-aged female, obese, up in bed, awake, alert, coughing, and wheezing. HEENT: Normocephalic and atraumatic. Pupils are reactive to light. Moist oral mucosa. No exudate or thrush. NECK: Supple. No lymphadenopathy. LUNGS: She had diffuse wheezing and crackles with poor air entry to both lung velarde. CARDIOVASCULAR: She is tachycardic. S1 and S2 normal. No murmur. ABDOMEN: Soft, obese, nontender, and nondistended. Normal bowel sounds. No organomegaly. No ascites. EXTREMITIES: No edema or cyanosis. SKIN: No rash or hives. LABORATORY AND DIAGNOSTIC DATA: Labs showed white count of 23.3, hemoglobin of 15.1, and platelet count of 271,000. BUN of 10 and creatinine of 0.7. Calcium of 5.6. Urinalysis was positive for nitrite with bilirubin of +1, leukocyte esterase +2, and WBC of 10 to 15. Microbiology, blood culture x2 so far pending. Imaging, chest x-ray showed cardiomegaly and interstitial edema with patchy perihilar airspace opacities, likely representing area of valvular edema. Superimposed pneumonia should be excluded clinically. ASSESSMENT AND RECOMMENDATION: 1. Pneumonia complicated with sepsis. We will send sputum culture and start vancomycin and cefepime empiric coverage and add Zithromax to cover atypical organisms. 2. Urinary tract infection. We will send urine culture and start cefepime empiric coverage pending culture results. 3. Chronic obstructive pulmonary disease with exacerbation. Continue antibiotics, inhaler, and oxygen and consider steroid with tapered dose due to severe wheezing. 4. Severe sepsis due to the above. We will send blood culture and start vancomycin with cefepime empiric coverage. 5. Diabetes mellitus. Recommend tight glycemic control to keep blood glucose between 80 to 120. Thank you for the consult. Infectious Disease will continue to follow. Billy Roblero M.D. DR: Ryan JOB#: [id number] CC:
--- NOTE | 2017-09-09 23:05 | Nephrology Progress Note ---
Assessment/Plan Problem List: (1) COPD exacerbation (2) Chest pain (3) HTN (hypertension) (4) ACS (acute coronary syndrome) Plan Pulm following. Cardio consult. Pulm hygiene. MOnitor labs. Subjective Subjective episodes of VT noted. Objective Objective Last 24 Hour Vital Signs Date Time Temp Pulse Resp B/P (MAP) Pulse Ox O2 Delivery O2 Flow Rate FiO2 09/09/17 23:00 28 09/09/17 22:58 106 20 98 Nasal Cannula 2.0 28 09/09/17 20:00 97.0 114 20 126/82 97 09/09/17 19:23 114 22 99 Nasal Cannula 2.0 28 09/09/17 19:01 118 22 99 Nasal Cannula 2.0 28 09/09/17 19:01 28 09/09/17 18:56 118 22 Nasal Cannula 2.0 28 09/09/17 16:00 98.1 121 21 132/84 99 Nasal Cannula 2.0 09/09/17 16:00 114 09/09/17 15:45 93 20 98 Nasal Cannula 2.0 28 09/09/17 15:45 28 09/09/17 15:31 92 18 96 Nasal Cannula 2.0 28 09/09/17 12:00 107 09/09/17 12:00 97.2 108 21 119/88 97 Nasal Cannula 2.0 09/09/17 11:41 28 09/09/17 11:41 92 20 97 Nasal Cannula 2.0 28 09/09/17 11:28 90 18 95 Nasal Cannula 2.0 28 09/09/17 08:00 96.8 20 117/65 92 Nasal Cannula 2.0 09/09/17 08:00 103 09/09/17 07:06 92 20 Nasal Cannula 2.0 28 09/09/17 07:06 93 20 97 Nasal Cannula 2.0 28 09/09/17 07:06 28 09/09/17 06:56 92 18 94 Nasal Cannula 2.0 28 09/09/17 04:16 97.0 96 20 126/78 98 09/09/17 04:00 93 09/09/17 03:48 98 20 99 Nasal Cannula 2.0 28 09/09/17 03:42 28 09/09/17 03:41 98 20 99 Nasal Cannula 2.0 28 09/09/17 00:00 105 09/09/17 00:00 97.7 103 20 125/87 93 09/08/17 23:55 102 23 96 Nasal Cannula 2.0 28 09/08/17 23:50 28 09/08/17 23:50 102 23 96 Nasal Cannula 2.0 28 Intake and Output 09/08/17 09/09/17 19:00 07:00 Intake Total 240 ml Balance 240 ml Intake Oral 240 ml # Voids 2 Laboratory Tests 09/09/17 04:00: Arterial Blood pH 7.403, Arterial Blood Partial Pressure CO2 39.3, Arterial Blood Partial Pressure O2 75.0, Arterial Blood HCO3 24.0, Arterial Blood Oxygen Saturation 94.6, Arterial Blood Base Excess -0.6, Tobias Test [Pending] 09/09/17 07:10: White Blood Count 27.2*H, Red Blood Count 4.79, Hemoglobin 14.9, Hematocrit 47.9H, Mean Corpuscular Volume 100H, Mean Corpuscular Hemoglobin 31.2H, Mean Corpuscular Hemoglobin Concent 31.2L, Red Cell Distribution Width 16.2H, Platelet Count 224, Mean Platelet Volume 6.1L, Neutrophils (%) (Auto) , Lymphocytes (%) (Auto) , Monocytes (%) (Auto) , Eosinophils (%) (Auto) , Basophils (%) (Auto) , Differential Total Cells Counted 100, Neutrophils % ( Manual) 92H, Lymphocytes % (Manual) 3L, Monocytes % (Manual) 4, Eosinophils % ( Manual) 1, Basophils % (Manual) 0, Band Neutrophils 0, Platelet Estimate Adequate, Platelet Morphology Normal, Red Blood Cell Morphology Normal, Sodium Level 140, Potassium Level 4.5, Chloride Level 105, Carbon Dioxide Level 28, Anion Gap 7, Blood Urea Nitrogen 17, Creatinine 1.1#, Estimat Glomerular Filtration Rate > 60, Glucose Level 285#H, Hemoglobin A1c 6.8H, Calcium Level 8.0#L, Triglycerides Level 63, Cholesterol Level 87, LDL Cholesterol 54, HDL Cholesterol 23L, Cholesterol/HDL Ratio 3.8, Thyroid Stimulating Hormone (TSH) 1.561 09/09/17 16:15: Vancomycin Level Trough < 2.0L Height (Feet): 5 Height (Inches): 4.00 Weight (Pounds): 180 General Appearance: no apparent distress Cardiovascular: normal rate, regular rhythm Respiratory/Chest: decreased breath sounds Abdomen: non tender, soft MIRAHMADI,AMRITA Sep 09, 2017 23:05
[2017-09-10] VITALS: BP 124/96
[2017-09-10] MEDS: Albuterol/Ipratropium 3ml neb HHN SCH ×6 (03:14→23:00)
[2017-09-10 04:00] VITALS: BP 127/82
[2017-09-10] MEDS: Solu-MEDROL 40mg Inj IVP SCH ×4 (05:54→17:30)
[2017-09-10] MEDS: Vancomycin 1250mg/D5W 250ml IVPB SCH ×2 (05:59→17:28)
[2017-09-10] MEDS: NovoLOG Insulin Flexpen SUBQ SCH ×4 (07:17→21:08)
[2017-09-10 08:00] VITALS: BP 126/76
--- NOTE | 2017-09-10 08:43 | Pulmonology Progress Note ---
Assessment/Plan Assessment/Plan 1. Chronic obstructive pulmonary disease exacerbation. 2. Urinary tract infection. 3. Leukocytosis. 4. Chest pain, rule out acute coronary syndrome. 5. Hypertension. 6. Diabetes. 7. Shortness of breath. 8. Weakness, generalized. PLAN: Continue DuoNeb q.4 hours and p.r.n. Continue steroids and antibiotics. O2 Subjective Interval Events: None Constitutional: Reports: no symptoms HEENT: Repors: no symptoms Respiratory: Reports: no symptoms Cardiovascular: Reports: no symptoms Allergies: Coded Allergies: No Known Allergies (Unverified , 01/02/15) Objective Last 24 Hour Vital Signs Date Time Temp Pulse Resp B/P (MAP) Pulse Ox O2 Delivery O2 Flow Rate FiO2 09/10/17 08:10 96 20 98 Nasal Cannula 2.0 28 09/10/17 08:00 28 09/10/17 08:00 94 18 Nasal Cannula 2.0 28 09/10/17 08:00 94 18 99 Nasal Cannula 2.0 28 09/10/17 04:00 100 09/10/17 04:00 97.0 96 20 127/82 100 09/10/17 03:24 102 20 98 Nasal Cannula 2.0 28 09/10/17 03:16 102 20 98 Nasal Cannula 2.0 28 09/10/17 03:16 28 09/10/17 00:00 108 09/10/17 00:00 97.2 105 20 124/96 98 09/09/17 23:15 106 20 98 Nasal Cannula 2.0 28 09/09/17 23:00 28 09/09/17 22:58 106 20 98 Nasal Cannula 2.0 09/09/17 20:00 97.0 114 20 126/82 97 09/09/17 20:00 113 09/09/17 19:23 114 22 99 Nasal Cannula 2.0 28 09/09/17 19:01 118 22 99 Nasal Cannula 2.0 28 09/09/17 19:01 28 09/09/17 18:56 118 22 Nasal Cannula 2.0 28 09/09/17 16:00 98.1 121 21 132/84 99 Nasal Cannula 2.0 09/09/17 16:00 114 09/09/17 15:45 93 20 98 Nasal Cannula 2.0 28 09/09/17 15:45 28 09/09/17 15:31 92 18 96 Nasal Cannula 2.0 28 09/09/17 12:00 107 09/09/17 12:00 97.2 108 21 119/88 97 Nasal Cannula 2.0 09/09/17 11:41 28 09/09/17 11:41 92 20 97 Nasal Cannula 2.0 28 09/09/17 11:28 90 18 95 Nasal Cannula 2.0 28 Intake and Output 09/09/17 09/10/17 19:00 07:00 Intake Total 856.667 ml 120 ml Balance 856.667 ml 120 ml Intake Oral 580 ml 120 ml IV Total 276.667 ml # Voids 2 2 General Appearance: no acute distress HEENT: normocephalic Respiratory/Chest: chest wall non-tender, lungs clear Cardiovascular: normal peripheral pulses, normal rate Microbiology Date/Time Source Procedure Growth Status 09/08/17 10:15 Blood Blood Culture - Preliminary NO GROWTH AFTER 24 HOURS Resulted 09/08/17 10:15 Blood Blood Culture - Preliminary NO GROWTH AFTER 24 HOURS Resulted 09/08/17 09:50 Urine,Clean Catch Urine Culture - Preliminary NO GROWTH AFTER 24 HOURS Resulted Laboratory Tests 09/09/17 16:15: Vancomycin Level Trough < 2.0L Current Medications Medications (Trade) Dose Ordered Sig/Debbie Route PRN Reason Start Time Stop Time Status Last Admin Dose Admin Acetaminophen (Tylenol) 650 mg Q4H PRN ORAL Mild Pain (Pain Scale 1-3) 09/08/17 13:00 10/08/17 12:59 09/09/17 00:03 Albuterol/ Ipratropium (Albuterol/ Ipratropium) 3 ml Q2H PRN HHN Shortness of Breath 09/08/17 13:00 09/13/17 12:59 Albuterol/ Ipratropium (Albuterol/ Ipratropium) 3 ml Q4HRT HHN 09/08/17 14:00 09/13/17 13:59 09/10/17 08:02 Aspirin (ASA) 81 mg DAILY ORAL 09/09/17 09:00 10/09/17 08:59 09/09/17 09:53 Azithromycin (Zithromax) 250 mg DAILY ORAL 09/09/17 13:30 09/13/17 08:59 09/09/17 14:08 Calcium Carbonate (Calcium Carbonate) 650 mg THREE TIMES A DAY ORAL 09/08/17 18:00 10/08/17 17:59 09/09/17 17:28 Cefepime HCl 2 gm/ Dextrose 55 ml @ 110 mls/hr EVERY 12 HOURS IVPB 09/08/17 16:30 09/15/17 16:29 09/09/17 21:17 Dextrose (Dextrose 50%) STAT PRN IV Hypoglycemia 09/08/17 13:15 10/08/17 13:14 Heparin Sodium (Porcine) (Heparin 5000 units/ml) 5,000 units EVERY 12 HOURS SUBQ 09/08/17 21:00 10/08/17 20:59 09/09/17 21:19 Insulin Aspart (NovoLOG) BEFORE MEALS AND HS SUBQ 09/08/17 16:30 10/08/17 16:29 09/10/17 07:17 Methylprednisolone Sodium Succinate (Solu-MEDROL) 40 mg EVERY 6 HOURS IVP 09/09/17 18:00 10/09/17 17:59 09/10/17 05:57 Ondansetron HCl (Zofran) 4 mg Q6H PRN IVP Nausea & Vomiting 09/08/17 13:00 10/08/17 12:59 Pantoprazole (Protonix) 40 mg DAILY ORAL 09/09/17 09:00 10/09/17 08:59 09/09/17 09:52 Vancomycin HCl (Vanco rx to dose) 1 ea DAILY PRN MISC Per rx protocol 09/08/17 15:15 10/08/17 15:14 Vancomycin HCl/ Dextrose 250 ml @ 166.667 mls/hr Q12HR@0600,1800 IVPB 09/09/17 18:00 09/14/17 17:59 09/10/17 05:59 Larry Brody MD Sep 10, 2017 08:43
[2017-09-10] MEDS: Calcium Carbonate 650mg Tab ORAL SCH ×3 (09:13→17:29)
[2017-09-10] MEDS: Azithromycin 250mg tab ORAL SCH (09:13)
[2017-09-10] MEDS: Cefepime HCl 2 GM in D5W 55 ML IVPB SCH ×2 (09:13→21:04)
[2017-09-10] MEDS: Aspirin Baby 81mg ORAL SCH (09:13)
[2017-09-10] MEDS: Heparin 5000 units/ml inj SUBQ SCH (09:15)
[2017-09-10 12:00] VITALS: BP 117/72
--- NOTE | 2017-09-10 15:12 | Cardiology Report ---
APPROVED REPORT EKG Measurement Heart [id number] Sinus tachycardia with occasional premature ventricular complexes Right atrial enlargement Left axis deviation Pulmonary disease pattern Nonspecific T wave abnormality Abnormal ECG
[2017-09-10] MEDS ORDERED: NS 275ml ONE (15:47)
[2017-09-10 16:00] VITALS: BP 110/72
--- NOTE | 2017-09-10 17:10 | Infectious Diseases Prog Note ---
Assessment/Plan Problems: (1) Pneumonia Assessment & Plan: on Zithromax , vancomycin and cefepime , pending sputum culture (2) UTI (urinary tract infection) Assessment & Plan: on cefepime empirically pending culture result (3) COPD exacerbation Assessment & Plan: continue antibiotics, inhalers and oxygen as needed (4) Severe sepsis Assessment & Plan: due to the above, with elevated WBC today , suspect due to steroids, will continue vancomycin with cefepime for now pending culture results , recommend to taper steroids (5) Diabetes mellitus Assessment & Plan: recommend tight glycemic control to keep blood glucose between 80-120 (6) Left leg DVT Assessment & Plan: recommend anticoagulation , and to keep leg elevated while in bed Subjective Constitutional: Reports: no symptoms HEENT: Reports: no symptoms Respiratory: Reports: productive cough, other - wheezing Breasts: Reports: no symptoms Cardiovascular: Reports: no symptoms Gastrointestinal/Abdominal: Reports: no symptoms Genitourinary: Reports: no symptoms Neurologic: Reports: no symptoms Psychiatric: Reports: no symptoms Skin: Reports: no symptoms Endocrine: Reports: no symptoms Hematologic: Reports: no symptoms Musculoskeletal: Reports: pain Allergies: Coded Allergies: No Known Allergies (Unverified , 01/02/15) Objective Vital Signs Last 24 Hour Vital Signs Date Time Temp Pulse Resp B/P (MAP) Pulse Ox O2 Delivery O2 Flow Rate FiO2 09/10/17 16:00 98.2 99 22 110/72 99 Nasal Cannula 2.0 09/10/17 15:25 Nasal Cannula 09/10/17 15:25 Nasal Cannula 09/10/17 12:00 99 09/10/17 12:00 97.0 117 22 117/72 99 Nasal Cannula 2.0 09/10/17 11:58 90 20 98 Nasal Cannula 2.0 28 09/10/17 11:48 28 09/10/17 11:48 90 18 96 Nasal Cannula 2.0 09/10/17 08:10 96 20 98 Nasal Cannula 2.0 28 09/10/17 08:00 28 09/10/17 08:00 97.2 104 20 126/76 97 Nasal Cannula 2.0 09/10/17 08:00 94 18 Nasal Cannula 2.0 28 09/10/17 08:00 100 09/10/17 08:00 94 18 99 Nasal Cannula 2.0 09/10/17 04:00 100 09/10/17 04:00 97.0 96 20 127/82 100 09/10/17 03:24 102 20 98 Nasal Cannula 2.0 28 09/10/17 03:16 102 20 98 Nasal Cannula 2.0 28 09/10/17 03:16 28 09/10/17 00:00 108 09/10/17 00:00 97.2 105 20 124/96 98 09/09/17 23:15 106 20 98 Nasal Cannula 2.0 28 09/09/17 23:00 28 09/09/17 22:58 106 20 98 Nasal Cannula 2.0 28 09/09/17 20:00 97.0 114 20 126/82 97 09/09/17 20:00 113 09/09/17 19:23 114 22 99 Nasal Cannula 2.0 28 09/09/17 19:01 118 22 99 Nasal Cannula 2.0 28 09/09/17 19:01 28 09/09/17 18:56 118 22 Nasal Cannula 2.0 28 Height (Feet): 5 Height (Inches): 4.00 Weight (Pounds): 195 General Appearance: WD/WN, no acute distress HEENT: normocephalic, atraumatic, anicteric, mucous membranes moist, pharynx normal, supple Respiratory/Chest: chest wall non-tender, lungs clear, normal breath sounds, no respiratory distress, no accessory muscle use Cardiovascular: normal peripheral pulses, normal rate, regular rhythm Abdomen: normal bowel sounds, soft, non tender, no organomegaly, non distended , no mass, no scars Extremities: no cyanosis, no clubbing Skin: no rash, no lesions, no ulcers Neurologic/Psychiatric: alert, responsive Musculoskeletal: other - left leg swelling Microbiology Date/Time Source Procedure Growth Status 09/08/17 10:15 Blood Blood Culture - Preliminary NO GROWTH AFTER 24 HOURS Resulted 09/08/17 10:15 Blood Blood Culture - Preliminary NO GROWTH AFTER 24 HOURS Resulted 09/08/17 09:50 Urine,Clean Catch Urine Culture - Final Mixed Gram Positive Organism Complete Current Medications Medications (Trade) Dose Ordered Sig/Debbie Route PRN Reason Start Time Stop Time Status Last Admin Dose Admin Acetaminophen (Tylenol) 650 mg Q4H PRN ORAL Mild Pain (Pain Scale 1-3) 09/08/17 13:00 10/08/17 12:59 09/09/17 00:03 Albuterol/ Ipratropium (Albuterol/ Ipratropium) 3 ml Q2H PRN HHN Shortness of Breath 09/08/17 13:00 09/13/17 12:59 Albuterol/ Ipratropium (Albuterol/ Ipratropium) 3 ml Q4HRT HHN 09/08/17 14:00 09/13/17 13:59 09/10/17 11:47 Aspirin (ASA) 81 mg DAILY ORAL 09/09/17 09:00 10/09/17 08:59 09/10/17 09:13 Azithromycin (Zithromax) 250 mg DAILY ORAL 09/09/17 13:30 09/13/17 08:59 09/10/17 09:13 Calcium Carbonate (Calcium Carbonate) 650 mg THREE TIMES A DAY ORAL 09/08/17 18:00 10/08/17 17:59 09/10/17 13:16 Cefepime HCl 2 gm/ Dextrose 55 ml @ 110 mls/hr EVERY 12 HOURS IVPB 09/08/17 16:30 09/15/17 16:29 09/10/17 09:13 Dextrose (Dextrose 50%) STAT PRN IV Hypoglycemia 09/08/17 13:15 10/08/17 13:14 Enoxaparin Sodium (Lovenox) 90 mg EVERY 12 HOURS SUBQ 09/10/17 21:00 10/10/17 20:59 Insulin Aspart (NovoLOG) BEFORE MEALS AND HS SUBQ 09/08/17 16:30 10/08/17 16:29 09/10/17 13:18 Methylprednisolone Sodium Succinate (Solu-MEDROL) 40 mg EVERY 6 HOURS IVP 09/09/17 18:00 10/09/17 17:59 09/10/17 13:16 Ondansetron HCl (Zofran) 4 mg Q6H PRN IVP Nausea & Vomiting 09/08/17 13:00 10/08/17 12:59 Pantoprazole (Protonix) 40 mg DAILY ORAL 09/09/17 09:00 10/09/17 08:59 09/10/17 09:13 Vancomycin HCl (Vanco rx to dose) 1 ea DAILY PRN MISC Per rx protocol 09/08/17 15:15 10/08/17 15:14 Vancomycin HCl/ Dextrose 250 ml @ 166.667 mls/hr Q12HR@0600,1800 IVPB 09/09/17 18:00 09/14/17 17:59 09/10/17 05:59 Billy Roblero M.D. Sep 10, 2017 17:10
[2017-09-10 20:00] VITALS: BP 142/78
[2017-09-10] MEDS: Enoxaparin Sodium 300mg/3ml vial SUBQ SCH (21:05)
--- NOTE | 2017-09-10 23:35 | Nephrology Progress Note ---
Assessment/Plan Problem List: (1) COPD exacerbation (2) Diabetes mellitus (3) Chest pain (4) ACS (acute coronary syndrome) (5) Leukocytosis Assessment: due to steroids. Plan abx per ID. resp care per pulm taper steroids soon. monitor labs. Subjective Subjective SOB improving. Objective Objective Last 24 Hour Vital Signs Date Time Temp Pulse Resp B/P (MAP) Pulse Ox O2 Delivery O2 Flow Rate FiO2 09/10/17 20:00 98.0 106 24 142/78 99 Nasal Cannula 2.0 09/10/17 19:08 28 09/10/17 19:08 90 20 97 Nasal Cannula 2.0 28 09/10/17 18:42 89 20 95 Nasal Cannula 2.0 28 09/10/17 18:41 95 20 Nasal Cannula 2.0 28 09/10/17 16:00 100 09/10/17 16:00 98.2 99 22 110/72 99 Nasal Cannula 2.0 09/10/17 15:25 Nasal Cannula 09/10/17 15:25 Nasal Cannula 09/10/17 12:00 99 09/10/17 12:00 97.0 117 22 117/72 99 Nasal Cannula 2.0 09/10/17 11:58 90 20 98 Nasal Cannula 2.0 28 09/10/17 11:48 28 09/10/17 11:48 90 18 96 Nasal Cannula 2.0 28 09/10/17 08:10 96 20 98 Nasal Cannula 2.0 28 09/10/17 08:00 28 09/10/17 08:00 97.2 104 20 126/76 97 Nasal Cannula 2.0 09/10/17 08:00 94 18 Nasal Cannula 2.0 28 09/10/17 08:00 100 09/10/17 08:00 94 18 99 Nasal Cannula 2.0 28 09/10/17 04:00 100 09/10/17 04:00 97.0 96 20 127/82 100 09/10/17 03:24 102 20 98 Nasal Cannula 2.0 28 09/10/17 03:16 102 20 98 Nasal Cannula 2.0 28 09/10/17 03:16 28 09/10/17 00:00 108 09/10/17 00:00 97.2 105 20 124/96 98 Intake and Output 09/09/17 09/10/17 19:00 07:00 Intake Total 856.667 ml 286.667 ml Balance 856.667 ml 286.667 ml Intake Oral 580 ml 120 ml IV Total 276.667 ml 166.667 ml # Voids 2 2 Height (Feet): 5 Height (Inches): 4.00 Weight (Pounds): 195 General Appearance: no apparent distress Cardiovascular: normal rate, regular rhythm Respiratory/Chest: decreased breath sounds Abdomen: non tender, soft Extremities: non-pitting AMRITA COATES Sep 10, 2017 23:35
[2017-09-11] VITALS: BP 145/97
[2017-09-11] MEDS: Solu-MEDROL 40mg Inj IVP SCH ×3 (00:30→17:19)
--- NOTE | 2017-09-11 02:15 | Progress Note ---
DATE: 09/10/2017 CARDIOLOGY PROGRESS NOTE SUBJECTIVE: The patient continues to have congestion and shortness of breath. She remains on steroids and inhaled bronchodilators including albuterol and is on IV antibiotics. She has episodes of asymptomatic nonsustained ventricular tachycardia and atrial fibrillation short-lived with aberrancy. She has not had any chest pain. OBJECTIVE: VITAL SIGNS: Blood pressure 142/78, pulse 106, respiratory rate 24, afebrile. LUNGS: Coarse breath sounds with few rhonchi. Expiratory wheezing. HEART: Regular rhythm and rate. Normal S1, S2. ABDOMEN: Soft. EXTREMITIES: No edema. LABORATORY DATA: White count 27, hemoglobin 15. Potassium 4.5. Pro-natriuretic peptide 6500. IMPRESSION: 1. Chronic obstructive pulmonary disease exacerbation. 2. Nonsustained ventricular tachycardia. 3. Anginal episode. 4. Severe protein-calorie malnutrition. 5. Leukocytosis, on steroids. 6. Secondary polycythemia. PLAN: 1. Limit use of beta-agonist as able. 2. Continue cardiac monitoring. 3. Recheck electrolytes. 4. Aspirin prophylaxis. 5. Check troponin level. 6. Myocardial perfusion scan to follow. Teofilo Chavez JOB#: [id number] CC:
[2017-09-11] MEDS: Albuterol/Ipratropium 3ml neb HHN SCH ×6 (03:11→22:34)
[2017-09-11 04:05] VITALS: BP 132/82
--- NOTE | 2017-09-11 05:00 | Consultation ---
DATE OF CONSULTATION: 09/10/2017 HEMATOLOGY/ONCOLOGY CONSULTATION CONSULTING PHYSICIAN: Bayron Moran M.D. REFERRING PHYSICIAN: Nba Oscar M.D. REASON FOR CONSULTATION: Evaluation of leukocytosis. IDENTIFYING DATA: The patient is a pleasant 61-year-old female with past medical history significant for COPD, diabetes mellitus, and bronchitis, at this time presents to the hospital with COPD exacerbation and sepsis in a diabetic patient, presented to the hospital with shortness of breath. The patient is productive, sometimes tinged with blood, significant wheezing, shortness of breath also noted. Dr. Brody has been consulted, has been having inhalers steroid use, found to have significant leukocytosis, white count 23,000, showed evidence of infection in the urine. ID Service consulted, Dr. Roblero. Hematology consulted to rule out underlying malignancy given elevated white count. PAST MEDICAL HISTORY: Diabetes mellitus, COPD, and bronchitis. PAST SURGICAL HISTORY: None noted. MEDICATIONS: Reviewed, methylprednisolone. ALLERGIES: No known drug allergies. SOCIAL HISTORY: Lives with her niece. Still currently a smoker. Denies any alcohol or drug use. FAMILY HISTORY: Noncontributory. REVIEW OF SYSTEMS: A 12-point review of systems is otherwise negative. PHYSICAL EXAMINATION: VITAL SIGNS: Reviewed. GENERAL: No distress. PULMONARY: Decreased breath sounds. CARDIOVASCULAR: Regular rate. No S3 or S4. ABDOMEN: Soft, nontender, and nondistended. EXTREMITIES: There is 1+ edema. LABORATORY DATA: Lab data reviewed. WBC 23,000, hemoglobin 13.1, and platelet count 271,000. BUN of 10 and creatinine 0.7. Urinalysis is positive for urinary tract infection. IMAGING: Chest x-ray, cardiomegaly and interstitial edema. ASSESSMENT AND RECOMMENDATIONS: 1. Leukocytosis, likely secondary to underlying methylprednisolone use in addition to potential urinary tract infection, sepsis, and pneumonia. 2. Chronic obstructive pulmonary disease exacerbation. Continue antibiotics, inhaler, and oxygen. 3. Pneumonia complicated by sepsis. Continue antibiotics as per Dr. Roblero. 4. Diabetes mellitus with tight glucose control. Keep glucose between 80 to 120. 5. Urinary tract infection. Continue urine culture . It is unlikely the patient has myeloproliferative disorder. I appreciate the consultation, Dr. Oscar. Bayron Teofilo Moran DR: ISABELLA JOB#: [id number] CC:
[2017-09-11] MEDS: Vancomycin 1250mg/D5W 250ml IVPB SCH (06:21)
[2017-09-11] MEDS: NovoLOG Insulin Flexpen SUBQ SCH ×4 (06:26→21:33)
[2017-09-11 06:50] LABS: MEAN CORPUSCULAR HEMOGLOBIN 31.1 PG (27.0-31.0); MEAN CORPUSCULAR HGB CONC 30.7 G/DL (32.0-36.0); MEAN CORPUSCULAR VOLUME 101 FL (80-99); PLATELET COUNT 250 K/UL (150-450); RED BLOOD COUNT 4.39 M/UL (4.20-5.40); RED CELL DISTRIBUTION WIDTH 16.1 % (11.6-14.8)
[2017-09-11 06:52] LABS: WHITE BLOOD COUNT 25.9 K/UL (4.8-10.8)
[2017-09-11 06:55] LABS: MAGNESIUM 2.3 MG/DL (1.8-2.4)
[2017-09-11 07:02] LABS: ALANINE AMINOTRANSFERASE 32 U/L (12-78); ALBUMIN/GLOBULIN RATIO 0.4 (1.0-2.7); ANION GAP 7 mmol/L (5-15); ASPARTATE AMINO TRANSFERASE 35 U/L (15-37); CALCIUM 7.7 MG/DL (8.5-10.1); CARBON DIOXIDE 26 MMOL/L (21-32); CHLORIDE 105 MMOL/L (98-107); GLOMERULAR FILTRATION RATE > 60 mL/min (>60); POTASSIUM 4.6 MMOL/L (3.5-5.1); SODIUM 138 MMOL/L (136-145)
[2017-09-11 08:00] VITALS: BP 133/87
--- NOTE | 2017-09-11 09:20 | Pulmonology Progress Note ---
Assessment/Plan Assessment/Plan 1. Chronic obstructive pulmonary disease exacerbation. 2. Urinary tract infection. 3. Leukocytosis. 4. Chest pain, rule out acute coronary syndrome. 5. Hypertension. 6. Diabetes. 7. Shortness of breath. 8. Weakness, generalized. PLAN improved overall reduce solumedrol; hope to taper to PO prednisone in am respiratory care optimize fluid status per renal impression, plan, and exam edited and reviewed in detail care discussed with RN Subjective Allergies: Coded Allergies: No Known Allergies (Unverified , 01/02/15) Subjective stable without sob minimal congestion Objective Last 24 Hour Vital Signs Date Time Temp Pulse Resp B/P (MAP) Pulse Ox O2 Delivery O2 Flow Rate FiO2 09/11/17 08:00 97.4 98 19 133/87 100 09/11/17 07:51 Nasal Cannula 2.0 09/11/17 07:51 Nasal Cannula 2.0 09/11/17 07:50 99 20 Nasal Cannula 2.0 28 09/11/17 04:05 97.7 104 20 132/82 100 Nasal Cannula 09/11/17 04:00 95 09/11/17 03:11 85 20 94 Nasal Cannula 2.0 28 09/11/17 00:26 Nasal Cannula 09/11/17 00:26 Nasal Cannula 09/11/17 00:00 97.5 106 20 145/97 95 Nasal Cannula 09/11/17 00:00 101 09/10/17 20:00 98.0 106 24 142/78 99 Nasal Cannula 2.0 09/10/17 20:00 109 09/10/17 19:08 28 09/10/17 19:08 90 20 97 Nasal Cannula 2.0 28 09/10/17 18:42 89 20 95 Nasal Cannula 2.0 28 09/10/17 18:41 95 20 Nasal Cannula 2.0 28 09/10/17 16:00 100 09/10/17 16:00 98.2 99 22 110/72 99 Nasal Cannula 2.0 09/10/17 15:25 Nasal Cannula 09/10/17 15:25 Nasal Cannula 09/10/17 12:00 99 09/10/17 12:00 97.0 117 22 117/72 99 Nasal Cannula 2.0 09/10/17 11:58 90 20 98 Nasal Cannula 2.0 28 09/10/17 11:48 28 09/10/17 11:48 90 18 96 Nasal Cannula 2.0 28 Intake and Output 09/10/17 09/11/17 19:00 07:00 Intake Total 1243.333 ml Balance 1243.333 ml Intake Oral 800 ml IV Total 443.333 ml # Voids 2 2 Objective WDWN NAD reduced breath sounds bilaterally without rhonchi or wheeze [id number] without MRG NABS nontender no HSM no CCE nonfocal Microbiology Date/Time Source Procedure Growth Status 09/08/17 10:15 Blood Blood Culture - Preliminary NO GROWTH AFTER 48 HOURS Resulted 09/08/17 10:15 Blood Blood Culture - Preliminary NO GROWTH AFTER 48 HOURS Resulted 09/08/17 09:50 Urine,Clean Catch Urine Culture - Final Mixed Gram Positive Organism Complete Laboratory Tests 09/11/17 05:30: White Blood Count 25.9*H, Red Blood Count 4.39, Hemoglobin 13.7, Hematocrit 44.5 , Mean Corpuscular Volume 101H, Mean Corpuscular Hemoglobin 31.1H, Mean Corpuscular Hemoglobin Concent 30.7L, Red Cell Distribution Width 16.1H, Platelet Count 250, Mean Platelet Volume 6.0L, Neutrophils (%) (Auto) , Lymphocytes (%) (Auto) , Monocytes (%) (Auto) , Eosinophils (%) (Auto) , Basophils (%) (Auto) , Neutrophils % (Manual) [Pending], Lymphocytes % (Manual) [Pending], Platelet Estimate [Pending], Platelet Morphology [Pending], Sodium Level 138, Potassium Level 4.6, Chloride Level 105, Carbon Dioxide Level 26, Anion Gap 7, Blood Urea Nitrogen 23H, Creatinine 1.0, Estimat Glomerular Filtration Rate > 60, Glucose Level 314H, Calcium Level 7.7L, Magnesium Level 2.3, Total Bilirubin 0.6, Aspartate Amino Transf (AST/SGOT) 35, Alanine Aminotransferase (ALT/SGPT) 32, Alkaline Phosphatase 105, Troponin I 0.045, Pro- B-Type Natriuretic Peptide 9419H, Total Protein 7.0, Albumin 2.1L, Globulin 4.9 , Albumin/Globulin Ratio 0.4L, Vancomycin Level Trough 12.5H Current Medications Medications (Trade) Dose Ordered Sig/Debbie Route PRN Reason Start Time Stop Time Status Last Admin Dose Admin Acetaminophen (Tylenol) 650 mg Q4H PRN ORAL Mild Pain (Pain Scale 1-3) 09/08/17 13:00 10/08/17 12:59 09/09/17 00:03 Albuterol/ Ipratropium (Albuterol/ Ipratropium) 3 ml Q2H PRN HHN Shortness of Breath 09/08/17 13:00 09/13/17 12:59 Albuterol/ Ipratropium (Albuterol/ Ipratropium) 3 ml Q4HRT HHN 09/08/17 14:00 09/13/17 13:59 09/11/17 03:11 Aspirin (ASA) 81 mg DAILY ORAL 09/09/17 09:00 10/09/17 08:59 09/10/17 09:13 Azithromycin (Zithromax) 250 mg DAILY ORAL 09/09/17 13:30 09/13/17 08:59 09/10/17 09:13 Calcium Carbonate (Calcium Carbonate) 650 mg THREE TIMES A DAY ORAL 09/08/17 18:00 10/08/17 17:59 09/10/17 17:29 Cefepime HCl 2 gm/ Dextrose 55 ml @ 110 mls/hr EVERY 12 HOURS IVPB 09/08/17 16:30 09/15/17 16:29 09/10/17 21:04 Dextrose (Dextrose 50%) STAT PRN IV Hypoglycemia 09/08/17 13:15 10/08/17 13:14 Enoxaparin Sodium (Lovenox) 90 mg EVERY 12 HOURS SUBQ 09/10/17 21:00 10/10/17 20:59 09/10/17 21:05 Insulin Aspart (NovoLOG) BEFORE MEALS AND HS SUBQ 09/08/17 16:30 10/08/17 16:29 09/11/17 06:26 Methylprednisolone Sodium Succinate (Solu-MEDROL) 40 mg EVERY 6 HOURS IVP 09/09/17 18:00 10/09/17 17:59 09/11/17 06:20 Ondansetron HCl (Zofran) 4 mg Q6H PRN IVP Nausea & Vomiting 09/08/17 13:00 10/08/17 12:59 Pantoprazole (Protonix) 40 mg DAILY ORAL 09/09/17 09:00 10/09/17 08:59 09/10/17 09:13 Vancomycin HCl (Vanco rx to dose) 1 ea DAILY PRN MISC Per rx protocol 09/08/17 15:15 10/08/17 15:14 Vancomycin HCl/ Dextrose 250 ml @ 166.667 mls/hr Q12HR@0600,1800 IVPB 09/09/17 18:00 09/14/17 17:59 09/11/17 06:21 SOY MENDOZA Sep 11, 2017 09:20
[2017-09-11] MEDS: Calcium Carbonate 650mg Tab ORAL SCH ×3 (09:50→17:17)
[2017-09-11] MEDS: Azithromycin 250mg tab ORAL SCH (09:50)
[2017-09-11] MEDS: Aspirin Baby 81mg ORAL SCH (09:50)
[2017-09-11] MEDS: Cefepime HCl 2 GM in D5W 55 ML IVPB SCH ×2 (09:50→21:32)
[2017-09-11 10:26] LABS: ANISOCYTOSIS 1+; BAND NEUTROPHILS % (MANUAL) 0 % (0-8); BASOPHILS % (MANUAL) 0 % (0-2); EOSINOPHILS % (MANUAL) 0 % (0-3); HYPOCHROMASIA 1+; LYMPHOCYTES % (MANUAL) 3 % (20-45); NEUTROPHILS % (MANUAL) 96 % (45-75); PLATELET ESTIMATE ADEQUATE; PLATELET MORPHOLOGY NORMAL; TOTAL CELLS COUNTED 100
[2017-09-11] MEDS: Enoxaparin Sodium 300mg/3ml vial SUBQ SCH ×2 (11:03→21:33)
[2017-09-11 12:00] VITALS: BP 127/78
--- NOTE | 2017-09-11 12:36 | Infectious Diseases Prog Note ---
Assessment/Plan Problems: (1) Pneumonia Assessment & Plan: on Zithromax , vancomycin and cefepime , pending sputum culture (2) UTI (urinary tract infection) Assessment & Plan: on cefepime empirically pending culture result (3) COPD exacerbation Assessment & Plan: continue antibiotics, inhalers and oxygen as needed , please taper steroids (4) Severe sepsis Assessment & Plan: due to the above, with elevated WBC today , suspect due to steroids, will continue vancomycin with cefepime for now pending culture results , recommend to taper steroids (5) Diabetes mellitus Assessment & Plan: recommend tight glycemic control to keep blood glucose between 80-120 (6) Left leg DVT Assessment & Plan: recommend anticoagulation , and to keep leg elevated while in bed Subjective Constitutional: Reports: no symptoms HEENT: Reports: no symptoms Respiratory: Reports: productive cough Breasts: Reports: no symptoms Cardiovascular: Reports: no symptoms Gastrointestinal/Abdominal: Reports: no symptoms Genitourinary: Reports: no symptoms Neurologic: Reports: no symptoms Psychiatric: Reports: no symptoms Skin: Reports: no symptoms Endocrine: Reports: no symptoms Hematologic: Reports: no symptoms Musculoskeletal: Reports: no symptoms Allergies: Coded Allergies: No Known Allergies (Unverified , 01/02/15) Objective Vital Signs Last 24 Hour Vital Signs Date Time Temp Pulse Resp B/P (MAP) Pulse Ox O2 Delivery O2 Flow Rate FiO2 09/11/17 11:52 92 20 98 Nasal Cannula 2.0 09/11/17 11:52 28 09/11/17 11:40 88 20 95 Nasal Cannula 2.0 09/11/17 08:00 97.4 98 19 133/87 100 09/11/17 08:00 98 09/11/17 07:51 Nasal Cannula 2.0 09/11/17 07:51 Nasal Cannula 2.0 09/11/17 07:50 99 20 Nasal Cannula 2.0 28 09/11/17 04:05 97.7 104 20 132/82 100 Nasal Cannula 09/11/17 04:00 95 09/11/17 03:11 85 20 94 Nasal Cannula 2.0 09/11/17 00:26 Nasal Cannula 09/11/17 00:26 Nasal Cannula 09/11/17 00:00 97.5 106 20 145/97 95 Nasal Cannula 09/11/17 00:00 101 09/10/17 20:00 98.0 106 24 142/78 99 Nasal Cannula 2.0 09/10/17 20:00 109 09/10/17 19:08 28 09/10/17 19:08 90 20 97 Nasal Cannula 2.0 28 09/10/17 18:42 89 20 95 Nasal Cannula 2.0 28 09/10/17 18:41 95 20 Nasal Cannula 2.0 28 09/10/17 16:00 100 09/10/17 16:00 98.2 99 22 110/72 99 Nasal Cannula 2.0 09/10/17 15:25 Nasal Cannula 09/10/17 15:25 Nasal Cannula Height (Feet): 5 Height (Inches): 4.00 Weight (Pounds): 195 General Appearance: WD/WN, no acute distress HEENT: normocephalic, atraumatic, anicteric, mucous membranes moist, PERRL Respiratory/Chest: chest wall non-tender, no respiratory distress, no accessory muscle use, decreased breath sounds, expiratory wheezing Cardiovascular: normal peripheral pulses, normal rate, regular rhythm, no gallop/murmur, no JVD Abdomen: normal bowel sounds, soft, non tender, no organomegaly, non distended , no mass, no scars Extremities: no cyanosis, no clubbing Skin: no rash, no lesions, no ulcers Neurologic/Psychiatric: alert, oriented x 3, responsive Laboratory Tests Test 09/11/17 05:30 White Blood Count 25.9 K/UL (4.8-10.8) *H Red Blood Count 4.39 M/UL (4.20-5.40) Hemoglobin 13.7 G/DL (12.0-16.0) Hematocrit 44.5 % (37.0-47.0) Mean Corpuscular Volume 101 FL (80-99) H Mean Corpuscular Hemoglobin 31.1 PG (27.0-31.0) H Mean Corpuscular Hemoglobin Concent 30.7 G/DL (32.0-36.0) L Red Cell Distribution Width 16.1 % (11.6-14.8) H Platelet Count 250 K/UL (150-450) Mean Platelet Volume 6.0 FL (6.5-10.1) L Neutrophils (%) (Auto) % (45.0-75.0) Lymphocytes (%) (Auto) % (20.0-45.0) Monocytes (%) (Auto) % (1.0-10.0) Eosinophils (%) (Auto) % (0.0-3.0) Basophils (%) (Auto) % (0.0-2.0) Differential Total Cells Counted 100 Neutrophils % (Manual) 96 % (45-75) H Lymphocytes % (Manual) 3 % (20-45) L Monocytes % (Manual) 1 % (1-10) Eosinophils % (Manual) 0 % (0-3) Basophils % (Manual) 0 % (0-2) Band Neutrophils 0 % (0-8) Platelet Estimate Adequate Platelet Morphology Normal Hypochromasia 1+ Anisocytosis 1+ Sodium Level 138 MMOL/L (136-145) Potassium Level 4.6 MMOL/L (3.5-5.1) Chloride Level 105 MMOL/L (98-107) Carbon Dioxide Level 26 MMOL/L (21-32) Anion Gap 7 mmol/L (5-15) Blood Urea Nitrogen 23 mg/dL (7-18) H Creatinine 1.0 MG/DL (0.55-1.30) Estimat Glomerular Filtration Rate > 60 mL/min (>60) Glucose Level 314 MG/DL (74-106) H Calcium Level 7.7 MG/DL (8.5-10.1) L Magnesium Level 2.3 MG/DL (1.8-2.4) Total Bilirubin 0.6 MG/DL (0.2-1.0) Aspartate Amino Transf (AST/SGOT) 35 U/L (15-37) Alanine Aminotransferase (ALT/SGPT) 32 U/L (12-78) Alkaline Phosphatase 105 U/L (46-116) Troponin I 0.045 ng/mL (0.000-0.056) Pro-B-Type Natriuretic Peptide 9419 pg/mL (0-125) H Total Protein 7.0 G/DL (6.4-8.2) Albumin 2.1 G/DL (3.4-5.0) L Globulin 4.9 g/dL Albumin/Globulin Ratio 0.4 (1.0-2.7) L Vancomycin Level Trough 12.5 ug/mL (5.0-12.0) H Current Medications Medications (Trade) Dose Ordered Sig/Debbie Route PRN Reason Start Time Stop Time Status Last Admin Dose Admin Acetaminophen (Tylenol) 650 mg Q4H PRN ORAL Mild Pain (Pain Scale 1-3) 09/08/17 13:00 10/08/17 12:59 09/09/17 00:03 Albuterol/ Ipratropium (Albuterol/ Ipratropium) 3 ml Q2H PRN HHN Shortness of Breath 09/08/17 13:00 09/13/17 12:59 Albuterol/ Ipratropium (Albuterol/ Ipratropium) 3 ml Q4HRT HHN 09/08/17 14:00 09/13/17 13:59 09/11/17 11:40 Aspirin (ASA) 81 mg DAILY ORAL 09/09/17 09:00 10/09/17 08:59 09/11/17 09:50 Azithromycin (Zithromax) 250 mg DAILY ORAL 09/09/17 13:30 09/13/17 08:59 09/11/17 09:50 Calcium Carbonate (Calcium Carbonate) 650 mg THREE TIMES A DAY ORAL 09/08/17 18:00 10/08/17 17:59 09/11/17 09:50 Cefepime HCl 2 gm/ Dextrose 55 ml @ 110 mls/hr EVERY 12 HOURS IVPB 09/08/17 16:30 09/15/17 16:29 09/11/17 09:50 Dextrose (Dextrose 50%) STAT PRN IV Hypoglycemia 09/08/17 13:15 10/08/17 13:14 Enoxaparin Sodium (Lovenox) 90 mg EVERY 12 HOURS SUBQ 09/10/17 21:00 10/10/17 20:59 09/11/17 11:03 Insulin Aspart (NovoLOG) BEFORE MEALS AND HS SUBQ 09/08/17 16:30 10/08/17 16:29 09/11/17 11:08 Methylprednisolone Sodium Succinate (Solu-MEDROL) 40 mg BID IVP 09/11/17 18:00 10/09/17 17:59 Ondansetron HCl (Zofran) 4 mg Q6H PRN IVP Nausea & Vomiting 09/08/17 13:00 10/08/17 12:59 Pantoprazole (Protonix) 40 mg DAILY ORAL 09/09/17 09:00 10/09/17 08:59 09/11/17 09:50 Vancomycin HCl (Vanco rx to dose) 1 ea DAILY PRN MISC Per rx protocol 09/08/17 15:15 10/08/17 15:14 Vancomycin/Sodium Chloride 250 ml @ 166.667 mls/hr Q8H IVPB 09/11/17 14:00 09/14/17 13:59 Billy Roblero M.D. Sep 11, 2017 12:35
[2017-09-11] MEDS: Vancomycin 750mg/NS 250ml IVPB SCH ×2 (13:14→22:30)
[2017-09-11 16:00] VITALS: BP 128/79
--- NOTE | 2017-09-11 18:15 | History and Physical Report ---
DATE OF ADMISSION: 09/08/2017 HISTORY OF PRESENT ILLNESS: This is a 61-year-old female, currently came with short of breath, hypoxia, and improving blood pressure. PAST MEDICAL HISTORY: COPD and obesity. ALLERGIES: NKA. FAMILY HISTORY: Noncontributory. PHYSICAL EXAMINATION: GENERAL: This is an elderly female, who is currently awake, comfortable. VITAL SIGNS: Blood pressure is 130/70, pulse 60, and respirations 18. No fever. HEENT: AT/NC. EOMI. PERRLA. NECK: Supple. CHEST: Bilateral scattered crackles. CARDIOVASCULAR: Regular rhythm. No gallop. No murmur. ABDOMEN: Soft. EXTREMITIES: CCE. NEUROLOGICAL: No focal deficit. ASSESSMENT: 1. Acute chronic obstructive pulmonary disease. 2. Obesity. 3. Hypertension. PLAN: Continue bronchodilator treatment with steroid. Continue supportive treatment. Melvin Self M.D. DR: Jaden JOB#: [id number] CC:
[2017-09-11 20:00] VITALS: BP 124/79
--- NOTE | 2017-09-11 20:50 | General Progress Note ---
Assessment/Plan Assessment/Plan ASSESSMENT AND RECOMMENDATIONS: 1. Leukocytosis, likely secondary to underlying methylprednisolone use in addition to infection. ID following 2. Chronic obstructive pulmonary disease exacerbation. Continue antibiotics, inhaler, and oxygen. 3. Pneumonia complicated by sepsis. Continue antibiotics as per Dr. Roblero. 4. Diabetes mellitus with tight glucose control. Keep glucose frlentl56 to 120. Subjective Hematologic/Lymphatic: Reports: anemia Allergies: Coded Allergies: No Known Allergies (Unverified , 01/02/15) All Systems: reviewed and negative except above Subjective afebrile Objective Last 24 Hour Vital Signs Date Time Temp Pulse Resp B/P (MAP) Pulse Ox O2 Delivery O2 Flow Rate FiO2 09/11/17 20:00 97.5 100 20 124/79 95 09/11/17 18:35 100 20 100 Room Air 09/11/17 18:30 102 20 96 Room Air 21 09/11/17 16:00 98.4 101 19 128/79 95 09/11/17 16:00 101 09/11/17 15:37 98 22 97 Nasal Cannula 2.0 28 09/11/17 15:28 99 20 93 Room Air 21 09/11/17 12:00 100 09/11/17 12:00 98.4 103 19 127/78 95 09/11/17 11:52 92 20 98 Nasal Cannula 2.0 28 09/11/17 11:52 28 09/11/17 11:40 88 20 95 Nasal Cannula 2.0 28 09/11/17 08:00 97.4 98 19 133/87 100 09/11/17 08:00 98 09/11/17 07:51 Nasal Cannula 2.0 09/11/17 07:51 Nasal Cannula 2.0 09/11/17 07:50 99 20 Nasal Cannula 2.0 28 09/11/17 04:05 97.7 104 20 132/82 100 Nasal Cannula 09/11/17 04:00 95 09/11/17 03:11 85 20 94 Nasal Cannula 2.0 28 09/11/17 00:26 Nasal Cannula 09/11/17 00:26 Nasal Cannula 09/11/17 00:00 97.5 106 20 145/97 95 Nasal Cannula 09/11/17 00:00 101 Intake and Output 09/10/17 09/11/17 19:00 07:00 Intake Total 1243.333 ml Balance 1243.333 ml Intake Oral 800 ml IV Total 443.333 ml # Voids 2 2 Laboratory Tests 09/11/17 05:30: White Blood Count 25.9*H, Red Blood Count 4.39, Hemoglobin 13.7, Hematocrit 44.5 , Mean Corpuscular Volume 101H, Mean Corpuscular Hemoglobin 31.1H, Mean Corpuscular Hemoglobin Concent 30.7L, Red Cell Distribution Width 16.1H, Platelet Count 250, Mean Platelet Volume 6.0L, Neutrophils (%) (Auto) , Lymphocytes (%) (Auto) , Monocytes (%) (Auto) , Eosinophils (%) (Auto) , Basophils (%) (Auto) , Differential Total Cells Counted 100, Neutrophils % ( Manual) 96H, Lymphocytes % (Manual) 3L, Monocytes % (Manual) 1, Eosinophils % ( Manual) 0, Basophils % (Manual) 0, Band Neutrophils 0, Platelet Estimate Adequate, Platelet Morphology Normal, Hypochromasia 1+, Anisocytosis 1+, Sodium Level 138, Potassium Level 4.6, Chloride Level 105, Carbon Dioxide Level 26, Anion Gap 7, Blood Urea Nitrogen 23H, Creatinine 1.0, Estimat Glomerular Filtration Rate > 60, Glucose Level 314H, Calcium Level 7.7L, Magnesium Level 2.3, Total Bilirubin 0.6, Aspartate Amino Transf (AST/SGOT) 35, Alanine Aminotransferase (ALT/SGPT) 32, Alkaline Phosphatase 105, Troponin I 0.045, Pro- B-Type Natriuretic Peptide 9419H, Total Protein 7.0, Albumin 2.1L, Globulin 4.9 , Albumin/Globulin Ratio 0.4L, Vancomycin Level Trough 12.5H 09/11/17 12:15: Stool Occult Blood [Pending] Height (Feet): 5 Height (Inches): 4.00 Weight (Pounds): 195 General Appearance: no apparent distress EENT: normal ENT inspection Neck: normal alignment Cardiovascular: normal peripheral pulses Respiratory/Chest: chest wall non-tender Abdomen: non tender Edema: 1+ Pedal (L), 1+ Pedal (R) Edema: mild edema Bayron Moran Sep 11, 2017 20:50
--- NOTE | 2017-09-11 21:19 | Nephrology Progress Note ---
Assessment/Plan Problem List: (1) Chest pain (2) ACS (acute coronary syndrome) (3) Leukocytosis (4) HTN (hypertension) (5) CHF (congestive heart failure) (6) Anxiety (7) UTI (urinary tract infection) (8) COPD exacerbation (9) Severe sepsis (10) Diabetes mellitus Plan Will continue current treatment plan Monitor lites, correct prn' Continue abx per ID Continue neb treatment O2 prn Daily PPI DVT prophylaxis AM labs Subjective Constitutional: Denies: no symptoms, chills, diaphoresis, fever, malaise, weakness, other HEENT: Denies: no symptoms, eye pain, blurred vision, tearing, double vision, ear pain, ear discharge, nose pain, nose congestion, throat pain, throat swelling, mouth pain, mouth swelling, other Genitourinary: Denies: no symptoms, burning, discharge, frequency, flank pain, hematuria, incontinence, pain, urgency, other Neurologic/Psychiatric: Denies: no symptoms, anxiety, depressed, emotional problems, headache, numbness, paresthesia, pre-existing deficit, seizure, tingling, tremors, weakness, other Subjective In no distress, states that she gets SOB often Objective Objective Last 24 Hour Vital Signs Date Time Temp Pulse Resp B/P (MAP) Pulse Ox O2 Delivery O2 Flow Rate FiO2 09/11/17 20:00 97.5 100 20 124/79 95 09/11/17 18:35 100 20 100 Room Air 09/11/17 18:30 102 20 96 Room Air 21 09/11/17 16:00 98.4 101 19 128/79 95 09/11/17 16:00 101 09/11/17 15:37 98 22 97 Nasal Cannula 2.0 28 09/11/17 15:28 99 20 93 Room Air 21 09/11/17 12:00 100 09/11/17 12:00 98.4 103 19 127/78 95 09/11/17 11:52 92 20 98 Nasal Cannula 2.0 28 09/11/17 11:52 28 09/11/17 11:40 88 20 95 Nasal Cannula 2.0 28 09/11/17 08:00 97.4 98 19 133/87 100 09/11/17 08:00 98 09/11/17 07:51 Nasal Cannula 2.0 09/11/17 07:51 Nasal Cannula 2.0 09/11/17 07:50 99 20 Nasal Cannula 2.0 28 09/11/17 04:05 97.7 104 20 132/82 100 Nasal Cannula 09/11/17 04:00 95 09/11/17 03:11 85 20 94 Nasal Cannula 2.0 28 09/11/17 00:26 Nasal Cannula 09/11/17 00:26 Nasal Cannula 09/11/17 00:00 97.5 106 20 145/97 95 Nasal Cannula 09/11/17 00:00 101 Intake and Output 09/10/17 09/11/17 19:00 07:00 Intake Total 1243.333 ml Balance 1243.333 ml Intake Oral 800 ml IV Total 443.333 ml # Voids 2 2 Laboratory Tests 09/11/17 05:30: White Blood Count 25.9*H, Red Blood Count 4.39, Hemoglobin 13.7, Hematocrit 44.5 , Mean Corpuscular Volume 101H, Mean Corpuscular Hemoglobin 31.1H, Mean Corpuscular Hemoglobin Concent 30.7L, Red Cell Distribution Width 16.1H, Platelet Count 250, Mean Platelet Volume 6.0L, Neutrophils (%) (Auto) , Lymphocytes (%) (Auto) , Monocytes (%) (Auto) , Eosinophils (%) (Auto) , Basophils (%) (Auto) , Differential Total Cells Counted 100, Neutrophils % ( Manual) 96H, Lymphocytes % (Manual) 3L, Monocytes % (Manual) 1, Eosinophils % ( Manual) 0, Basophils % (Manual) 0, Band Neutrophils 0, Platelet Estimate Adequate, Platelet Morphology Normal, Hypochromasia 1+, Anisocytosis 1+, Sodium Level 138, Potassium Level 4.6, Chloride Level 105, Carbon Dioxide Level 26, Anion Gap 7, Blood Urea Nitrogen 23H, Creatinine 1.0, Estimat Glomerular Filtration Rate > 60, Glucose Level 314H, Calcium Level 7.7L, Magnesium Level 2.3, Total Bilirubin 0.6, Aspartate Amino Transf (AST/SGOT) 35, Alanine Aminotransferase (ALT/SGPT) 32, Alkaline Phosphatase 105, Troponin I 0.045, Pro- B-Type Natriuretic Peptide 9419H, Total Protein 7.0, Albumin 2.1L, Globulin 4.9 , Albumin/Globulin Ratio 0.4L, Vancomycin Level Trough 12.5H 12/25/17 12:15: Stool Occult Blood [Pending] Height (Feet): 5 Height (Inches): 4.00 Weight (Pounds): 195 General Appearance: no apparent distress, alert EENT: normal ENT inspection Neck: non-tender, normal alignment Cardiovascular: normal rate, regular rhythm Respiratory/Chest: normal breath sounds, no respiratory distress Abdomen: soft, no organomegaly Extremities: non-tender, normal inspection Neurologic: alert, oriented x 3, responsive, normal mood/affect Pao Healy N.P. Sep 11, 2017 21:19
[2017-09-12] VITALS: BP 139/83
[2017-09-12 04:00] VITALS: BP 138/99
[2017-09-12] MEDS: Albuterol/Ipratropium 3ml neb HHN SCH ×6 (04:22→22:47)
[2017-09-12] MEDS: NovoLOG Insulin Flexpen SUBQ SCH ×4 (06:30→21:36)
[2017-09-12] MEDS: Vancomycin 750mg/NS 250ml IVPB SCH ×3 (06:45→22:31)
--- NOTE | 2017-09-12 07:33 | Cardiology Report ---
APPROVED REPORT EXAM: Two-dimensional and M-mode echocardiogram with Doppler and color Doppler. INDICATION Arrhythmia M-Mode DIMENSIONS IVSd0.9 (0.7-1.1cm)Left Atrium (MM)4.3 (1.6-4.0cm) LVDd5.8 (3.5-5.6cm)Aortic Root2.3 (2.0-3.7cm) PWd1.2 (0.7-1.1cm)Aortic Cusp Exc.1.6 (1.5-2.0cm) LVDs5.2 (2.5-4.0cm) PWs1.2 cm Mild left ventricular enlargement. Global left ventricular hypokinesis. Left ventricular ejection fraction estimated to be 20-25%. No evidence of left ventricular hypertrophy. No evidence of pericardial or pleural effusion. Moderate bi-atrial enlargement by 2D. Focal aortic valve sclerosis with adequate cusp excursion. Thickened mitral valve leaflets with normal excursion. Mild mitral annulus and aortic root calcification. Pulmonic valve is well visualized. Normal tricuspid valve structure. IVC dilated at 2.5cm non-collapsible with respiration indicate increased RA pressure. A color flow and spectral Doppler study was performed and revealed: No aortic regurgitation. Mild mitral regurgitation. Mitral diastolic velocities suggest reduced left ventricular relaxation c/w diastolic dysfunction grade 1. Severe tricuspid regurgitation. Tricuspid systolic velocities suggests peak right ventricular systolic pressure of 57 mmHg Consistent with severe pulmonary hypertension. Pulmonic regurgitation present.
[2017-09-12 08:00] VITALS: BP 131/88
[2017-09-12] MEDS: Cefepime HCl 2 GM in D5W 55 ML IVPB SCH ×2 (08:18→21:33)
[2017-09-12] MEDS: Azithromycin 250mg tab ORAL SCH (08:19)
[2017-09-12] MEDS: Solu-MEDROL 40mg Inj IVP SCH ×2 (08:19→17:07)
[2017-09-12] MEDS: Calcium Carbonate 650mg Tab ORAL SCH ×3 (08:19→17:07)
[2017-09-12] MEDS: Aspirin Baby 81mg ORAL SCH (08:19)
--- NOTE | 2017-09-12 09:21 | Pulmonology Progress Note ---
Assessment/Plan Assessment/Plan 1. Chronic obstructive pulmonary disease exacerbation. 2. Urinary tract infection. 3. Leukocytosis. 4. Chest pain, rule out acute coronary syndrome. 5. Hypertension. 6. Diabetes. 7. Shortness of breath. 8. Weakness, generalized. PLAN: Continue DuoNeb q.4 hours and p.r.n. Continue steroids and antibiotics. O2. Has marked leucocytosis; suspect due to steroids Non-toxic appearing Subjective Interval Events: Feeling better; still has marked leucocytosis Constitutional: Reports: no symptoms HEENT: Repors: no symptoms Respiratory: Reports: no symptoms Cardiovascular: Reports: no symptoms Gastrointestinal/Abdominal: Reports: no symptoms Genitourinary: Reports: no symptoms Allergies: Coded Allergies: No Known Allergies (Unverified , 01/02/15) Objective Last 24 Hour Vital Signs Date Time Temp Pulse Resp B/P (MAP) Pulse Ox O2 Delivery O2 Flow Rate FiO2 09/12/17 08:27 96 20 98 Room Air 21 09/12/17 08:17 96 20 97 Room Air 09/12/17 07:46 101 09/12/17 04:00 99 20 98 Room Air 21 09/12/17 04:00 101 09/12/17 04:00 97.2 98 20 138/99 99 09/12/17 03:30 94 20 95 Room Air 09/12/17 00:00 97.0 95 18 139/83 100 09/12/17 00:00 95 09/11/17 22:25 98 20 99 Room Air 09/11/17 22:20 99 20 97 Room Air 21 09/11/17 20:00 97.5 100 20 124/79 95 09/11/17 20:00 102 09/11/17 18:35 100 20 100 Room Air 09/11/17 18:30 102 20 96 Room Air 21 09/11/17 16:00 98.4 101 19 128/79 95 09/11/17 16:00 101 09/11/17 15:37 98 22 97 Nasal Cannula 2.0 09/11/17 15:28 99 20 93 Room Air 21 09/11/17 12:00 100 09/11/17 12:00 98.4 103 19 127/78 95 09/11/17 11:52 92 20 98 Nasal Cannula 2.0 09/11/17 11:52 28 09/11/17 11:40 88 20 95 Nasal Cannula 2.0 28 Intake and Output 09/11/17 09/12/17 19:00 07:00 Intake Total 960 ml 240 ml Balance 960 ml 240 ml Intake Oral 960 ml 240 ml # Voids 5 2 General Appearance: no acute distress HEENT: normocephalic Respiratory/Chest: chest wall non-tender, decreased breath sounds Cardiovascular: normal peripheral pulses, normal rate Laboratory Tests 09/11/17 12:15: Stool Occult Blood [Pending] Current Medications Medications (Trade) Dose Ordered Sig/Debbie Route PRN Reason Start Time Stop Time Status Last Admin Dose Admin Acetaminophen (Tylenol) 650 mg Q4H PRN ORAL Mild Pain (Pain Scale 1-3) 09/08/17 13:00 10/08/17 12:59 09/09/17 00:03 Albuterol/ Ipratropium (Albuterol/ Ipratropium) 3 ml Q2H PRN HHN Shortness of Breath 09/08/17 13:00 09/13/17 12:59 Albuterol/ Ipratropium (Albuterol/ Ipratropium) 3 ml Q4HRT HHN 09/08/17 14:00 09/13/17 13:59 09/12/17 08:17 Aspirin (ASA) 81 mg DAILY ORAL 09/09/17 09:00 10/09/17 08:59 09/12/17 08:19 Azithromycin (Zithromax) 250 mg DAILY ORAL 09/09/17 13:30 09/13/17 08:59 09/12/17 08:19 Calcium Carbonate (Calcium Carbonate) 650 mg THREE TIMES A DAY ORAL 09/08/17 18:00 10/08/17 17:59 09/12/17 08:19 Cefepime HCl 2 gm/ Dextrose 55 ml @ 110 mls/hr EVERY 12 HOURS IVPB 09/08/17 16:30 09/15/17 16:29 09/12/17 08:18 Dextrose (Dextrose 50%) STAT PRN IV Hypoglycemia 09/08/17 13:15 10/08/17 13:14 Enoxaparin Sodium (Lovenox) 90 mg EVERY 12 HOURS SUBQ 09/10/17 21:00 10/10/17 20:59 09/11/17 21:33 Insulin Aspart (NovoLOG) BEFORE MEALS AND HS SUBQ 09/08/17 16:30 10/08/17 16:29 09/12/17 06:30 Insulin Detemir (Levemir) 10 units BID SUBQ 09/12/17 21:00 10/12/17 20:59 Methylprednisolone Sodium Succinate (Solu-MEDROL) 40 mg BID IVP 09/11/17 18:00 10/09/17 17:59 09/12/17 08:19 Ondansetron HCl (Zofran) 4 mg Q6H PRN IVP Nausea & Vomiting 09/08/17 13:00 10/08/17 12:59 Pantoprazole (Protonix) 40 mg DAILY ORAL 09/09/17 09:00 10/09/17 08:59 09/12/17 08:19 Vancomycin HCl (Vanco rx to dose) 1 ea DAILY PRN MISC Per rx protocol 09/08/17 15:15 10/08/17 15:14 Vancomycin/Sodium Chloride 250 ml @ 166.667 mls/hr Q8H IVPB 09/11/17 14:00 09/14/17 13:59 09/12/17 06:45 Larry Brody MD Sep 12, 2017 09:21
[2017-09-12] MEDS: Enoxaparin Sodium 300mg/3ml vial SUBQ SCH ×2 (09:53→21:32)
[2017-09-12 12:00] VITALS: BP 122/77
--- NOTE | 2017-09-12 12:05 | Infectious Diseases Prog Note ---
Assessment/Plan Problems: (1) Pneumonia Assessment & Plan: improving on Zithromax , vancomycin and cefepime , pending sputum culture (2) UTI (urinary tract infection) Assessment & Plan: on cefepime empirically , culture of the urine showed gram positive organisms , most likely contaminant (3) COPD exacerbation Assessment & Plan: continue antibiotics, inhalers and oxygen as needed , please taper steroids (4) Severe sepsis Assessment & Plan: due to the above, with elevated WBC today , suspect due to steroids, will continue vancomycin with cefepime for now pending culture results , recommend to taper steroids (5) Diabetes mellitus Assessment & Plan: recommend tight glycemic control to keep blood glucose between 80-120 (6) Left leg DVT Assessment & Plan: continue anticoagulation , and to keep leg elevated while in bed Subjective Constitutional: Reports: no symptoms HEENT: Reports: no symptoms Respiratory: Reports: dry cough, other - wheezing Breasts: Reports: no symptoms Cardiovascular: Reports: no symptoms Gastrointestinal/Abdominal: Reports: no symptoms Genitourinary: Reports: no symptoms Neurologic: Reports: no symptoms Psychiatric: Reports: no symptoms Skin: Reports: no symptoms Endocrine: Reports: no symptoms Hematologic: Reports: no symptoms Musculoskeletal: Reports: no symptoms Allergies: Coded Allergies: No Known Allergies (Unverified , 01/02/15) Objective Vital Signs Last 24 Hour Vital Signs Date Time Temp Pulse Resp B/P (MAP) Pulse Ox O2 Delivery O2 Flow Rate FiO2 09/12/17 11:55 100 20 95 Room Air 21 09/12/17 08:27 96 20 98 Room Air 21 09/12/17 08:17 96 20 97 Room Air 09/12/17 08:00 97.0 97 20 131/88 99 09/12/17 07:46 101 09/12/17 04:00 99 20 98 Room Air 21 09/12/17 04:00 101 09/12/17 04:00 97.2 98 20 138/99 99 09/12/17 03:30 94 20 95 Room Air 09/12/17 00:00 97.0 95 18 139/83 100 09/12/17 00:00 95 09/11/17 22:25 98 20 99 Room Air 09/11/17 22:20 99 20 97 Room Air 21 09/11/17 20:00 97.5 100 20 124/79 95 09/11/17 20:00 102 09/11/17 18:35 100 20 100 Room Air 09/11/17 18:30 102 20 96 Room Air 21 09/11/17 16:00 98.4 101 19 128/79 95 09/11/17 16:00 101 09/11/17 15:37 98 22 97 Nasal Cannula 2.0 28 09/11/17 15:28 99 20 93 Room Air 21 Height (Feet): 5 Height (Inches): 4.00 Weight (Pounds): 195 General Appearance: WD/WN, no acute distress HEENT: normocephalic, atraumatic, anicteric, mucous membranes moist, PERRL, EOMI, pharynx normal, supple, no JVD Respiratory/Chest: chest wall non-tender, no respiratory distress, no accessory muscle use, decreased breath sounds, expiratory wheezing Cardiovascular: normal peripheral pulses, normal rate, regular rhythm, no gallop/murmur, no JVD Abdomen: normal bowel sounds, soft, non tender, no organomegaly, non distended , no mass, no scars Extremities: no cyanosis, no clubbing Skin: no rash, no lesions, no ulcers Neurologic/Psychiatric: alert, oriented x 3, responsive Lymphatic: no neck adenopathy, no groin adenopathy Laboratory Tests Test 09/11/17 12:15 Stool Occult Blood Negative (NEGATIVE) Current Medications Medications (Trade) Dose Ordered Sig/Debbie Route PRN Reason Start Time Stop Time Status Last Admin Dose Admin Acetaminophen (Tylenol) 650 mg Q4H PRN ORAL Mild Pain (Pain Scale 1-3) 09/08/17 13:00 10/08/17 12:59 09/09/17 00:03 Albuterol/ Ipratropium (Albuterol/ Ipratropium) 3 ml Q2H PRN HHN Shortness of Breath 09/08/17 13:00 09/13/17 12:59 Albuterol/ Ipratropium (Albuterol/ Ipratropium) 3 ml Q4HRT HHN 09/08/17 14:00 09/13/17 13:59 09/12/17 11:54 Aspirin (ASA) 81 mg DAILY ORAL 09/09/17 09:00 10/09/17 08:59 09/12/17 08:19 Azithromycin (Zithromax) 250 mg DAILY ORAL 09/09/17 13:30 09/13/17 08:59 09/12/17 08:19 Calcium Carbonate (Calcium Carbonate) 650 mg THREE TIMES A DAY ORAL 09/08/17 18:00 10/08/17 17:59 09/12/17 08:19 Cefepime HCl 2 gm/ Dextrose 55 ml @ 110 mls/hr EVERY 12 HOURS IVPB 09/08/17 16:30 09/15/17 16:29 09/12/17 08:18 Dextrose (Dextrose 50%) STAT PRN IV Hypoglycemia 09/08/17 13:15 10/08/17 13:14 Enoxaparin Sodium (Lovenox) 90 mg EVERY 12 HOURS SUBQ 09/10/17 21:00 10/10/17 20:59 09/12/17 09:53 Furosemide (Lasix) 40 mg DAILY ORAL 09/13/17 09:00 10/13/17 08:59 Insulin Aspart (NovoLOG) BEFORE MEALS AND HS SUBQ 09/08/17 16:30 10/08/17 16:29 09/12/17 11:19 Insulin Detemir (Levemir) 10 units BID SUBQ 09/12/17 21:00 10/12/17 20:59 Lisinopril (Prinivil) 20 mg DAILY ORAL 09/12/17 11:45 10/12/17 11:44 Methylprednisolone Sodium Succinate (Solu-MEDROL) 40 mg BID IVP 09/11/17 18:00 10/09/17 17:59 09/12/17 08:19 Ondansetron HCl (Zofran) 4 mg Q6H PRN IVP Nausea & Vomiting 09/08/17 13:00 10/08/17 12:59 Pantoprazole (Protonix) 40 mg DAILY ORAL 09/09/17 09:00 10/09/17 08:59 09/12/17 08:19 Vancomycin HCl (Vanco rx to dose) 1 ea DAILY PRN MISC Per rx protocol 09/08/17 15:15 10/08/17 15:14 Vancomycin/Sodium Chloride 250 ml @ 166.667 mls/hr Q8H IVPB 09/11/17 14:00 09/14/17 13:59 09/12/17 06:45 Billy Roblero M.D. Sep 12, 2017 12:05
[2017-09-12] MEDS: Lisinopril 20mg tab ORAL SCH (13:12)
[2017-09-12 15:44] VITALS: BP 133/97
--- NOTE | 2017-09-12 16:12 | Diagnostic Imaging Report ---
Indication: Dyspnea Comparison: 09/08/2017 A single view chest radiograph was obtained. Findings: There is enlargement of the cardiac silhouette with pulmonary vascular redistribution and prominence, hazy vessel margins and the suggestion of interstitial edema consistent with CHF. Bones are unremarkable. IMPRESSION: CHF/interstitial edema
--- NOTE | 2017-09-12 16:30 | Progress Note ---
DATE: 09/12/2017 CARDIOLOGY PROGRESS NOTE SUBJECTIVE: The patient still is congested and short of breath. Echocardiogram revealed severe left ventricular systolic dysfunction with ejection fraction of less than 35%. OBJECTIVE: VITAL SIGNS: Blood pressure 131/88, pulse 97, respirations 20, and afebrile. LUNGS: Bilateral rales. Few rhonchi. HEART: Regular rhythm and rate. Normal S1, paradoxically split S2. Trace edema. Monitored sinus with nonsustained ventricular tachycardia episode, less frequent over the past two days. LABORATORY AND DIAGNOSTIC DATA: Natriuretic peptide yesterday was 9400. IMPRESSION: 1. Cardiomyopathy, likely hypertensive with systolic dysfunction and acute congestive heart failure. 2. Chronic obstructive pulmonary disease exacerbation. 3. Nonsustained ventricular tachycardia. PLAN: Add CINTHYA inhibitor therapy and titrate. Diuresis. Trend natriuretic peptide assay. Once stable clinically, we would pursue ischemia workup and consider the patient for defibrillator long-term for primary prevention if no reversible ischemia found. Chad Oviedo M.D. DR: CHELSEY JOB#: [id number] CC:
[2017-09-12 20:00] VITALS: BP 146/88
[2017-09-12] MEDS: Levemir Flexpen SUBQ SCH (21:34)
--- NOTE | 2017-09-12 22:15 | Progress Note ---
DATE: 09/12/2017 SUBJECTIVE: This is a young 61-year-old, female, who is currently awake and comfortable. Short of breath is improving. OBJECTIVE: VITAL SIGNS: Blood pressure is 130/70, pulse 60, and respirations 18. No fever. CHEST: Bilateral few crackles. CARDIOVASCULAR: Regular rhythm. No gallop. No murmur. ABDOMEN: Soft. EXTREMITIES: CCE. NEUROLOGICAL: No focal deficit. ASSESSMENT: 1. Acute chronic obstructive pulmonary disease. 2. Hypertension. 3. Obesity. PLAN: Continue steroid. Bronchodilator treatments. PT and OT. Melvin Self M.D. DR: PAT JOB#: [id number] CC:
--- NOTE | 2017-09-12 23:22 | General Progress Note ---
Assessment/Plan Assessment/Plan ASSESSMENT AND RECOMMENDATIONS: 1. Leukocytosis, likely secondary to underlying methylprednisolone use in addition to infection. ID following 2. Chronic obstructive pulmonary disease exacerbation. Continue antibiotics, inhaler, and oxygen. 3. Pneumonia complicated by sepsis. Continue antibiotics as per Dr. Roblero. 4. Diabetes mellitus with tight glucose control. Keep glucose [id number] to 120. 5. Left leg DVT, continue anticoagulation 6. Sepsis Subjective Hematologic/Lymphatic: Reports: anemia Allergies: Coded Allergies: No Known Allergies (Unverified , 01/02/15) All Systems: reviewed and negative except above Subjective afebrile Objective Last 24 Hour Vital Signs Date Time Temp Pulse Resp B/P (MAP) Pulse Ox O2 Delivery O2 Flow Rate FiO2 09/12/17 22:56 95 18 100 Room Air 21 09/12/17 22:47 91 18 96 Room Air 21 09/12/17 20:00 98.1 100 20 146/88 95 Room Air 09/12/17 19:06 97 18 100 Room Air 09/12/17 19:01 94 18 96 Room Air 21 09/12/17 15:52 95 09/12/17 15:50 98 20 98 Nasal Cannula 2.0 28 09/12/17 15:44 98 20 98 Room Air 21 09/12/17 15:44 97.2 120 18 133/97 95 Room Air 09/12/17 13:12 122/77 09/12/17 12:08 100 20 98 Nasal Cannula 28 09/12/17 12:04 96 09/12/17 12:00 97.0 97 18 122/77 99 Room Air 09/12/17 11:55 100 20 95 Room Air 21 09/12/17 08:27 96 20 98 Room Air 21 09/12/17 08:17 96 20 97 Room Air 21 09/12/17 08:00 97.0 97 20 131/88 99 09/12/17 07:46 101 09/12/17 04:00 99 20 98 Room Air 21 09/12/17 04:00 101 09/12/17 04:00 97.2 98 20 138/99 99 09/12/17 03:30 94 20 95 Room Air 21 09/12/17 00:00 97.0 95 18 139/83 100 09/12/17 00:00 95 Intake and Output 09/11/17 09/12/17 19:00 07:00 Intake Total 960 ml 240 ml Balance 960 ml 240 ml Intake Oral 960 ml 240 ml # Voids 5 2 Laboratory Tests 09/12/17 13:40: Vancomycin Level Trough 15.4H Height (Feet): 5 Height (Inches): 4.00 Weight (Pounds): 195 General Appearance: no apparent distress EENT: normal ENT inspection Neck: normal alignment Cardiovascular: normal peripheral pulses Extremities: normal range of motion Skin: normal pigmentation Bayron Moran Sep 12, 2017 23:22
--- NOTE | 2017-09-12 23:43 | Nephrology Progress Note ---
Assessment/Plan Problem List: (1) COPD exacerbation (2) Diabetes mellitus (3) Chest pain (4) ACS (acute coronary syndrome) (5) Leukocytosis Assessment: due to steroids. Plan abx per ID. resp care per pulm taper steroids soon. monitor labs. cardio following. monitor renal function. Subjective Subjective Still congested. Objective Objective Last 24 Hour Vital Signs Date Time Temp Pulse Resp B/P (MAP) Pulse Ox O2 Delivery O2 Flow Rate FiO2 09/12/17 22:56 95 18 100 Room Air 21 09/12/17 22:47 91 18 96 Room Air 21 09/12/17 20:00 98.1 100 20 146/88 95 Room Air 09/12/17 20:00 103 09/12/17 19:06 97 18 100 Room Air 21 09/12/17 19:01 94 18 96 Room Air 21 09/12/17 15:52 95 09/12/17 15:50 98 20 98 Nasal Cannula 2.0 28 09/12/17 15:44 98 20 98 Room Air 21 09/12/17 15:44 97.2 120 18 133/97 95 Room Air 09/12/17 13:12 122/77 09/12/17 12:08 100 20 98 Nasal Cannula 28 09/12/17 12:04 96 09/12/17 12:00 97.0 97 18 122/77 99 Room Air 09/12/17 11:55 100 20 95 Room Air 09/12/17 08:27 96 20 98 Room Air 21 09/12/17 08:17 96 20 97 Room Air 21 09/12/17 08:00 97.0 97 20 131/88 99 09/12/17 07:46 101 09/12/17 04:00 99 20 98 Room Air 21 09/12/17 04:00 101 09/12/17 04:00 97.2 98 20 138/99 99 09/12/17 03:30 94 20 95 Room Air 09/12/17 00:00 97.0 95 18 139/83 100 09/12/17 00:00 95 Intake and Output 09/11/17 09/12/17 19:00 07:00 Intake Total 960 ml 240 ml Balance 960 ml 240 ml Intake Oral 960 ml 240 ml # Voids 5 2 Laboratory Tests 09/12/17 13:40: Vancomycin Level Trough 15.4H Height (Feet): 5 Height (Inches): 4.00 Weight (Pounds): 195 General Appearance: no apparent distress Cardiovascular: normal rate, regular rhythm Respiratory/Chest: decreased breath sounds, crackles/rales Abdomen: non tender, soft Extremities: trace edema Neurologic: alert AMRITA COATES Sep 12, 2017 23:43
[2017-09-13] VITALS: BP 127/88
[2017-09-13 04:00] VITALS: BP 134/74
[2017-09-13] MEDS: Albuterol/Ipratropium 3ml neb HHN SCH ×3 (04:37→10:37)
[2017-09-13] MEDS: NovoLOG Insulin Flexpen SUBQ SCH ×4 (06:02→21:30)
[2017-09-13] MEDS: Vancomycin 750mg/NS 250ml IVPB SCH ×2 (06:03→13:12)
--- NOTE | 2017-09-13 06:54 | Pulmonology Progress Note ---
Assessment/Plan Assessment/Plan 1. Chronic obstructive pulmonary disease exacerbation. 2. Urinary tract infection. 3. Leukocytosis. 4. Chest pain, rule out acute coronary syndrome. 5. Hypertension. 6. Diabetes. 7. Shortness of breath. 8. Weakness, generalized. PLAN: Continue DuoNeb Continue steroids and antibiotics. O2. monitor WBC Subjective Respiratory: Reports: shortness of breath, wheezing Allergies: Coded Allergies: No Known Allergies (Unverified , 01/02/15) Objective Last 24 Hour Vital Signs Date Time Temp Pulse Resp B/P (MAP) Pulse Ox O2 Delivery O2 Flow Rate FiO2 09/13/17 04:00 97.0 98 20 134/74 97 Room Air 09/13/17 04:00 92 09/13/17 03:26 101 18 99 Room Air 09/13/17 03:12 99 18 99 Room Air 21 09/13/17 00:00 98.4 98 20 127/88 99 Room Air 09/13/17 00:00 97 09/12/17 22:56 95 18 100 Room Air 09/12/17 22:47 91 18 96 Room Air 21 09/12/17 20:00 98.1 100 20 146/88 95 Room Air 09/12/17 20:00 103 09/12/17 19:06 97 18 100 Room Air 09/12/17 19:01 94 18 96 Room Air 21 09/12/17 15:52 95 09/12/17 15:50 98 20 98 Nasal Cannula 2.0 28 09/12/17 15:44 98 20 98 Room Air 21 09/12/17 15:44 97.2 120 18 133/97 95 Room Air 09/12/17 13:12 122/77 09/12/17 12:08 100 20 98 Nasal Cannula 28 09/12/17 12:04 96 09/12/17 12:00 97.0 97 18 122/77 99 Room Air 09/12/17 11:55 100 20 95 Room Air 21 09/12/17 08:27 96 20 98 Room Air 21 09/12/17 08:17 96 20 97 Room Air 21 09/12/17 08:00 97.0 97 20 131/88 99 09/12/17 07:46 101 Intake and Output 09/12/17 09/13/17 19:00 07:00 Intake Total 1163.334 ml Balance 1163.334 ml Intake Oral 720 ml IV Total 443.334 ml # Voids 3 General Appearance: no acute distress Respiratory/Chest: decreased breath sounds, expiratory wheezing Cardiovascular: normal rate Laboratory Tests 09/12/17 13:40: Vancomycin Level Trough 15.4H Current Medications Medications (Trade) Dose Ordered Sig/Debbie Route PRN Reason Start Time Stop Time Status Last Admin Dose Admin Acetaminophen (Tylenol) 650 mg Q4H PRN ORAL Mild Pain (Pain Scale 1-3) 09/08/17 13:00 10/08/17 12:59 09/12/17 22:42 Albuterol/ Ipratropium (Albuterol/ Ipratropium) 3 ml Q2H PRN HHN Shortness of Breath 09/08/17 13:00 09/13/17 12:59 Albuterol/ Ipratropium (Albuterol/ Ipratropium) 3 ml Q4HRT HHN 09/08/17 14:00 09/13/17 13:59 09/13/17 04:37 Aspirin (ASA) 81 mg DAILY ORAL 09/09/17 09:00 10/09/17 08:59 09/12/17 08:19 Azithromycin (Zithromax) 250 mg DAILY ORAL 09/09/17 13:30 09/13/17 08:59 09/12/17 08:19 Calcium Carbonate (Calcium Carbonate) 650 mg THREE TIMES A DAY ORAL 09/08/17 18:00 10/08/17 17:59 09/12/17 17:07 Cefepime HCl 2 gm/ Dextrose 55 ml @ 110 mls/hr EVERY 12 HOURS IVPB 09/08/17 16:30 09/15/17 16:29 09/12/17 21:33 Dextrose (Dextrose 50%) STAT PRN IV Hypoglycemia 09/08/17 13:15 10/08/17 13:14 Enoxaparin Sodium (Lovenox) 90 mg EVERY 12 HOURS SUBQ 09/10/17 21:00 10/10/17 20:59 09/12/17 21:32 Furosemide (Lasix) 40 mg DAILY ORAL 09/13/17 09:00 10/13/17 08:59 Insulin Aspart (NovoLOG) BEFORE MEALS AND HS SUBQ 09/08/17 16:30 10/08/17 16:29 09/13/17 06:02 Insulin Detemir (Levemir) 10 units BID SUBQ 09/12/17 21:00 10/12/17 20:59 09/12/17 21:34 Lisinopril (Prinivil) 20 mg DAILY ORAL 09/12/17 11:45 10/12/17 11:44 09/12/17 13:12 Methylprednisolone Sodium Succinate (Solu-MEDROL) 40 mg BID IVP 09/11/17 18:00 10/09/17 17:59 09/12/17 17:07 Ondansetron HCl (Zofran) 4 mg Q6H PRN IVP Nausea & Vomiting 09/08/17 13:00 10/08/17 12:59 Pantoprazole (Protonix) 40 mg DAILY ORAL 09/09/17 09:00 10/09/17 08:59 09/12/17 08:19 Vancomycin HCl (Vanco rx to dose) 1 ea DAILY PRN MISC Per rx protocol 09/08/17 15:15 10/08/17 15:14 Vancomycin/Sodium Chloride 250 ml @ 166.667 mls/hr Q8H IVPB 09/11/17 14:00 09/14/17 13:59 09/13/17 06:03 IKE ORDONEZ Sep 13, 2017 06:54
[2017-09-13 08:08] VITALS: BP 140/80
[2017-09-13] MEDS: Calcium Carbonate 650mg Tab ORAL SCH ×3 (08:18→18:34)
[2017-09-13] MEDS: Cefepime HCl 2 GM in D5W 55 ML IVPB SCH ×2 (08:18→21:25)
[2017-09-13] MEDS: Aspirin Baby 81mg ORAL SCH (08:18)
[2017-09-13] MEDS: Solu-MEDROL 40mg Inj IVP SCH (08:19)
[2017-09-13] MEDS: Levemir Flexpen SUBQ SCH ×2 (08:21→17:09)
[2017-09-13] MEDS ORDERED: Furosemide 40mg tab ORAL SCH (09:00)
[2017-09-13] MEDS: Lisinopril 20mg tab ORAL SCH (09:30)
[2017-09-13] MEDS: Enoxaparin Sodium 300mg/3ml vial SUBQ SCH ×2 (10:05→21:28)
[2017-09-13 11:50] VITALS: BP 135/83
--- NOTE | 2017-09-13 12:45 | Nephrology Progress Note ---
Assessment/Plan Problem List: (1) Chest pain (2) ACS (acute coronary syndrome) (3) Leukocytosis (4) HTN (hypertension) (5) CHF (congestive heart failure) (6) Anxiety (7) UTI (urinary tract infection) (8) COPD exacerbation (9) Severe sepsis (10) Diabetes mellitus Plan Will continue current treatment plan Monitor lites, correct prn' Continue abx per ID Continue neb treatment O2 prn Daily PPI DVT prophylaxis AM labs Subjective Constitutional: Denies: no symptoms, chills, diaphoresis, fever, malaise, weakness, other HEENT: Denies: no symptoms, eye pain, blurred vision, tearing, double vision, ear pain, ear discharge, nose pain, nose congestion, throat pain, throat swelling, mouth pain, mouth swelling, other Genitourinary: Denies: no symptoms, burning, discharge, frequency, flank pain, hematuria, incontinence, pain, urgency, other Neurologic/Psychiatric: Denies: no symptoms, anxiety, depressed, emotional problems, headache, numbness, paresthesia, pre-existing deficit, seizure, tingling, tremors, weakness, other Subjective In no distress, on tkhe phone, in no apparent distress. Objective Objective Last 24 Hour Vital Signs Date Time Temp Pulse Resp B/P (MAP) Pulse Ox O2 Delivery O2 Flow Rate FiO2 09/13/17 11:50 97.8 101 20 135/83 97 Room Air 09/13/17 10:41 98 18 100 Room Air 09/13/17 10:38 99 18 95 Room Air 09/13/17 09:30 140/80 09/13/17 08:36 97 09/13/17 08:08 97.0 94 20 140/80 97 Room Air 09/13/17 07:40 96 18 99 Room Air 09/13/17 07:37 97 18 97 Room Air 09/13/17 04:00 97.0 98 20 134/74 97 Room Air 09/13/17 04:00 92 09/13/17 03:26 101 18 99 Room Air 09/13/17 03:12 99 18 99 Room Air 09/13/17 00:00 98.4 98 20 127/88 99 Room Air 09/13/17 00:00 97 09/12/17 22:56 95 18 100 Room Air 09/12/17 22:47 91 18 96 Room Air 21 09/12/17 20:00 98.1 100 20 146/88 95 Room Air 09/12/17 20:00 103 09/12/17 19:06 97 18 100 Room Air 21 09/12/17 19:01 94 18 96 Room Air 21 09/12/17 15:52 95 09/12/17 15:50 98 20 98 Nasal Cannula 2.0 28 09/12/17 15:44 98 20 98 Room Air 21 09/12/17 15:44 97.2 120 18 133/97 95 Room Air 09/12/17 13:12 122/77 Intake and Output 09/12/17 09/13/17 18:59 06:59 Intake Total 1163.334 ml 500 ml Balance 1163.334 ml 500 ml Intake Oral 720 ml 500 ml IV Total 443.334 ml # Voids 3 Laboratory Tests 09/12/17 13:40: Vancomycin Level Trough 15.4H Height (Feet): 5 Height (Inches): 4.00 Weight (Pounds): 195 General Appearance: no apparent distress, alert EENT: normal ENT inspection Neck: normal alignment, supple Cardiovascular: normal rate, regular rhythm Respiratory/Chest: no respiratory distress Abdomen: soft, no organomegaly Extremities: non-tender, normal inspection, no calf tenderness Neurologic: alert, oriented x 3, responsive, normal mood/affect Pao Healy N.P. Sep 13, 2017 12:44
--- NOTE | 2017-09-13 15:07 | Infectious Diseases Prog Note ---
Assessment/Plan Problems: (1) Pneumonia Assessment & Plan: improving on Zithromax , vancomycin and cefepime , pending sputum culture (2) UTI (urinary tract infection) Assessment & Plan: on cefepime empirically , culture of the urine showed gram positive organisms , most likely contaminant (3) COPD exacerbation Assessment & Plan: continue antibiotics, inhalers and oxygen as needed , please taper steroids (4) Severe sepsis Assessment & Plan: due to the above, with elevated WBC today , suspect due to steroids, will continue vancomycin with cefepime for now pending culture results , recommend to taper steroids (5) Diabetes mellitus Assessment & Plan: recommend tight glycemic control to keep blood glucose between 80-120 (6) Left leg DVT Assessment & Plan: continue anticoagulation , and to keep leg elevated while in bed Subjective Constitutional: Reports: no symptoms HEENT: Reports: no symptoms Respiratory: Reports: dry cough, other - wheezing Breasts: Reports: no symptoms Cardiovascular: Reports: no symptoms Gastrointestinal/Abdominal: Reports: no symptoms Genitourinary: Reports: no symptoms Neurologic: Reports: no symptoms Psychiatric: Reports: no symptoms Skin: Reports: no symptoms Endocrine: Reports: no symptoms Hematologic: Reports: no symptoms Musculoskeletal: Reports: no symptoms Allergies: Coded Allergies: No Known Allergies (Unverified , 01/02/15) Objective Vital Signs Last 24 Hour Vital Signs Date Time Temp Pulse Resp B/P (MAP) Pulse Ox O2 Delivery O2 Flow Rate FiO2 09/13/17 12:00 95 09/13/17 11:50 97.8 101 20 135/83 97 Room Air 09/13/17 10:41 98 18 100 Room Air 09/13/17 10:38 99 18 95 Room Air 09/13/17 09:30 140/80 09/13/17 08:36 97 09/13/17 08:08 97.0 94 20 140/80 97 Room Air 09/13/17 07:40 96 18 99 Room Air 09/13/17 07:37 97 18 97 Room Air 09/13/17 04:00 97.0 98 20 134/74 97 Room Air 09/13/17 04:00 92 09/13/17 03:26 101 18 99 Room Air 09/13/17 03:12 99 18 99 Room Air 09/13/17 00:00 98.4 98 20 127/88 99 Room Air 09/13/17 00:00 97 09/12/17 22:56 95 18 100 Room Air 21 09/12/17 22:47 91 18 96 Room Air 21 09/12/17 20:00 98.1 100 20 146/88 95 Room Air 09/12/17 20:00 103 09/12/17 19:06 97 18 100 Room Air 21 09/12/17 19:01 94 18 96 Room Air 21 09/12/17 15:52 95 09/12/17 15:50 98 20 98 Nasal Cannula 2.0 28 09/12/17 15:44 98 20 98 Room Air 21 09/12/17 15:44 97.2 120 18 133/97 95 Room Air Height (Feet): 5 Height (Inches): 4.00 Weight (Pounds): 195 General Appearance: WD/WN, no acute distress HEENT: normocephalic, atraumatic, anicteric, mucous membranes moist Respiratory/Chest: chest wall non-tender, no respiratory distress, no accessory muscle use, decreased breath sounds, expiratory wheezing Cardiovascular: normal peripheral pulses, normal rate, regular rhythm, no gallop/murmur, no JVD Abdomen: normal bowel sounds, soft, non tender, no organomegaly, non distended , no mass, no scars Extremities: no cyanosis, no clubbing Skin: no rash, no lesions, no ulcers Current Medications Medications (Trade) Dose Ordered Sig/Debbie Route PRN Reason Start Time Stop Time Status Last Admin Dose Admin Acetaminophen (Tylenol) 650 mg Q4H PRN ORAL Mild Pain (Pain Scale 1-3) 09/13/17 17:00 10/08/17 12:59 UNV Aspirin (ASA) 81 mg DAILY ORAL 09/14/17 09:00 10/09/17 08:59 UNV Calcium Carbonate (Calcium Carbonate) 650 mg THREE TIMES A DAY ORAL 09/13/17 18:00 10/08/17 17:59 UNV Cefepime HCl 2 gm/ Dextrose 55 ml @ 110 mls/hr EVERY 12 HOURS IVPB 09/13/17 21:00 09/15/17 16:29 UNV Dextrose (Dextrose 50%) STAT PRN IV Hypoglycemia 09/14/17 13:15 10/08/17 13:14 UNV Enoxaparin Sodium (Lovenox) 90 mg EVERY 12 HOURS SUBQ 09/13/17 21:00 10/10/17 20:59 UNV Furosemide (Lasix) 40 mg DAILY ORAL 09/14/17 09:00 10/13/17 08:59 UNV Insulin Aspart (NovoLOG) BEFORE MEALS AND HS SUBQ 09/13/17 16:30 10/08/17 16:29 UNV Insulin Detemir (Levemir) 10 units BID SUBQ 09/13/17 18:00 10/12/17 20:59 UNV Lisinopril (Prinivil) 20 mg DAILY ORAL 09/14/17 09:00 10/12/17 11:44 UNV Ondansetron HCl (Zofran) 4 mg Q6H PRN IVP Nausea & Vomiting 09/13/17 19:00 10/08/17 12:59 UNV Pantoprazole (Protonix) 40 mg DAILY ORAL 09/14/17 09:00 10/09/17 08:59 UNV Prednisone (predniSONE) 20 mg Q12HR ORAL 09/13/17 21:00 10/13/17 20:59 UNV Vancomycin HCl (Vanco rx to dose) 1 ea DAILY PRN MISC Per rx protocol 09/14/17 09:00 10/08/17 15:14 UNV Vancomycin/Sodium Chloride 250 ml @ 166.667 mls/hr Q8H IVPB 09/13/17 22:00 09/14/17 13:59 UNV Billy Roblero M.D. Sep 13, 2017 15:07
[2017-09-13 15:49] LABS: MEAN CORPUSCULAR HEMOGLOBIN 30.5 PG (27.0-31.0); MEAN CORPUSCULAR HGB CONC 30.2 G/DL (32.0-36.0); MEAN CORPUSCULAR VOLUME 101 FL (80-99); PLATELET COUNT 273 K/UL (150-450); RED BLOOD COUNT 4.45 M/UL (4.20-5.40); RED CELL DISTRIBUTION WIDTH 15.8 % (11.6-14.8); WHITE BLOOD COUNT 21.2 K/UL (4.8-10.8)
[2017-09-13 15:51] LABS: ALANINE AMINOTRANSFERASE 45 U/L (12-78); ALBUMIN/GLOBULIN RATIO 0.5 (1.0-2.7); ANION GAP 8 mmol/L (5-15); ASPARTATE AMINO TRANSFERASE 28 U/L (15-37); CALCIUM 7.2 MG/DL (8.5-10.1); CARBON DIOXIDE 25 MMOL/L (21-32); CHLORIDE 102 MMOL/L (98-107); CREATININE 1.1 MG/DL (0.55-1.30); GLOMERULAR FILTRATION RATE > 60 mL/min (>60); POTASSIUM 4.8 MMOL/L (3.5-5.1); SODIUM 135 MMOL/L (136-145); TOTAL PROTEIN 6.6 G/DL (6.4-8.2)
[2017-09-13 15:54] VITALS: BP 121/81
--- NOTE | 2017-09-13 17:19 | General Progress Note ---
Assessment/Plan Assessment/Plan ASSESSMENT AND RECOMMENDATIONS: 1. Leukocytosis, likely secondary to underlying methylprednisolone use in addition to sepsis. ID following 2. Chronic obstructive pulmonary disease exacerbation. Continue antibiotics, inhaler, and oxygen. 3. Pneumonia. Continue antibiotics as per Dr. Roblero. 4. UTI 5. Left leg DVT, continue anticoagulation Subjective Hematologic/Lymphatic: Reports: anemia Allergies: Coded Allergies: No Known Allergies (Unverified , 01/02/15) All Systems: reviewed and negative except above Subjective wbc decreased Objective Last 24 Hour Vital Signs Date Time Temp Pulse Resp B/P (MAP) Pulse Ox O2 Delivery O2 Flow Rate FiO2 09/13/17 15:54 98.8 94 20 121/81 97 09/13/17 12:00 95 09/13/17 11:50 97.8 101 20 135/83 97 Room Air 09/13/17 10:41 98 18 100 Room Air 21 09/13/17 10:38 99 18 95 Room Air 21 09/13/17 09:30 140/80 09/13/17 08:36 97 09/13/17 08:08 97.0 94 20 140/80 97 Room Air 09/13/17 07:40 96 18 99 Room Air 21 09/13/17 07:37 97 18 97 Room Air 21 09/13/17 04:00 97.0 98 20 134/74 97 Room Air 09/13/17 04:00 92 09/13/17 03:26 101 18 99 Room Air 21 09/13/17 03:12 99 18 99 Room Air 21 09/13/17 00:00 98.4 98 20 127/88 99 Room Air 09/13/17 00:00 97 09/12/17 22:56 95 18 100 Room Air 21 09/12/17 22:47 91 18 96 Room Air 21 09/12/17 20:00 98.1 100 20 146/88 95 Room Air 09/12/17 20:00 103 09/12/17 19:06 97 18 100 Room Air 21 09/12/17 19:01 94 18 96 Room Air 21 Intake and Output 09/12/17 09/13/17 19:00 07:00 Intake Total 1163.334 ml 500 ml Balance 1163.334 ml 500 ml Intake Oral 720 ml 500 ml IV Total 443.334 ml # Voids 3 Laboratory Tests 09/13/17 14:45: White Blood Count 21.2H, Red Blood Count 4.45, Hemoglobin 13.6, Hematocrit 44.9 , Mean Corpuscular Volume 101H, Mean Corpuscular Hemoglobin 30.5, Mean Corpuscular Hemoglobin Concent 30.2L, Red Cell Distribution Width 15.8H, Platelet Count 273, Mean Platelet Volume 6.0L, Neutrophils (%) (Auto) , Lymphocytes (%) (Auto) , Monocytes (%) (Auto) , Eosinophils (%) (Auto) , Basophils (%) (Auto) , Neutrophils % (Manual) [Pending], Lymphocytes % (Manual) [Pending], Platelet Estimate [Pending], Platelet Morphology [Pending], Sodium Level 135L, Potassium Level 4.8, Chloride Level 102, Carbon Dioxide Level 25, Anion Gap 8, Blood Urea Nitrogen 24H, Creatinine 1.1, Estimat Glomerular Filtration Rate > 60, Glucose Level 439H, Calcium Level 7.2L, Total Bilirubin 0.5, Aspartate Amino Transf (AST/SGOT) 28, Alanine Aminotransferase (ALT/SGPT) 45, Alkaline Phosphatase 97, Total Protein 6.6, Albumin 2.2L, Globulin 4.4, Albumin/Globulin Ratio 0.5L Height (Feet): 5 Height (Inches): 4.00 Weight (Pounds): 195 General Appearance: no apparent distress EENT: normal ENT inspection Neck: normal alignment Cardiovascular: normal peripheral pulses Abdomen: normal bowel sounds Edema: trace edema Bayron Moran Sep 13, 2017 17:19
[2017-09-13 17:22] LABS: ANISOCYTOSIS 1+; BAND NEUTROPHILS % (MANUAL) 0 % (0-8); BASOPHILS % (MANUAL) 0 % (0-2); EOSINOPHILS % (MANUAL) 0 % (0-3); HYPOCHROMASIA 1+; LYMPHOCYTES % (MANUAL) 4 % (20-45); NEUTROPHILS % (MANUAL) 93 % (45-75); PLATELET ESTIMATE ADEQUATE; PLATELET MORPHOLOGY NORMAL; TOTAL CELLS COUNTED 100
--- NOTE | 2017-09-13 17:30 | Progress Note ---
DATE: 09/13/2017 SUBJECTIVE: This is a 61 years old female, currently in bed, comfortable. No distress. OBJECTIVE: VITAL SIGNS: Blood pressure is 130/70, pulse 60, and respirations 18. No fever. CHEST: Bilateral few crackles. CARDIOVASCULAR: Regular rhythm. No gallop. No murmur. ABDOMEN: Soft. EXTREMITIES: CCE. ASSESSMENT: 1. Acute chronic obstructive pulmonary disease. 2. Hypertension. 3. Obesity. PLAN: Continue current treatment. Continue supportive treatment. Melvin Self M.D. DR: Jaden JOB#: [id number] CC:
--- NOTE | 2017-09-13 17:54 | Cardiac Electrophysiology PN ---
Subjective Subjective [id number].recurrent long runs of VT more than 24 beats in the setting of EF 25%. Needs transfer to [facility] for cardiac cath if insurance approves. Objective Last 24 Hour Vital Signs Date Time Temp Pulse Resp B/P (MAP) Pulse Ox O2 Delivery O2 Flow Rate FiO2 09/13/17 15:54 98.8 94 20 121/81 97 09/13/17 12:00 95 09/13/17 11:50 97.8 101 20 135/83 97 Room Air 09/13/17 10:41 98 18 100 Room Air 21 09/13/17 10:38 99 18 95 Room Air 21 09/13/17 09:30 140/80 09/13/17 08:36 97 09/13/17 08:08 97.0 94 20 140/80 97 Room Air 09/13/17 07:40 96 18 99 Room Air 21 09/13/17 07:37 97 18 97 Room Air 21 09/13/17 04:00 97.0 98 20 134/74 97 Room Air 09/13/17 04:00 92 09/13/17 03:26 101 18 99 Room Air 21 09/13/17 03:12 99 18 99 Room Air 21 09/13/17 00:00 98.4 98 20 127/88 99 Room Air 09/13/17 00:00 97 09/12/17 22:56 95 18 100 Room Air 21 09/12/17 22:47 91 18 96 Room Air 21 09/12/17 20:00 98.1 100 20 146/88 95 Room Air 09/12/17 20:00 103 09/12/17 19:06 97 18 100 Room Air 21 09/12/17 19:01 94 18 96 Room Air 21 Intake and Output 09/12/17 09/13/17 19:00 07:00 Intake Total 1163.334 ml 500 ml Balance 1163.334 ml 500 ml Intake Oral 720 ml 500 ml IV Total 443.334 ml # Voids 3 Laboratory Tests Test 09/13/17 14:45 White Blood Count 21.2 K/UL (4.8-10.8) H Red Blood Count 4.45 M/UL (4.20-5.40) Hemoglobin 13.6 G/DL (12.0-16.0) Hematocrit 44.9 % (37.0-47.0) Mean Corpuscular Volume 101 FL (80-99) H Mean Corpuscular Hemoglobin 30.5 PG (27.0-31.0) Mean Corpuscular Hemoglobin Concent 30.2 G/DL (32.0-36.0) L Red Cell Distribution Width 15.8 % (11.6-14.8) H Platelet Count 273 K/UL (150-450) Mean Platelet Volume 6.0 FL (6.5-10.1) L Neutrophils (%) (Auto) % (45.0-75.0) Lymphocytes (%) (Auto) % (20.0-45.0) Monocytes (%) (Auto) % (1.0-10.0) Eosinophils (%) (Auto) % (0.0-3.0) Basophils (%) (Auto) % (0.0-2.0) Differential Total Cells Counted 100 Neutrophils % (Manual) 93 % (45-75) H Lymphocytes % (Manual) 4 % (20-45) L Monocytes % (Manual) 3 % (1-10) Eosinophils % (Manual) 0 % (0-3) Basophils % (Manual) 0 % (0-2) Band Neutrophils 0 % (0-8) Platelet Estimate Adequate Platelet Morphology Normal Hypochromasia 1+ Anisocytosis 1+ Sodium Level 135 MMOL/L (136-145) L Potassium Level 4.8 MMOL/L (3.5-5.1) Chloride Level 102 MMOL/L (98-107) Carbon Dioxide Level 25 MMOL/L (21-32) Anion Gap 8 mmol/L (5-15) Blood Urea Nitrogen 24 mg/dL (7-18) H Creatinine 1.1 MG/DL (0.55-1.30) Estimat Glomerular Filtration Rate > 60 mL/min (>60) Glucose Level 439 MG/DL (74-106) H Calcium Level 7.2 MG/DL (8.5-10.1) L Total Bilirubin 0.5 MG/DL (0.2-1.0) Aspartate Amino Transf (AST/SGOT) 28 U/L (15-37) Alanine Aminotransferase (ALT/SGPT) 45 U/L (12-78) Alkaline Phosphatase 97 U/L (46-116) Total Protein 6.6 G/DL (6.4-8.2) Albumin 2.2 G/DL (3.4-5.0) L Globulin 4.4 g/dL Albumin/Globulin Ratio 0.5 (1.0-2.7) L RACHEL DING Sep 13, 2017 17:53
[2017-09-13 20:00] VITALS: BP 126/82
[2017-09-13] MEDS ORDERED: Albuterol/Ipratropium 3ml neb HHN PRN (20:00)
--- NOTE | 2017-09-13 20:15 | Consultation ---
DATE OF CONSULTATION: 09/13/2017 CARDIAC ELECTROPHYSIOLOGY CONSULTATION CONSULTING PHYSICIAN: Romaine Reed M.D. ATTENDING/REFERRING PHYSICIAN: Nba Oscar M.D. REASON FOR CONSULTATION: Ventricular tachycardia and severe cardiomyopathy. HISTORY OF PRESENT ILLNESS: The patient is a 61-year-old lady with history of hypertension, diabetes, and COPD, who presented to the emergency room with increasing shortness of breath of three days' duration. The patient also was complaining of left-sided chest pain. The patient states that she was admitted to [facility] about a month ago for the same problem and was recommended to see a physician as an outpatient, but she never sees anyone. The patient was admitted and underwent 2D echocardiogram that showed ejection fraction of only 20% to 25%. While she was on telemetry, it showed 24 beats of ventricular tachycardia as well. Cardiac electrophysiology consultation was requested for further evaluation. REVIEW OF SYSTEMS: Performed and was negative other than what was mentioned in history of present illness. PAST MEDICAL HISTORY: 1. Hypertension. 2. Diabetes. 3. COPD. MEDICATIONS: Per reconciliation. SOCIAL HISTORY: She lives at home. Does not smoke or drink alcohol or use any illicit drugs. FAMILY HISTORY: Noncontributory. PHYSICAL EXAMINATION: VITAL SIGNS: Blood pressure is now 121/81, pulse 94, respirations 20, and temperature 98.8. HEAD AND NECK: Shows mild JVD. LUNGS: Decreased breath sounds. CARDIOVASCULAR: Regular S1, S2 with no gallop. ABDOMEN: Soft. EXTREMITIES: A 1+ pitting edema. LABORATORY DATA: Initial white count was 23,000 and today it is 21.2, hemoglobin is 13.7, hematocrit 44.9, and platelet count 273,000. Sodium 135, potassium 4.8, BUN of 24, creatinine 1.1. Her BNP is 9419 and troponin was 0.045. ASSESSMENT AND PLAN: 1. Severe cardiomyopathy, ejection fraction of only 20% to 25%. On review of the patient's long runs of ventricular tachycardia, the patient would need cardiac catheterization for further evaluation of her coronary artery disease. We will try to transfer the patient to an outside facility if they accept her insurance. In the meantime, continue the patient on heart failure therapy including Lasix, lisinopril, Aldactone. At this time, avoid beta-andi in view of her severe steroid-dependent chronic obstructive pulmonary disease. 2. Hypertension. Continue Lasix and lisinopril. 3. Leukocytosis, likely with underlying methylprednisolone. 4. Chronic obstructive pulmonary disease, on antibiotic. 5. Deep venous thrombosis, on anticoagulation. Thank you very much, Dr. Oscar, for allowing me to participate in the care of this patient. Please do not hesitate to contact me for any questions regarding my evaluation. Romaine Reed M.D. DR: Analilia JOB#: [id number] CC:
[2017-09-13] MEDS: Vancomycin 750mg/NS 250ml 250 ML IVPB SCH (22:42)
[2017-09-14] VITALS: BP 135/95
[2017-09-14 04:55] VITALS: BP 126/78
[2017-09-14] MEDS: Vancomycin 750mg/NS 250ml 250 ML IVPB SCH (05:34)
[2017-09-14 05:56] LABS: MEAN CORPUSCULAR HEMOGLOBIN 30.8 PG (27.0-31.0); MEAN CORPUSCULAR HGB CONC 30.6 G/DL (32.0-36.0); MEAN CORPUSCULAR VOLUME 101 FL (80-99); MEAN PLATELET VOLUME 6.3 FL (6.5-10.1); PLATELET COUNT 305 K/UL (150-450); RED BLOOD COUNT 4.59 M/UL (4.20-5.40); RED CELL DISTRIBUTION WIDTH 15.6 % (11.6-14.8)
[2017-09-14] MEDS: NovoLOG Insulin Flexpen SUBQ SCH ×3 (06:22→18:13)
[2017-09-14 06:26] LABS: WHITE BLOOD COUNT 22.4 K/UL (4.8-10.8)
[2017-09-14 06:30] LABS: ANION GAP 7 mmol/L (5-15); CALCIUM 7.2 MG/DL (8.5-10.1); CARBON DIOXIDE 27 MMOL/L (21-32); CHLORIDE 104 MMOL/L (98-107); CREATININE 0.9 MG/DL (0.55-1.30); GLOMERULAR FILTRATION RATE > 60 mL/min (>60); POTASSIUM 4.7 MMOL/L (3.5-5.1); SODIUM 138 MMOL/L (136-145)
[2017-09-14 08:00] VITALS: BP 122/86
[2017-09-14] MEDS ORDERED: Aspirin Baby 81mg ORAL SCH (09:00)
[2017-09-14] MEDS ORDERED: Lisinopril 20mg tab ORAL SCH (09:00)
[2017-09-14] MEDS ORDERED: Furosemide 40mg tab ORAL SCH (09:00)
[2017-09-14] MEDS: Cefepime HCl 2 GM in D5W 55 ML IVPB SCH (09:01)
[2017-09-14] MEDS: Calcium Carbonate 650mg Tab ORAL SCH ×3 (09:01→18:12)
[2017-09-14] MEDS: Enoxaparin Sodium 300mg/3ml vial SUBQ SCH (09:04)
[2017-09-14] MEDS: Levemir Flexpen SUBQ SCH ×2 (09:11→18:13)
[2017-09-14 10:04] LABS: BAND NEUTROPHILS % (MANUAL) 5 % (0-8); BASOPHILS % (MANUAL) 0 % (0-2); EOSINOPHILS % (MANUAL) 0 % (0-3); LYMPHOCYTES % (MANUAL) 6 % (20-45); NEUTROPHILS % (MANUAL) 86 % (45-75); PLATELET ESTIMATE ADEQUATE; PLATELET MORPHOLOGY NORMAL; TOTAL CELLS COUNTED 100
[2017-09-14 10:05] LABS: ANISOCYTOSIS 1+; HYPOCHROMASIA 1+; MACROCYTES 1+
--- NOTE | 2017-09-14 10:47 | Diagnostic Imaging Report ---
APPROVED REPORT CPT Code: 18906 Present Symptoms Comments: Pain RIGHT LEG: Venous imaging reveals a patent deep venous system. There is no evidence of thrombus within the femoral, popliteal or tibial segments. The greater saphenous vein is also within normal limits. Doppler indicates normal spontaneous flow within these segments. LEFT LEG: Venous imaging reveals acute thrombus in the superficial femoral vein and popliteal vein. Remainder of the deep venous system is within normal limits. There is no evidence of thrombus within the common femoral, or tibial segments. The greater saphenous vein is also within normal limits. Doppler indicates normal spontaneous flow within these segments.
[2017-09-14 12:00] VITALS: BP 131/83
--- NOTE | 2017-09-14 15:20 | Infectious Diseases Prog Note ---
Assessment/Plan Problems: (1) Pneumonia Assessment & Plan: improving on vancomycin and cefepime , done with zithromax , await sputum culture , monitor CXR (2) UTI (urinary tract infection) Assessment & Plan: on cefepime empirically , culture of the urine showed gram positive organisms , most likely contaminant (3) COPD exacerbation Assessment & Plan: continue antibiotics, inhalers and oxygen as needed , please taper steroids (4) Severe sepsis Assessment & Plan: due to the above, with elevated WBC today , suspect due to steroids, will continue vancomycin with cefepime for now pending culture results , recommend to taper steroids (5) Diabetes mellitus Assessment & Plan: recommend tight glycemic control to keep blood glucose between 80-120 (6) Left leg DVT Assessment & Plan: continue anticoagulation , and to keep leg elevated while in bed (7) Ventricular arrhythmia Assessment & Plan: continue tele monitor cardiology is following Subjective Constitutional: Reports: no symptoms HEENT: Reports: no symptoms Respiratory: Reports: dry cough, other - wheezing Breasts: Reports: no symptoms Cardiovascular: Reports: palpitations Gastrointestinal/Abdominal: Reports: no symptoms Genitourinary: Reports: no symptoms Neurologic: Reports: no symptoms Psychiatric: Reports: no symptoms Skin: Reports: no symptoms Endocrine: Reports: no symptoms Hematologic: Reports: no symptoms Musculoskeletal: Reports: no symptoms Allergies: Coded Allergies: No Known Allergies (Unverified , 01/02/15) Objective Vital Signs Last 24 Hour Vital Signs Date Time Temp Pulse Resp B/P (MAP) Pulse Ox O2 Delivery O2 Flow Rate FiO2 09/14/17 12:00 97.3 70 18 131/83 95 Room Air 09/14/17 09:02 122/86 09/14/17 08:00 97.5 92 18 122/86 93 Room Air 09/14/17 04:55 97.8 92 18 126/78 97 Room Air 09/14/17 04:00 92 09/14/17 00:05 97 Room Air 09/14/17 00:00 97.7 94 18 135/95 96 Room Air 09/13/17 23:48 96 09/13/17 20:48 76 20 98 Nasal Cannula 2.0 09/13/17 20:40 36 09/13/17 20:40 87 18 96 Nasal Cannula 2.0 09/13/17 20:06 97 09/13/17 20:00 98.2 82 18 126/82 98 09/13/17 20:00 20 98 Nasal Cannula 2.0 09/13/17 15:54 98.8 94 20 121/81 97 Height (Feet): 5 Height (Inches): 4.00 Weight (Pounds): 195 General Appearance: WD/WN, no acute distress HEENT: normocephalic, atraumatic, anicteric, mucous membranes moist, PERRL, EOMI, pharynx normal, supple, no JVD Respiratory/Chest: chest wall non-tender, lungs clear, normal breath sounds, no respiratory distress, no accessory muscle use Cardiovascular: normal peripheral pulses, normal rate, regular rhythm, no gallop/murmur, no JVD Abdomen: normal bowel sounds, soft, non tender, no organomegaly, non distended , no mass, no scars Extremities: no cyanosis, no clubbing Skin: no rash, no lesions, no ulcers Neurologic/Psychiatric: alert, oriented x 3, responsive Lymphatic: no neck adenopathy, no groin adenopathy Laboratory Tests Test 09/14/17 05:40 White Blood Count 22.4 K/UL (4.8-10.8) *H Red Blood Count 4.59 M/UL (4.20-5.40) Hemoglobin 14.1 G/DL (12.0-16.0) Hematocrit 46.1 % (37.0-47.0) Mean Corpuscular Volume 101 FL (80-99) H Mean Corpuscular Hemoglobin 30.8 PG (27.0-31.0) Mean Corpuscular Hemoglobin Concent 30.6 G/DL (32.0-36.0) L Red Cell Distribution Width 15.6 % (11.6-14.8) H Platelet Count 305 K/UL (150-450) Mean Platelet Volume 6.3 FL (6.5-10.1) L Neutrophils (%) (Auto) % (45.0-75.0) Lymphocytes (%) (Auto) % (20.0-45.0) Monocytes (%) (Auto) % (1.0-10.0) Eosinophils (%) (Auto) % (0.0-3.0) Basophils (%) (Auto) % (0.0-2.0) Differential Total Cells Counted 100 Neutrophils % (Manual) 86 % (45-75) H Lymphocytes % (Manual) 6 % (20-45) L Monocytes % (Manual) 3 % (1-10) Eosinophils % (Manual) 0 % (0-3) Basophils % (Manual) 0 % (0-2) Band Neutrophils 5 % (0-8) Platelet Estimate Adequate Platelet Morphology Normal Hypochromasia 1+ Anisocytosis 1+ Macrocytosis 1+ Sodium Level 138 MMOL/L (136-145) Potassium Level 4.7 MMOL/L (3.5-5.1) Chloride Level 104 MMOL/L (98-107) Carbon Dioxide Level 27 MMOL/L (21-32) Anion Gap 7 mmol/L (5-15) Blood Urea Nitrogen 24 mg/dL (7-18) H Creatinine 0.9 MG/DL (0.55-1.30) Estimat Glomerular Filtration Rate > 60 mL/min (>60) Glucose Level 214 MG/DL (74-106) #H Calcium Level 7.2 MG/DL (8.5-10.1) L Current Medications Medications (Trade) Dose Ordered Sig/Debbie Route PRN Reason Start Time Stop Time Status Last Admin Dose Admin Acetaminophen (Tylenol) 650 mg Q4H PRN ORAL Mild Pain (Pain Scale 1-3) 09/13/17 17:00 10/08/17 12:59 Albuterol/ Ipratropium (Albuterol/ Ipratropium) 3 ml Q4H PRN HHN Shortness of Breath 09/13/17 20:00 09/18/17 19:59 09/13/17 20:43 Aspirin (ASA) 81 mg DAILY ORAL 09/14/17 09:00 10/09/17 08:59 09/14/17 09:01 Calcium Carbonate (Calcium Carbonate) 650 mg THREE TIMES A DAY ORAL 09/13/17 18:00 10/08/17 17:59 09/14/17 12:16 Cefepime HCl 2 gm/ Dextrose 55 ml @ 110 mls/hr EVERY 12 HOURS IVPB 09/13/17 21:00 09/15/17 16:29 09/14/17 09:01 Dextrose (Dextrose 50%) STAT PRN IV Hypoglycemia 09/14/17 13:15 10/08/17 13:14 Enoxaparin Sodium (Lovenox) 90 mg EVERY 12 HOURS SUBQ 09/13/17 21:00 10/10/17 20:59 09/14/17 09:04 Furosemide (Lasix) 40 mg DAILY ORAL 09/14/17 09:00 10/13/17 08:59 09/14/17 09:03 Insulin Aspart (NovoLOG) BEFORE MEALS AND HS SUBQ 09/13/17 16:30 10/08/17 16:29 09/14/17 12:21 Insulin Detemir (Levemir) 10 units BID SUBQ 09/13/17 18:00 10/12/17 20:59 09/14/17 09:11 Lisinopril (Prinivil) 20 mg DAILY ORAL 09/14/17 09:00 10/12/17 11:44 09/14/17 09:02 Ondansetron HCl (Zofran) 4 mg Q6H PRN IVP Nausea & Vomiting 09/13/17 19:00 10/08/17 12:59 Pantoprazole (Protonix) 40 mg DAILY ORAL 09/14/17 09:00 10/09/17 08:59 09/14/17 09:02 Prednisone (predniSONE) 20 mg Q12HR ORAL 09/13/17 21:00 10/13/17 20:59 09/14/17 09:03 Temazepam (Restoril) 15 mg HSPRN PRN ORAL Insomnia 09/13/17 21:15 09/20/17 21:14 09/13/17 21:25 Vancomycin HCl (Vanco rx to dose) 1 ea DAILY PRN MISC Per rx protocol 09/14/17 09:00 10/08/17 15:14 Billy Roblero M.D. Sep 14, 2017 15:20
[2017-09-14 16:00] VITALS: BP 126/88
--- NOTE | 2017-09-14 16:03 | Cardiac Electrophysiology PN ---
Assessment/Plan Assessment/Plan 1. Severe cardiomyopathy with ejection fraction of only 20% to 25%. On review of the patient's long runs of ventricular tachycardia, the patient would need cardiac catheterization for further evaluation of her coronary artery disease. Awaiting transfer the patient to [facility]. In the meantime, continue Lasix, lisinopril, Aldactone. At this time, avoid beta-andi in view of her severe steroid-dependent chronic obstructive pulmonary disease. 2. Hypertension. Continue Lasix and lisinopril. 3. Leukocytosis, likely with underlying methylprednisolone. 4. Chronic obstructive pulmonary disease, on antibiotic. 5. Deep venous thrombosis, on anticoagulation. ESTEFANY RN and director of casework department Subjective Subjective Awaiting transfer to [facility] for cardiac cath for recurrent long runs of VT more than 24 beats in the setting of EF 25%. Objective Last 24 Hour Vital Signs Date Time Temp Pulse Resp B/P (MAP) Pulse Ox O2 Delivery O2 Flow Rate FiO2 09/14/17 12:00 97.3 70 18 131/83 95 Room Air 09/14/17 09:02 122/86 09/14/17 08:00 97.5 92 18 122/86 93 Room Air 09/14/17 04:55 97.8 92 18 126/78 97 Room Air 09/14/17 04:00 92 09/14/17 00:05 97 Room Air 09/14/17 00:00 97.7 94 18 135/95 96 Room Air 09/13/17 23:48 96 09/13/17 20:48 76 20 98 Nasal Cannula 2.0 28 09/13/17 20:40 36 09/13/17 20:40 87 18 96 Nasal Cannula 2.0 09/13/17 20:06 97 09/13/17 20:00 98.2 82 18 126/82 98 09/13/17 20:00 20 98 Nasal Cannula 2.0 Neck: muscle spasm Intake and Output 09/13/17 09/14/17 19:00 07:00 Intake Total 350 ml 555.001 ml Output Total 300 ml Balance 350 ml 255.001 ml Intake Oral 240 ml IV Total 110 ml 555.001 ml Output Urine Total 300 ml # Bowel Movements 1 Laboratory Tests Test 09/14/17 05:40 White Blood Count 22.4 K/UL (4.8-10.8) *H Red Blood Count 4.59 M/UL (4.20-5.40) Hemoglobin 14.1 G/DL (12.0-16.0) Hematocrit 46.1 % (37.0-47.0) Mean Corpuscular Volume 101 FL (80-99) H Mean Corpuscular Hemoglobin 30.8 PG (27.0-31.0) Mean Corpuscular Hemoglobin Concent 30.6 G/DL (32.0-36.0) L Red Cell Distribution Width 15.6 % (11.6-14.8) H Platelet Count 305 K/UL (150-450) Mean Platelet Volume 6.3 FL (6.5-10.1) L Neutrophils (%) (Auto) % (45.0-75.0) Lymphocytes (%) (Auto) % (20.0-45.0) Monocytes (%) (Auto) % (1.0-10.0) Eosinophils (%) (Auto) % (0.0-3.0) Basophils (%) (Auto) % (0.0-2.0) Differential Total Cells Counted 100 Neutrophils % (Manual) 86 % (45-75) H Lymphocytes % (Manual) 6 % (20-45) L Monocytes % (Manual) 3 % (1-10) Eosinophils % (Manual) 0 % (0-3) Basophils % (Manual) 0 % (0-2) Band Neutrophils 5 % (0-8) Platelet Estimate Adequate Platelet Morphology Normal Hypochromasia 1+ Anisocytosis 1+ Macrocytosis 1+ Sodium Level 138 MMOL/L (136-145) Potassium Level 4.7 MMOL/L (3.5-5.1) Chloride Level 104 MMOL/L (98-107) Carbon Dioxide Level 27 MMOL/L (21-32) Anion Gap 7 mmol/L (5-15) Blood Urea Nitrogen 24 mg/dL (7-18) H Creatinine 0.9 MG/DL (0.55-1.30) Estimat Glomerular Filtration Rate > 60 mL/min (>60) Glucose Level 214 MG/DL (74-106) #H Calcium Level 7.2 MG/DL (8.5-10.1) L Objective HEAD AND NECK: Shows mild JVD. LUNGS: Decreased breath sounds. CARDIOVASCULAR: Regular S1, S2 with no gallop. ABDOMEN: Soft. EXTREMITIES: A 1+ pitting edema. RACHEL DING Sep 14, 2017 16:03
--- NOTE | 2017-09-14 16:44 | Pulmonology Progress Note ---
Assessment/Plan Assessment/Plan 1. Chronic obstructive pulmonary disease exacerbation. 2. Urinary tract infection. 3. Leukocytosis. 4. Chest pain, rule out acute coronary syndrome. 5. Hypertension. 6. Diabetes. 7. Shortness of breath. 8. DVT PLAN: Continue DuoNeb Continue steroids and antibiotics. O2. WBC still high, prob due to steroids Lovenox Subjective Respiratory: Denies: productive cough, shortness of breath Allergies: Coded Allergies: No Known Allergies (Unverified , 01/02/15) Objective Last 24 Hour Vital Signs Date Time Temp Pulse Resp B/P (MAP) Pulse Ox O2 Delivery O2 Flow Rate FiO2 09/14/17 12:00 97.3 70 18 131/83 95 Room Air 09/14/17 09:02 122/86 09/14/17 08:00 97.5 92 18 122/86 93 Room Air 09/14/17 04:55 97.8 92 18 126/78 97 Room Air 09/14/17 04:00 92 09/14/17 00:05 97 Room Air 09/14/17 00:00 97.7 94 18 135/95 96 Room Air 09/13/17 23:48 96 09/13/17 20:48 76 20 98 Nasal Cannula 2.0 28 09/13/17 20:40 36 09/13/17 20:40 87 18 96 Nasal Cannula 2.0 09/13/17 20:06 97 09/13/17 20:00 98.2 82 18 126/82 98 09/13/17 20:00 20 98 Nasal Cannula 2.0 Intake and Output 09/13/17 09/14/17 19:00 07:00 Intake Total 350 ml 555.001 ml Output Total 300 ml Balance 350 ml 255.001 ml Intake Oral 240 ml IV Total 110 ml 555.001 ml Output Urine Total 300 ml # Bowel Movements 1 General Appearance: no acute distress Respiratory/Chest: decreased breath sounds Cardiovascular: normal rate Laboratory Tests 09/14/17 05:40: White Blood Count 22.4*H, Red Blood Count 4.59, Hemoglobin 14.1, Hematocrit 46.1 , Mean Corpuscular Volume 101H, Mean Corpuscular Hemoglobin 30.8, Mean Corpuscular Hemoglobin Concent 30.6L, Red Cell Distribution Width 15.6H, Platelet Count 305, Mean Platelet Volume 6.3L, Neutrophils (%) (Auto) , Lymphocytes (%) (Auto) , Monocytes (%) (Auto) , Eosinophils (%) (Auto) , Basophils (%) (Auto) , Differential Total Cells Counted 100, Neutrophils % ( Manual) 86H, Lymphocytes % (Manual) 6L, Monocytes % (Manual) 3, Eosinophils % ( Manual) 0, Basophils % (Manual) 0, Band Neutrophils 5, Platelet Estimate Adequate, Platelet Morphology Normal, Hypochromasia 1+, Anisocytosis 1+, Macrocytosis 1+, Sodium Level 138, Potassium Level 4.7, Chloride Level 104, Carbon Dioxide Level 27, Anion Gap 7, Blood Urea Nitrogen 24H, Creatinine 0.9, Estimat Glomerular Filtration Rate > 60, Glucose Level 214#H, Calcium Level 7.2L Current Medications Medications (Trade) Dose Ordered Sig/Debbie Route PRN Reason Start Time Stop Time Status Last Admin Dose Admin Acetaminophen (Tylenol) 650 mg Q4H PRN ORAL Mild Pain (Pain Scale 1-3) 09/13/17 17:00 10/08/17 12:59 Albuterol/ Ipratropium (Albuterol/ Ipratropium) 3 ml Q4H PRN HHN Shortness of Breath 09/13/17 20:00 09/18/17 19:59 09/13/17 20:43 Aspirin (ASA) 81 mg DAILY ORAL 09/14/17 09:00 10/09/17 08:59 09/14/17 09:01 Calcium Carbonate (Calcium Carbonate) 650 mg THREE TIMES A DAY ORAL 09/13/17 18:00 10/08/17 17:59 09/14/17 12:16 Cefepime HCl 2 gm/ Dextrose 55 ml @ 110 mls/hr EVERY 12 HOURS IVPB 09/13/17 21:00 09/15/17 16:29 09/14/17 09:01 Dextrose (Dextrose 50%) STAT PRN IV Hypoglycemia 09/14/17 13:15 10/08/17 13:14 Enoxaparin Sodium (Lovenox) 90 mg EVERY 12 HOURS SUBQ 09/13/17 21:00 10/10/17 20:59 09/14/17 09:04 Furosemide (Lasix) 40 mg DAILY ORAL 09/14/17 09:00 10/13/17 08:59 09/14/17 09:03 Insulin Aspart (NovoLOG) BEFORE MEALS AND HS SUBQ 09/13/17 16:30 10/08/17 16:29 09/14/17 12:21 Insulin Detemir (Levemir) 10 units BID SUBQ 09/13/17 18:00 10/12/17 20:59 09/14/17 09:11 Lisinopril (Prinivil) 20 mg DAILY ORAL 09/14/17 09:00 10/12/17 11:44 09/14/17 09:02 Ondansetron HCl (Zofran) 4 mg Q6H PRN IVP Nausea & Vomiting 09/13/17 19:00 10/08/17 12:59 Pantoprazole (Protonix) 40 mg DAILY ORAL 09/14/17 09:00 10/09/17 08:59 09/14/17 09:02 Prednisone (predniSONE) 20 mg Q12HR ORAL 09/13/17 21:00 10/13/17 20:59 09/14/17 09:03 Temazepam (Restoril) 15 mg HSPRN PRN ORAL Insomnia 09/13/17 21:15 09/20/17 21:14 09/13/17 21:25 Vancomycin HCl (Vanco rx to dose) 1 ea DAILY PRN MISC Per rx protocol 09/14/17 09:00 10/08/17 15:14 IKE ORDONEZ Sep 14, 2017 16:44
--- NOTE | 2017-09-14 20:15 | Progress Note ---
DATE: 09/14/2017 SUBJECTIVE: This is an elderly female, who is currently in the bed, comfortable, feeling better. Short of breath has improved. OBJECTIVE: VITAL SIGNS: Blood pressure is 120/70, pulse 60, respirations 18, and no fever. CHEST: Bilaterally clear. CARDIOVASCULAR: Regular rhythm. No gallop. No murmur. ABDOMEN: Soft. EXTREMITIES: CCE. NEUROLOGICAL: No focal deficit. ASSESSMENT: 1. Chronic obstructive pulmonary disease. 2. Obesity. 3. Hypertension. PLAN: 1. Continue bronchodilator treatment. 2. Oxygen. 3. PT and OT. Melvin Self M.D. DR: Caroline JOB#: [id number] CC:
[2017-09-14 20:21] VITALS: BP 136/81
--- NOTE | 2017-09-14 21:20 | Nephrology Progress Note ---
Assessment/Plan Problem List: (1) COPD exacerbation (2) Diabetes mellitus (3) Chest pain (4) ACS (acute coronary syndrome) (5) Leukocytosis Assessment: due to steroids. Plan abx per ID. resp care per pulm taper steroids soon. monitor labs. cardio following. monitor renal function. Subjective Subjective Still congested. Objective Objective Last 24 Hour Vital Signs Date Time Temp Pulse Resp B/P (MAP) Pulse Ox O2 Delivery O2 Flow Rate FiO2 09/14/17 20:21 98.0 96 20 136/81 98 Room Air 09/14/17 16:00 97.1 89 18 126/88 98 Room Air 09/14/17 16:00 96 09/14/17 12:00 97.3 70 18 131/83 95 Room Air 09/14/17 12:00 99 09/14/17 09:02 122/86 09/14/17 08:00 97.5 92 18 122/86 93 Room Air 09/14/17 08:00 96 09/14/17 04:55 97.8 92 18 126/78 97 Room Air 09/14/17 04:00 92 09/14/17 00:05 97 Room Air 09/14/17 00:00 97.7 94 18 135/95 96 Room Air 09/13/17 23:48 96 Intake and Output 09/13/17 09/14/17 19:00 07:00 Intake Total 350 ml 555.001 ml Output Total 300 ml Balance 350 ml 255.001 ml Intake Oral 240 ml IV Total 110 ml 555.001 ml Output Urine Total 300 ml # Bowel Movements 1 Laboratory Tests 09/14/17 05:40: White Blood Count 22.4*H, Red Blood Count 4.59, Hemoglobin 14.1, Hematocrit 46.1 , Mean Corpuscular Volume 101H, Mean Corpuscular Hemoglobin 30.8, Mean Corpuscular Hemoglobin Concent 30.6L, Red Cell Distribution Width 15.6H, Platelet Count 305, Mean Platelet Volume 6.3L, Neutrophils (%) (Auto) , Lymphocytes (%) (Auto) , Monocytes (%) (Auto) , Eosinophils (%) (Auto) , Basophils (%) (Auto) , Differential Total Cells Counted 100, Neutrophils % ( Manual) 86H, Lymphocytes % (Manual) 6L, Monocytes % (Manual) 3, Eosinophils % ( Manual) 0, Basophils % (Manual) 0, Band Neutrophils 5, Platelet Estimate Adequate, Platelet Morphology Normal, Hypochromasia 1+, Anisocytosis 1+, Macrocytosis 1+, Sodium Level 138, Potassium Level 4.7, Chloride Level 104, Carbon Dioxide Level 27, Anion Gap 7, Blood Urea Nitrogen 24H, Creatinine 0.9, Estimat Glomerular Filtration Rate > 60, Glucose Level 214#H, Calcium Level 7.2L Height (Feet): 5 Height (Inches): 4.00 Weight (Pounds): 195 AMRITA COATES Sep 14, 2017 21:20
[2017-09-14] MEDS ORDERED: NS 275ml ONE (21:51)
[2017-09-14] MEDS ORDERED: Tubing IV Secondary IV ONE (21:51)
--- NOTE | 2017-09-15 18:11 | Discharge Summary ---
Discharge Summary Hospital Course Date of Admission Sep 08, 2017 at 10:20 Date of Discharge Sep 14, 2017 at 21:52 Admitting Diagnosis copd exacerbation HPI Soheila Kelly is a 61 year old female who was admitted on Sep 08, 2017 at 10: 20 for Chronic Obstructive Pulmonary Disease Exacerbation Hospital Course [id number] Discharge Discharge Disposition Patient was discharged to Acute Care Facility(02) Discharge Diagnoses: Mary Pepper NP Sep 15, 2017 18:11
--- NOTE | 2017-09-16 04:30 | Discharge Summary 2 SIG ---
DATE OF ADMISSION: 09/08/2017 DATE OF DISCHARGE: 09/14/2017 CONSULTANTS: 1. Romaine Reed M.D. 2. Bayron Moran M.D. 3. Billy Roblero M.D. 4. Thanh Gee M.D. BRIEF HOSPITAL COURSE: The patient is a 61-year-old female with past medical history significant for diabetes type 2, hypertension, and chronic obstructive pulmonary disease, presented to emergency room with worsening shortness of breath. Symptoms started three days prior. She had SOB, which was relieved with rest. She had been using her inhalers more often, however, did not help relieve her symptoms. She presented to ED. She was also complaining of left-sided chest pain, which is worse with deep inspiration. She had been having cough with whitish sputum. She was recently hospitalized at an outside facility and was told to follow up as outpatient, but she never did. She stopped taking her blood pressure medications. On evaluation at ED, she was found to have leukocytosis, WBC was 23. Chest x-ray showed questionable mild interstitial edema, no pleural effusion, and no pneumothorax. Urinalysis showed urine WBC 10 to 15 with 2+ leukocyte esterase and positive nitrites. She was admitted for evaluation of shortness of breath and was started on antibiotics cefepime and vancomycin. Zithromax was added for atypical coverage. She was given nebulizer treatments and was placed on steroids. She had a venous duplex of lower extremities that was positive for acute DVT of the left leg. She was given Lovenox. Urine culture showed growth of Gram-positive organisms. She had persistent leukocytosis, suspect secondary to steroid use together with infection. Blood culture did not isolate any growth. While on telemetry, she had episodes of ventricular tachycardia. Echocardiogram showed severe cardiomyopathy with ejection fraction of only 20% to 25%. She will be needing cardiac catheterization to evaluate her coronary artery disease. Heart failure therapy was maximized including Lasix, lisinopril, and Aldactone. She was eventually transferred to [facility]. FINAL DIAGNOSES: 1. Acute chronic obstructive pulmonary disease exacerbation. 2. Acute pneumonia. 3. Urinary tract infection. 4. Severe sepsis. 5. Acute left leg deep venous thrombosis. 6. Diabetes mellitus. 7. Chest pain, possible acute coronary syndrome. 8. Severe cardiomyopathy. 9. Severe protein-calorie malnutrition. 10. Secondary polycythemia. DISPOSITION: The patient was transferred to [facility]. Nba Oscar M.D. I have been assigned to dictate discharge summary on this account and I was not involved in the patient's management. Mary Pepper N.P. DR: Lucas JOB#: [id number] CC: LANDY
== END 2017-09-14 21:52 | disposition short-term general hospital (02) | DRG 720 ==
LOC: EMR 09:05 → 2E 10:20 → EDBEDREQ 11:18 → 2E 09-10 14:16 → 3E 09-13 15:00 → 2E 09-13 17:40
DX: A41.9 Sepsis, unspecified organism (principal); E43 Unspecified severe protein-calorie malnutrition; J18.9 Pneumonia, unspecified organism; I24.9 Acute ischemic heart disease, unspecified; I11.0 Hypertensive heart disease with heart failure; D75.1 Secondary polycythemia; I50.9 Heart failure, unspecified; I42.9 Cardiomyopathy, unspecified; I82.412 Acute embolism and thrombosis of left femoral vein; I47.1 Supraventricular tachycardia; R65.20 Severe sepsis without septic shock; J44.1 Chronic obstructive pulmonary disease with (acute) exacerbation; N39.0 Urinary tract infection, site not specified; E11.9 Type 2 diabetes mellitus without complications; F41.9 Anxiety disorder, unspecified; F17.210 Nicotine dependence, cigarettes, uncomplicated; Z68.33 Body mass index [BMI] 33.0-33.9, adult; E66.9 Obesity, unspecified; R09.02 Hypoxemia; Z79.52 Long term (current) use of systemic steroids; T38.0X5A Adverse effect of glucocorticoids and synthetic analogues, initial encounter; Y92.89 Other specified places as the place of occurrence of the external cause
CPT/HCPCS: 36415; 36600; 71010; 80048; 80053; 80061; 80202; 81003; 82248; 82270; 82803; 82962; 83036; 83605; 83735; 83880; 84443; 84484; 85007; 85025; 87040; 87086; 93005; 93306; 93970; 94640; 94664; J1815; J7620; S5561

== ENCOUNTER 2017-09-27 14:08 | Emergency (ER) | payer MEDICAID ==
[~2017-09-27] VITALS: Ht 154.9 cm; Wt 72.6 kg
--- NOTE | 2017-09-27 15:10 | Emergency Room Report ---
History of Present Illness General Chief Complaint: Medication Refill Present Illness HPI 61 YO Female presents to the ED c/o running out of her medication for bronchitis. Pt. is requesting refill. She reports taking metformin, lisinopril, Lasix in addition to albuterol. States that she was recently discharged from [place] and was not given prescriptions to fill. Denies fevers or chills. Reports Cough that is non-productive. She denies pain at this time. Denies SOB , wheezing or dyspnea. Denies polyuria or polydipsia. Denies CP, Palpitations, LOC, AMS, dizziness, Changes in Vision, Sensation, paresthesias, or a sudden severe headache. Allergies: Coded Allergies: No Known Allergies (Unverified , 01/02/15) Patient History Past Medical History: see triage record Past Surgical History: none Pertinent Family History: none Reviewed Nursing Documentation: PMH: Agreed, PSxH: Agreed Nursing Documentation-PMH Hx Cardiac Problems: No Hx Hypertension: Yes Hx Pacemaker: No Hx Asthma: Yes - Bronchitis Hx COPD: No Hx Diabetes: Yes Hx Cancer: No Hx Gastrointestinal Problems: No Hx Dialysis: No Hx Neurological Problems: No Hx Cerebrovascular Accident: No Hx Seizures: No Review of Systems All Other Systems: negative except mentioned in HPI Physical Exam Vital Signs Date Time Temp Pulse Resp B/P (MAP) Pulse Ox O2 Delivery O2 Flow Rate FiO2 09/27/17 14:11 98.8 120 20 130/83 100 Room Air Sp02 EP Interpretation: reviewed, normal General Appearance: no apparent distress, alert, GCS 15, non-toxic Head: normocephalic, atraumatic Eyes: bilateral eye normal inspection, bilateral eye PERRL ENT: hearing grossly normal, normal voice Neck: full range of motion Respiratory: chest non-tender, lungs clear, normal breath sounds, no respiratory distress, no accessory muscle use, speaking full sentences, wheezing - scant bilateral wheezes Cardiovascular #1: regular rate, rhythm, no edema, normal capillary refill Musculoskeletal: back normal, gait/station normal, normal range of motion, non- tender Neurologic: alert, oriented x3, responsive, motor strength/tone normal, sensory intact, normal gait, speech normal, grossly normal Psychiatric: judgement/insight normal Skin: normal color, no rash, warm/dry, well hydrated Medical Decision Making PA Attestation Dr. brandt is my supervising Physician whom patient management has been discussed with. Diagnostic Impression: Primary Impression: Encounter for medication refill Additional Impression: Bronchitis ER Course 61 YO Female presents to the ED c/o running out of her medication for bronchitis. Pt. is requesting refill. She reports taking metformin, lisinopril, Lasix in addition to albuterol. States that she was recently discharged from [place] and was not given prescriptions to fill. Denies fevers or chills. Reports Cough that is non-productive. She denies pain at this time. Denies SOB , wheezing or dyspnea. Denies polyuria or polydipsia. Denies CP, Palpitations, LOC, AMS, dizziness, Changes in Vision, Sensation, paresthesias, or a sudden severe headache. Ddx considered but are not limited to: drug seeking, OD, non-compliance, Vital signs: are WNL, pt. is afebrile H&PE are most consistent with need for medication refill and acute bronchitis exacerbation. ORDERS: none required at this time, the diagnosis is clinical ED INTERVENTIONS: -Albuterol HHN DISCHARGE: At this time pt. is stable for d/c to home. Will provide printed patient care instructions, and any necessary prescriptions. Care plan and follow up instructions have been discussed with the patient prior to discharge. Last Vital Signs Date Time Temp Pulse Resp B/P (MAP) Pulse Ox O2 Delivery O2 Flow Rate FiO2 09/27/17 14:11 98.8 120 20 130/83 100 Room Air Disposition: HOME, SELF-CARE Condition: Stable Scripts Albuterol Sulfate* (ALBUTEROL SULFATE MDI*) 8.5 Gm Hfa.aer.ad 2 PUFF INH Q4H, #1 INH 0 Refills Prov: Xiomara Bacon P.A. 09/27/17 Metformin Hcl* (METFORMIN HCL*) 850 Mg Tablet 850 MG ORAL DAILY, #15 TAB Prov: Xiomara Bacon P.A. 09/27/17 Prednisone* (PREDNISONE*) 20 Mg Tablet 20 MG ORAL BID, #10 TAB 0 Refills Prov: Xiomara Bacon P.A. 09/27/17 Lisinopril (LISINOPRIL*) 20 Mg Tablet 20 MG ORAL DAILY, #15 TAB Prov: Xiomara Bacon P.A. 09/27/17 Furosemide* (LASIX*) 40 Mg Tablet 40 MG ORAL DAILY, #15 TAB Prov: Xiomara Bacon 09/27/17 D-Methorphan Hb/Prometh Hcl* (PROMETHAZINE-DM SYRUP*) 118 Ml Syrup 5 ML ORAL Q6H Y for For Cough, #118 ML 0 Refills Prov: Xiomara Bacon 09/27/17 Referrals: YEN BURROUGHS,REFERRING (PCP) Patient Instructions: Medicine Refill at the Emergency Department Additional Instructions: Take medications as directed. Not all of your medications are known, therefore only some are being refilled, you must contact your Primary Care Provider to review and update your medications! Follow up with a Primary Care Provider in 3-5 days, even if your symptoms have resolved. --Please review list of primary care clinics, if you do not already have a primary care provider Return sooner to ED if new symptoms occur, or current symptoms become worse. - Please note that this Emergency Department Report was dictated using viblasttelephoto engineer technology software, occasionally this can lead to erroneous entry secondary to interpretation by the dictation equipment. Xiomara Bacon Sep 27, 2017 15:10
[2017-09-27] MEDS ORDERED: Albuterol ud Inhalation HHN ONE (15:15)
[2017-09-27] MEDS ORDERED: LISINOPRIL20 MG ORAL (15:41)
[2017-09-27] MEDS ORDERED: METFORMIN HCL850 M1 ORAL (15:41)
[2017-09-27] MEDS ORDERED: PREDNISONE20 MG ORAL (15:41)
[2017-09-27] MEDS ORDERED: ALBUTEROL SULF8.5 GM INH (15:41)
[2017-09-27] MEDS ORDERED: PROMETHAZINE-D118 ML ORAL (15:41)
[2017-09-27] MEDS ORDERED: FUROSEMIDE40 MG ORAL (15:41)
[2017-09-27 16:15] VITALS: BP 135/87
== END 2017-09-27 16:10 | disposition home or self-care (01) ==
LOC: EMR 14:25
DX: Z76.0 Encounter for issue of repeat prescription (principal); J45.909 Unspecified asthma, uncomplicated; I10 Essential (primary) hypertension
CPT/HCPCS: 99283

== ENCOUNTER 2017-10-12 13:17 | Emergency (ER) | payer MEDICAID ==
[~2017-10-12] VITALS: Ht 162.6 cm; Wt 84.8 kg
[~2017-10-12 13:17] MED LIST changes: +FUROSEMIDE40 MG ORAL; +LISINOPRIL20 MG ORAL
[2017-10-12] MEDS ORDERED: LASIX40 MG ORAL (13:31)
[2017-10-12] MEDS ORDERED: ASPIRIN81 MG ORAL (13:31)
[2017-10-12] MEDS ORDERED: VENTOLIN HFA18 GM INH (13:32)
[2017-10-12] MEDS ORDERED: FUROSEMIDE20 M1 ORAL (13:54)
--- NOTE | 2017-10-12 13:55 | Emergency Room Report ---
History of Present Illness General Chief Complaint: General Complaint Source: Patient Present Illness HPI Patient is a 61-year-old female is presents today with complaint of bilateral lower extremity edema that began a week ago. She states the edema is worse when she sees with her legs hanging. She has not taken any medication and has not been taking Lasix. She denies any chest pain, shortness of breath, orthopnea, dyspnea on exertion or associated symptoms. She has a history of diabetes, hypertension CHF. She denies any tobacco, alcohol or drug use.patient is also requesting medication for sleeping Allergies: Coded Allergies: No Known Allergies (Unverified , 01/02/15) Patient History Reviewed Nursing Documentation: PMH: Agreed, PSxH: Agreed Nursing Documentation-PMH Past Medical History: No History, Except For Hx Cardiac Problems: Yes Hx Hypertension: Yes Hx Pacemaker: No Hx Asthma: Yes - Bronchitis Hx COPD: No Hx Diabetes: Yes Hx Cancer: No Hx Gastrointestinal Problems: No Hx Dialysis: No History Of Psychiatric Problem: No Hx Neurological Problems: No Hx Cerebrovascular Accident: No Hx Seizures: No Review of Systems All Other Systems: negative except mentioned in HPI Physical Exam Vital Signs Date Time Temp Pulse Resp B/P (MAP) Pulse Ox O2 Delivery O2 Flow Rate FiO2 10/12/17 13:24 98.6 112 16 134/86 96 Room Air Sp02 EP Interpretation: reviewed, normal General Appearance: no apparent distress, alert, GCS 15, non-toxic Head: normocephalic, atraumatic Eyes: bilateral eye normal inspection, bilateral eye PERRL ENT: hearing grossly normal, normal pharynx, no angioedema, normal voice Neck: full range of motion, supple/symm/no masses Respiratory: chest non-tender, lungs clear, normal breath sounds, speaking full sentences Cardiovascular #1: regular rate, rhythm, no edema, other - 2 pitting edema BLE , no overlying skin changes, negative homans, pedal pulses present and equal, cap refill brisk Cardiovascular #2: 2+ carotid (R), 2+ carotid (L), 2+ radial (R), 2+ radial (L) , 2+ dorsalis pedis (R), 2+ dorsalis pedis (L) Gastrointestinal: normal bowel sounds, non tender, soft, non-distended, no guarding, no rebound Rectal: deferred Genitourinary: normal inspection, no CVA tenderness Musculoskeletal: back normal, gait/station normal, normal range of motion, non- tender, calf tenderness Neurologic: alert, oriented x3, responsive, motor strength/tone normal, sensory intact, speech normal Psychiatric: judgement/insight normal, memory normal, mood/affect normal, no suicidal/homicidal ideation Reflexes: 3+ bicep (R), 3+ bicep (L), 3+ tricep (R), 3+ tricep (L), 3+ knee (R) , 3+ knee (L) Skin: normal color, no rash, warm/dry, well hydrated Lymphatic: no adenopathy Medical Decision Making PA Attestation supervising physician Dr. Cordova Diagnostic Impression: Primary Impression: Lower extremity edema Additional Impression: Encounter for medication refill ER Course Exacerbation the lungs are clear to auscultation bilaterally. Pulse ox is within normal limits. Patient has no orthopnea or dyspnea on exertion. Patient is discharged home with [facility] to follow with PCP for reevaluation. Patient understands and is agreeable with plan. Discussed case with Dr. Cordova who agrees with disposition and plan. Pt also requesting medication for sleeping, will prescribe Benadryl. Last Vital Signs Date Time Temp Pulse Resp B/P (MAP) Pulse Ox O2 Delivery O2 Flow Rate FiO2 10/12/17 13:24 98.6 112 16 134/86 96 Room Air Status: improved Disposition: HOME, SELF-CARE Condition: Stable Scripts Diphenhydramine HCl (Benadryl) 25 Mg Capsule 25 MG PO Q6HR, #20 CAP Prov: Ricardo,Merna P.A. 10/12/17 Furosemide* (LASIX*) 20 Mg Tablet 20 MG ORAL DAILY for 7 Days, #7 TAB Prov: Ricardo,Merna P.A. 10/12/17 Merna Silva P.A. Oct 12, 2017 13:54
[2017-10-12] MEDS ORDERED: BENADRYL25 M3 PO (13:59)
[2017-10-12 14:00] VITALS: BP 134/86
== END 2017-10-12 14:30 | disposition home or self-care (01) ==
LOC: EMR 14:20
DX: R60.0 Localized edema (principal); Z76.0 Encounter for issue of repeat prescription; I10 Essential (primary) hypertension; E11.9 Type 2 diabetes mellitus without complications; J45.909 Unspecified asthma, uncomplicated
CPT/HCPCS: 99283

== ENCOUNTER 2017-11-03 13:07 | Emergency (ER) | payer MEDICAID ==
[~2017-11-03] VITALS: Ht 162.6 cm; Wt 84.4 kg
[~2017-11-03 13:07] MED LIST changes: +ASPIRIN81 MG ORAL; +BENADRYL25 M3 PO; +FUROSEMIDE20 M1 ORAL; +LASIX40 MG ORAL
--- NOTE | 2017-11-03 13:16 | Emergency Room Report ---
History of Present Illness General Chief Complaint: Dyspnea/Respdistress Source: Patient, Medical Record (Eugene Cordova) Present Illness HPI Patient is a 61-year-old female presented after increased difficulty breathing. Patient gradual onset of symptoms. Patient had prior history of congestive heart failure. She had reportedly been taking diuretics.Patient reports having a recent procedure for DVT. She had reportedly been taking aspirin as well as diuretics and inhaler. The patient was having increased leg swelling. She reported having a nonproductive cough. She denied any fever. Patient stated that she had run out of her diuretic. (Eugene Cordova) Allergies: Coded Allergies: No Known Allergies (Unverified , 01/02/15) Patient History Past Medical History: see triage record Reviewed Nursing Documentation: PMH: Agreed, PSxH: Agreed (Eugene Cordova) Nursing Documentation-PMH Past Medical History: No History, Except For Hx Cardiac Problems: Yes Hx Hypertension: Yes Hx Pacemaker: No Hx Asthma: Yes - Bronchitis Hx COPD: No Hx Diabetes: Yes Hx Cancer: No Hx Gastrointestinal Problems: No Hx Dialysis: No Hx Neurological Problems: No Hx Cerebrovascular Accident: No Hx Seizures: No (Eugene Cordova) Review of Systems All Other Systems: negative except mentioned in HPI (Eugene Cordova) Physical Exam Vital Signs Date Time Temp Pulse Resp B/P (MAP) Pulse Ox O2 Delivery O2 Flow Rate FiO2 11/03/17 13:09 98.4 105 18 134/87 95 Room Air 98.4 Sp02 EP Interpretation: reviewed, normal General Appearance: normal inspection, no apparent distress, alert, GCS 15, Chronically Ill Head: atraumatic ENT: normal ENT inspection, hearing grossly normal, normal voice Neck: normal inspection, full range of motion, supple, no bony tend Respiratory: normal inspection, no respiratory distress, no retraction, wheezing Cardiovascular #1: regular rate, rhythm, edema Gastrointestinal: normal inspection, normal bowel sounds, non tender, soft, no guarding, no hernia Genitourinary: no CVA tenderness Musculoskeletal: normal inspection, back normal, normal range of motion Neurologic: normal inspection, alert, oriented x3, responsive, head of operation and logistics III-XII nml as tested, motor strength/tone normal, speech normal Psychiatric: normal inspection, judgement/insight normal, mood/affect normal Skin: normal inspection, normal color, no rash (Eugene Cordova) Medical Decision Making Diagnostic Impression: Primary Impression: Dyspnea Qualified Codes: R06.00 - Dyspnea, unspecified Additional Impressions: Medication refill CHF (congestive heart failure) Qualified Codes: I50.9 - Heart failure, unspecified COPD exacerbation ER Course Patient presented for shortness of breath. Differential diagnosis included but was not limited to CHF, asthma exacerbation, pulmonary embolism, influenza, pneumonia. Because of patient complexity, laboratory testing and imaging studies were ordered Patient appears to have both CHF and asthma. Patient was started on Lasix and breathing treatments. She was endorsed to Dr. Rahman pending labs and CXR. (Eugene Corodva) ER Course Patient signed out to me by Dr Cordova at 230pm P/w SOB, mulitfactorial COPD and CHF exacerbation Labs, CXR c/w acute on chronic CHF Patient urinated "8 times" after IV lasix CXR shows pulm congestion but no PNA Feels better Strongly advised patient stay for admission and further evaluation Both myself and Dr Cordova recommended admission but she states its her son's birthday and she wants to leave Patient has capacity, is alert and oriented X4. Signed AMA paperwork I reviewed her PMHX with her - she needs refill of Lasix which was provided She is also requesting Rx for nebulizer machine. I explained to her that insurance/PMD need to authorize but she states she doesnt have PMD I said I would provide Rx but she might not get it from Pharmacy Patient understands to return to ER for worsening symptoms (IKE RAHMAN M.D.) EKG Diagnostic Results Rate: normal Rhythm: NSR ST Segments: no acute changes (Eugene Cordova) Rhythm Strip Diag. Results EP Interpretation: yes Rate: 67 Rhythm: NSR, no PVC's, no ectopy (IKE RAHMAN M.D.) Chest X-Ray Diagnostic Results Chest X-Ray Diagnostic Results : Chest X-Ray Ordered: Yes Indication: Shortness of Breath EP Interpretation: Yes Interpretation: no consolidation, no pneumothorax, other - Cardiomgaly, bilateral pulm congestion Electronically Signed by: Dr Ike Rahman MD (IKE RAHMAN M.D.) Last Vital Signs Date Time Temp Pulse Resp B/P (MAP) Pulse Ox O2 Delivery O2 Flow Rate FiO2 11/03/17 13:09 98.4 105 18 134/87 95 Room Air 98.4 Status: improved (Eugene Cordova) Status: improved (IKE RAHMAN M.D.) Disposition: AGAINST MEDICAL ADVICE Condition: Serious Scripts Albuterol Sulfate* (ALBUTEROL SULFATE HHN*) 2.5 Mg/3 Ml Vial.neb 2.5 MG HHN Q4H Y for Shortness of Breath, #25 VIAL Prov: IKE RAHMAN M.D. 11/03/17 Furosemide* (LASIX*) 40 Mg Tablet 40 MG ORAL DAILY for 30 Days, #30 TAB Prov: IKE RAHMAN M.D. 11/03/17 Acetaminophen With Codeine (T#3) (TYLENOL #3 TAB*) Y Tab 1 TAB ORAL QHS Y for For Cough for 7 Days, #14 TAB Prov: IKE RAHMAN M.D. 11/03/17 Nebulizer (Aeroneb Go Nebuliser) 1 Each Each EACH , #1 Prov: IKE RAHMAN M.D. 11/03/17 Eugene Cordova Nov 03, 2017 13:16 IKE RAHMAN M.D. Nov 03, 2017 15:05
[2017-11-03] MEDS ORDERED: Albuterol/Ipratropium 3ml neb HHN ONE ×2 (13:30→14:00)
[2017-11-03 13:43] LABS: BASOPHILS % (AUTO) 0.8 % (0.0-2.0); EOSINOPHILS % (AUTO) 0.4 % (0.0-3.0); HEMATOCRIT 44.2 % (37.0-47.0); HEMOGLOBIN 14.2 G/DL (12.0-16.0); LYMPHOCYTES % (AUTO) 25.4 % (20.0-45.0); MEAN CORPUSCULAR VOLUME 97 FL (80-99); MONOCYTES % (AUTO) 8.8 % (1.0-10.0); NEUTROPHILS % (AUTO) 64.6 % (45.0-75.0); PLATELET COUNT 301 K/UL (150-450); RED BLOOD COUNT 4.56 M/UL (4.20-5.40); RED CELL DISTRIBUTION WIDTH 16.1 % (11.6-14.8); WHITE BLOOD COUNT 9.2 K/UL (4.8-10.8)
[2017-11-03 13:56] LABS: INR 1.4 (0.9-1.1)
[2017-11-03 13:58] LABS: ANION GAP 8 mmol/L (5-15); BLOOD UREA NITROGEN 14 mg/dL (7-18); CALCIUM 8.5 MG/DL (8.5-10.1); CARBON DIOXIDE 26 MMOL/L (21-32); CHLORIDE 104 MMOL/L (98-107); POTASSIUM 4.1 MMOL/L (3.5-5.1); SODIUM 138 MMOL/L (136-145)
[2017-11-03 14:08] LABS: ALANINE AMINOTRANSFERASE 107 U/L (12-78); ALBUMIN 2.8 G/DL (3.4-5.0); ALBUMIN/GLOBULIN RATIO 0.7 (1.0-2.7); ALKALINE PHOSPHATASE 172 U/L (46-116); ASPARTATE AMINO TRANSFERASE 150 U/L (15-37); BILIRUBIN,TOTAL 1.2 MG/DL (0.2-1.0)
[2017-11-03 14:10] LABS: BILIRUBIN,DIRECT 0.6 MG/DL (0.0-0.3)
[2017-11-03 14:23] VITALS: BP 132/94
[2017-11-03] MEDS ORDERED: ACETAMINOPHEN-1 EAC1 ORAL (14:59)
[2017-11-03] MEDS ORDERED: FUROSEMIDE40 MG ORAL (14:59)
[2017-11-03] MEDS ORDERED: AERONEB GO NEB1 EACH MC (14:59)
[2017-11-03] MEDS ORDERED: ALBUTEROL2.5 MG/3 M HHN (15:00)
[2017-11-03 15:13] VITALS: BP 144/98
[2017-11-03 15:17] VITALS: BP 144/98
--- NOTE | 2017-11-03 16:00 | Diagnostic Imaging Report ---
Indication: Shortness of breath Technique: One view of the chest Comparison: 09/12/2017 Findings: Again demonstrated is cardiomegaly. There is suggestion of a nodular opacity in the lateral left hemithorax just above the left heart border which measures 2 cm long axis dimension. This was demonstrated to be an area of infiltrate on the previous study. There is mild generalized interstitial congestion. The pleural spaces are clear Impression: Cardiomegaly with congestive heart failure, appearing similar to prior exam of September 12, 2017. This finding agrees with the preliminary interpretation provided by the emergency room physician 2 cm left lung nodule, not evident previously but could have been obscured by surrounding infiltrate. This finding was discussed by phone with Dr. Pierce at the time of interpretation
--- NOTE | 2017-11-07 15:32 | Cardiology Report ---
APPROVED REPORT EKG Measurement Heart [id number] Sinus tachycardia Right atrial enlargement Right axis deviation Anterior infarct, age undetermined T wave abnormality, consider inferior ischemia Abnormal ECG
== END 2017-11-03 15:21 | disposition left against medical advice (07) ==
LOC: EMR 13:40
DX: I50.9 Heart failure, unspecified (principal); J44.1 Chronic obstructive pulmonary disease with (acute) exacerbation; I10 Essential (primary) hypertension; Z79.82 Long term (current) use of aspirin; Z86.718 Personal history of other venous thrombosis and embolism; E11.9 Type 2 diabetes mellitus without complications; R91.1 Solitary pulmonary nodule
CPT/HCPCS: 36415; 71045; 80053; 82248; 83880; 84484; 85025; 85610; 85730; 93005; 94640; 94664; 96374; 99284; J1940; J7620

== ENCOUNTER 2017-11-13 13:20 | Emergency (ER) | payer MEDICAID ==
[~2017-11-13] VITALS: Ht 162.6 cm; Wt 84.8 kg
[~2017-11-13 13:20] MED LIST changes: +AERONEB GO NEB1 EACH MC; +ALBUTEROL2.5 MG/3 M HHN
[2017-11-13 14:01] VITALS: BP 122/72
[2017-11-13 14:33] LABS: APPEARANCE,URINE SLIGHTLY CLOUDY; BILIRUBIN, URINE 1+ (NEGATIVE); GLUCOSE, URINE (UA) NEGATIVE (NEGATIVE); KETONES,URINE NEGATIVE (NEGATIVE); LEUKOCYTE ESTERASE ,URINE 1+ (NEGATIVE); NITRITE,URINE NEGATIVE (NEGATIVE); PH,URINE 5 (4.5-8.0); PROTEIN,URINE 3+ (NEGATIVE); UROBILINOGEN,URINE 4 MG/DL (0.0-1.0)
[2017-11-13 14:34] LABS: COLOR,URINE YELLOW
[2017-11-13] MEDS ORDERED: KEFLEX500 MG ORAL (15:08)
--- NOTE | 2017-11-13 16:05 | Emergency Room Report ---
History of Present Illness General Chief Complaint: Female Urogenital Problems Source: Patient Present Illness HPI 61-year-old female presents ED for evaluation. Patient complaining of decreased urinary frequency with foul-smelling urine for the last 3 days. Denies any dysuria. Denies any hematuria. Denies flank pain. No fevers or chills. Denies nausea or vomiting. No other aggravating relieving factors. Denies any other associated symptoms Allergies: Coded Allergies: No Known Allergies (Unverified , 01/02/15) Patient History Past Medical History: DM, HTN, asthma Past Surgical History: none Pertinent Family History: none Social History: Denies: smoking, alcohol use, drug use Now: No Immunizations: UTD Reviewed Nursing Documentation: PMH: Agreed, PSxH: Agreed Nursing Documentation-PMH Hx Cardiac Problems: Yes Hx Hypertension: Yes Hx Pacemaker: No Hx Asthma: Yes - Bronchitis Hx COPD: No Hx Diabetes: Yes Hx Cancer: No Hx Gastrointestinal Problems: No Hx Dialysis: No Hx Neurological Problems: No Hx Cerebrovascular Accident: No Hx Seizures: No Review of Systems All Other Systems: negative except mentioned in HPI Physical Exam Vital Signs Date Time Temp Pulse Resp B/P (MAP) Pulse Ox O2 Delivery O2 Flow Rate FiO2 11/13/17 13:30 98.0 114 17 141/89 97 Room Air 98.1 Sp02 EP Interpretation: reviewed, normal General Appearance: no apparent distress, alert, GCS 15, non-toxic Head: normocephalic, atraumatic Eyes: bilateral eye normal inspection, bilateral eye PERRL ENT: hearing grossly normal, normal pharynx, no angioedema, normal voice Neck: full range of motion, supple/symm/no masses Respiratory: chest non-tender, lungs clear, normal breath sounds, speaking full sentences Cardiovascular #1: regular rate, rhythm, no edema Cardiovascular #2: 2+ carotid (R), 2+ carotid (L), 2+ radial (R), 2+ radial (L) , 2+ dorsalis pedis (R), 2+ dorsalis pedis (L) Gastrointestinal: normal bowel sounds, non tender, soft, non-distended, no guarding, no rebound Rectal: deferred Genitourinary: normal inspection, no CVA tenderness Musculoskeletal: back normal, gait/station normal, normal range of motion, non- tender Neurologic: alert, oriented x3, responsive, motor strength/tone normal, sensory intact, speech normal Psychiatric: judgement/insight normal, memory normal, mood/affect normal, no suicidal/homicidal ideation Reflexes: 3+ bicep (R), 3+ bicep (L), 3+ tricep (R), 3+ tricep (L), 3+ knee (R) , 3+ knee (L) Skin: normal color, no rash, warm/dry, well hydrated Lymphatic: no adenopathy Medical Decision Making Diagnostic Impression: Primary Impression: UTI (urinary tract infection) Qualified Codes: N39.0 - Urinary tract infection, site not specified ER Course Hospital Course 61-year-old female presents with decreased urinary frequency, foul smelling urine Differential diagnoses include: UTI, cystitis, pyelonephritis Clinical course Patient placed on stretcher. After initial history and physical I ordered UA UA + bacteria. Discussed findings with patient. Will discharge on antibiotics Diagnosis - UTI Stable and discharged home with prescriptions for Rx Keflex. Instructed to followup with PMD. Return to ED if symptoms recur or worsen Labs Test 11/13/17 13:50 Urine Color Yellow Urine Appearance Slightly cloudy Urine pH 5 (4.5-8.0) Urine Specific Lynn 1.020 (1.005-1.035) Urine Protein 3+ (NEGATIVE) Urine Glucose (UA) Negative (NEGATIVE) Urine Ketones Negative (NEGATIVE) Urine Occult Blood 2+ (NEGATIVE) Urine Nitrite Negative (NEGATIVE) Urine Bilirubin 1+ (NEGATIVE) Urine Ictotest Negative Urine Urobilinogen 4 MG/DL (0.0-1.0) Urine Leukocyte Esterase 1+ (NEGATIVE) Urine RBC 2-4 /HPF (0 - 2) Urine WBC 2-4 /HPF (0 - 2) Urine Squamous Epithelial Cells Occasional /LPF Urine Bacteria Occasional /HPF (NONE) Last Vital Signs Date Time Temp Pulse Resp B/P (MAP) Pulse Ox O2 Delivery O2 Flow Rate FiO2 11/13/17 14:01 98.1 17 122/72 97 Room Air 98.1 11/13/17 13:30 114 Status: improved Disposition: HOME, SELF-CARE Condition: Stable Scripts Cephalexin* (KEFLEX*) 500 Mg Capsule 500 MG ORAL Q6H, #28 CAP 0 Refills Prov: ANGELICA BEYER M.D. 11/13/17 Patient Instructions: Urinary Tract Infection ANGELICA BEYER M.D. Nov 13, 2017 16:05
[2017-11-13 23:29] VITALS: BP 122/72
== END 2017-11-13 14:57 | disposition home or self-care (01) ==
LOC: EMR 14:07
DX: N39.0 Urinary tract infection, site not specified (principal); I10 Essential (primary) hypertension; E11.9 Type 2 diabetes mellitus without complications; J45.909 Unspecified asthma, uncomplicated
CPT/HCPCS: 81003; 99283